=== PATIENT | male | born 1940 | race Two or more races ===

== ENCOUNTER 2016-08-08 18:32 | Emergency (ER) | payer MEDICARE, BC ==
--- NOTE | 2016-08-08 19:25 | RAD ---
HISTORY: Chest pain, pneumonia, CHF COMPARISONS: June 07, 2012 VIEWS:1: Single frontal portable view of the chest at 7:20 PM FINDINGS: LINES AND TUBES: None. CARDIOMEDIASTINAL SILHOUETTE: The aorta is tortuous. The cardiomediastinal silhouette is otherwise normal for portable technique. PLEURA: The costophrenic angles are sharp. No pleural abnormalities are noted. LUNG PARENCHYMA: The lungs are clear. ABDOMEN: The upper abdomen is clear. There is no subphrenic gas. BONES AND SOFT TISSUES: No bone or soft tissue abnormalities are noted. IMPRESSION: NO ACTIVE CARDIOPULMONARY DISEASE.
[2016-08-08] MEDS: Aspirin Low Dose CHEW TAB* 81 MG PO ONE ×2 (19:26→19:39)
[2016-08-08 19:50] LABS: Hematocrit 39 % (42-52); Hemoglobin 12.7 g/dl (14.0-18.0); Mean Corpuscular HGB Conc 33 g/dl (31-36); Mean Corpuscular Hemoglobin 28 pg (27-31); Mean Corpuscular Volume 86 fL (80-94); Mean Platelet Volume 10 um3 (7.4-10.4); Red Cell Distribution Width 15 % (10.5-15); White Blood Count 7.2 10^3/ul (3.5-10.8)
[2016-08-08 19:51] LABS: Comments Flag Yes
[2016-08-08 19:54] LABS: Add Diff/Slide Review? Slide Review Added
[2016-08-08 20:04] LABS: Albumin 4.5 g/dL (3.2-5.2); BUN/Creatinine Ratio 16.8 (8-20); Calcium 9.7 mg/dL (8.6-10.3); EGFR African American 80.9 (>60); EGFR Non-African American 62.9 (>60); Globulin 2.9 g/dL (2-4); Potassium 4.2 mmol/L (3.5-5.0); Total Bilirubin 0.4 mg/dL (0.2-1.0); Total Protein 7.4 g/dL (6.4-8.9); Troponin I 0.01 ng/mL (<0.04)
[2016-08-08 20:50] VITALS: BP 162/60
--- NOTE | 2016-08-08 21:53 | ED ---
Kiki Merlos Claudia, scribed for Little Irizarry MD on 08/08/16 at 2012 . Palpitations / Dysrhythmia - HPI Summary HPI Summary: 76 year old male presents to the ED with intermittent episode of chest pressure and palpitations. The pt notes that the episode have been occurring for the past few weeks and have been waking him up and night and lasting a few minutes. He notes that he had an episode at 400am today of chest pressure and palpitations that woke him up and lasted a few minutes he also noted mild skin diaphoresis. He then went to his PCP office today and they consulted with Dr. Leigh and decided that he should come to the ED for lab work. Pt does not have Dx AFIB but has had palpitations for a while. PMHx of Atrial Septal Defect is noted and pt takes xaerlto daily for it. Pt does note the chest pressure to be a 6.5/10 and denies any SOB during these episodes. - History of Current Complaint Chief Complaint: EDChestWallPain Hx Obtained From: Patient Onset/Duration: Sudden Onset Timing: Intermittent Episodes Lasting: - Allergy/Home Medications Allergies/Adverse Reactions: Allergies Allergy/AdvReac Type Severity Reaction Status Date / Time No Known Allergies Allergy Verified 08/08/16 19:34 PMH/Surg Hx/FS Hx/Imm Hx Previously Healthy: Yes Endocrine/Hematology History: Reports: Hx Anemia Denies: Hx Diabetes Cardiovascular History: Reports: Hx Angina - heaviness, Hx Hypercholesterolemia , Other Cardiovascular Problems/Disorders - Atrial septal defect Denies: Hx Congestive Heart Failure, Hx Hypertension, Hx Pacemaker/ICD Respiratory History: Reports: Hx Sleep Apnea GI History: Reports: Hx Gastroesophageal Reflux Disease, Hx Hiatal Hernia History: Reports: Hx Benign Prostatic Hyperplasia Denies: Hx Dialysis, Hx Renal Disease Musculoskeletal History: Reports: Hx Arthritis, Hx Bursitis, Hx Gout, Hx Orthopedic Injury - left elbow fracture as teen., Hx Tendonitis Sensory History: Reports: Hx Contacts or Glasses - reading, Hx Hearing Aid - x2 , Hx Hearing Problem Opthamlomology History: Reports: Hx Contacts or Glasses - reading Neurological History: Reports: Hx Migraine Psychiatric History: Denies: Hx Panic Disorder - Surgical History Surgery Procedure, Year, and Place: Tonsils, appy Hx Anesthesia Reactions: No Infectious Disease History: No Infectious Disease History: Denies: History Other Infectious Disease, Traveled Outside the [place] in Last 30 Days - Family History Known Family History: Positive: Cardiac Disease - Social History Occupation: Retired Lives: With Family Alcohol Use: Daily Alcohol Amount: 1 glass wine /day Substance Use Type: Reports: None Smoking Status (MU): Former Smoker Type: Cigarettes, Pipe Length of Time of Smoking/Using Tobacco: pipe for 25 years25 year cigarettes (10 -20) per day Have You Smoked in the Last Year: No Review of Systems Positive: Skin Diaphoresis. Negative: Fever, Chills Eyes: Negative ENT: Negative Positive: Palpitations, Chest Pain - chest pressure Respiratory: Negative Gastrointestinal: Negative Genitourinary: Negative Musculoskeletal: Negative Skin: Negative Neurological: Negative Psychological: Normal All Other Systems Reviewed And Are Negative: Yes Physical Exam Triage Information Reviewed: Yes Vital Signs On Initial Exam: Initial Vitals Temp Pulse Resp BP Pulse Ox 97.3 F 61 18 158/78 100 08/08/16 18:37 08/08/16 18:37 08/08/16 18:37 08/08/16 18:37 08/08/16 18:37 Vital Signs Reviewed: Yes Appearance: Positive: Well-Appearing, No Pain Distress Skin: Positive: Warm, Skin Color Reflects Adequate Perfusion, Dry Eyes: Positive: EOMI, LENA ENT: Positive: Pharynx normal, TMs normal Neck: Positive: Supple, Nontender Respiratory/Lung Sounds: Positive: Clear to Auscultation, Breath Sounds Present. Negative: Rales, Rhonchi, Wheezes Cardiovascular: Positive: RRR. Negative: Leg Edema Left, Leg Edema Right Abdomen Description: Positive: Nontender, Soft. Negative: Distended, Guarding Musculoskeletal: Positive: Strength/ROM Intact Neurological: Positive: Sensory/Motor Intact, Alert, Oriented to Person Place, Time, CN Intact II-III Psychiatric: Positive: Affect/Mood Appropriate - Yumiko Coma Scale Coma Scale Total: 15 Diagnostics - Vital Signs Vital Signs Temp Pulse Resp BP Pulse Ox 08/08/16 19:32 99.3 F 63 14 170/86 98 08/08/16 19:02 63 99 08/08/16 19:00 152/73 08/08/16 18:37 97.3 F 61 18 158/78 100 - Laboratory Lab Results: Lab Results 08/08/16 08/08/16 08/08/16 Range/Units 19:34 19:34 19:39 WBC 7.2 (3.5-10.8) 10^3/ul RBC 4.50 (4.0-5.4) 10^6/ul Hgb 12.7 L (14.0-18.0) g/dl Hct 39 L (42-52) % MCV 86 (80-94) fL MCH 28 (27-31) pg MCHC 33 (31-36) g/dl RDW 15 (10.5-15) % Plt Count 108 L (150-450) 10^3/ul MPV 10 (7.4-10.4) um3 Neut % (Auto) 57.2 (38-83) % Lymph % (Auto) 28.2 (25-47) % Cross % (Auto) 10.7 H (1-9) % Eos % (Auto) 3.6 (0-6) % Baso % (Auto) 0.3 (0-2) % Absolute Neuts (auto) 4.1 (1.5-7.7) 10^3/ul Absolute Lymphs (auto) 2.0 (1.0-4.8) 10^3/ul Absolute Monos (auto) 0.8 (0-0.8) 10^3/ul Absolute Eos (auto) 0.3 (0-0.6) 10^3/ul Absolute Basos (auto) 0 (0-0.2) 10^3/ul Absolute Nucleated RBC 0.01 10^3/ul Nucleated RBC % 0.1 INR (Anticoag Therapy) 1.04 (0.89-1.11) Sodium 138 (133-145) mmol/L Potassium 4.2 (3.5-5.0) mmol/L Chloride 104 (101-111) mmol/L Carbon Dioxide 30 (22-32) mmol/L Anion Gap 4 (2-11) mmol/L BUN 19 (6-24) mg/dL Creatinine 1.13 (0.67-1.17) mg/dL Est GFR ( Amer) 80.9 (>60) Est GFR (Non-Af Amer) 62.9 (>60) BUN/Creatinine Ratio 16.8 (8-20) Glucose 103 H (70-100) mg/dL Lactic Acid (0.5-2.0) mmol/L Calcium 9.7 (8.6-10.3) mg/dL Total Bilirubin 0.40 (0.2-1.0) mg/dL AST 21 (13-39) U/L ALT 26 (7-52) U/L Alkaline Phosphatase 50 (34-104) U/L Troponin I 0.01 (<0.04) ng/mL Total Protein 7.4 (6.4-8.9) g/dL Albumin 4.5 (3.2-5.2) g/dL Globulin 2.9 (2-4) g/dL Albumin/Globulin Ratio 1.6 (1-3) 08/08/16 Range/Units 19:39 WBC (3.5-10.8) 10^3/ul RBC (4.0-5.4) 10^6/ul Hgb (14.0-18.0) g/dl Hct (42-52) % MCV (80-94) fL MCH (27-31) pg MCHC (31-36) g/dl RDW (10.5-15) % Plt Count (150-450) 10^3/ul MPV (7.4-10.4) um3 Neut % (Auto) (38-83) % Lymph % (Auto) (25-47) % Cross % (Auto) (1-9) % Eos % (Auto) (0-6) % Baso % (Auto) (0-2) % Absolute Neuts (auto) (1.5-7.7) 10^3/ul Absolute Lymphs (auto) (1.0-4.8) 10^3/ul Absolute Monos (auto) (0-0.8) 10^3/ul Absolute Eos (auto) (0-0.6) 10^3/ul Absolute Basos (auto) (0-0.2) 10^3/ul Absolute Nucleated RBC 10^3/ul Nucleated RBC % INR (Anticoag Therapy) (0.89-1.11) Sodium (133-145) mmol/L Potassium (3.5-5.0) mmol/L Chloride (101-111) mmol/L Carbon Dioxide (22-32) mmol/L Anion Gap (2-11) mmol/L BUN (6-24) mg/dL Creatinine (0.67-1.17) mg/dL Est GFR ( Amer) (>60) Est GFR (Non-Af Amer) (>60) BUN/Creatinine Ratio (8-20) Glucose (70-100) mg/dL Lactic Acid 0.7 (0.5-2.0) mmol/L Calcium (8.6-10.3) mg/dL Total Bilirubin (0.2-1.0) mg/dL AST (13-39) U/L ALT (7-52) U/L Alkaline Phosphatase (34-104) U/L Troponin I (<0.04) ng/mL Total Protein (6.4-8.9) g/dL Albumin (3.2-5.2) g/dL Globulin (2-4) g/dL Albumin/Globulin Ratio (1-3) Result Diagrams: 08/08/16 19:34 08/08/16 19:39 Lab Statement: Any lab studies that have been ordered have been reviewed, and results considered in the medical decision making process. - Radiology CXR Xray Interpretation: No Acute Changes - NO ACUTE CARDIOPULMONARY DISEASE Radiology Interpretation Completed By: Radiologist - EKG 1920 Cardiac Rate: NL EKG Rhythm: Sinus Bradycardia - 59 BEATS/MIN EKG Interpretation: RARE PAC Course/Dx - Course Course Of Treatment: pt with pac's labs o/w normal - Diagnoses Provider Diagnoses: Palpitations Discharge - Discharge Plan Condition: Stable Disposition: HOME Patient Education Materials: Palpitations (ED), Premature Atrial Contractions ( ED) Referrals: Cinda Leigh MD [Medical Doctor] - 3 Days Ye Uribe MD [Primary Care Provider] - 3 Days The documentation as recorded by the Kiki bo Claudia accurately reflects the service I personally performed and the decisions made by Edie bustos Justine, MD.
== END 2016-08-08 20:58 | disposition home or self-care (01) ==
LOC: ED 18:32
DX: R00.2 Palpitations (principal); R07.9 Chest pain, unspecified; Z87.891 Personal history of nicotine dependence
CPT/HCPCS: 36415; 71010; 80053; 83605; 83880; 84484; 85025; 85610; 93005; 99282; A9270-GY

== ENCOUNTER 2016-11-17 17:06 | Emergency (ER) | payer MEDICARE, BC ==
[2016-11-17 17:23] VITALS: BP 138/75
[2016-11-17] MEDS ORDERED: Azithromycin TAB* 250 MG PO ONE (17:48)
--- NOTE | 2016-11-17 17:55 | UC ---
Respiratory Complaint HPI - HPI Summary HPI Summary: Patient was treated for pnuemonia and dispensed medication at a ER in [place], but he was only given a loading dose and 3 days of medication. would like to get the rest of the medication. he reports improvement of symtpoms. - History of Current Complaint Chief Complaint: UCRespiratory Stated Complaint: COUGH,ONGOING PNEUMONIA Time Seen by Provider: 11/17/16 17:18 Hx Obtained From: Patient Onset/Duration: Sudden Onset, Lasting Days Timing: Constant Severity Initially: Moderate Severity Currently: Mild Aggravating Factors: Deep Breaths - Allergies/Home Medications Allergies/Adverse Reactions: Allergies Allergy/AdvReac Type Severity Reaction Status Date / Time No Known Allergies Allergy Verified 11/17/16 17:23 Home Medications: Home Medications Albuterol HFA INHALER* [Ventolin HFA Inhaler*] 1 - 2 puff INH Q6H PRN 11/17/16 [ History Confirmed 11/17/16] Benzonatate CAP* [Tessalon 100 MG CAP*] 100 mg PO TID PRN 11/17/16 [History Confirmed 11/17/16] Finasteride TAB* [Proscar TAB*] 5 mg PO DAILY 11/17/16 [History Confirmed ] Hydrocodone-Homatropine 5-1.5mg/5ml* 2.5 ml PO Q4H PRN 11/17/16 [History Confirmed 11/17/16] PMH/Surg Hx/FS Hx/Imm Hx Previously Healthy: Yes - Surgical History Surgical History: Yes Surgery Procedure, Year, and Place: Tonsils, appendectomy - Family History Known Family History: Positive: None, Cardiac Disease - Social History Alcohol Use: None Alcohol Amount: 1 glass wine /day Substance Use Type: None Smoking Status (MU): Former Smoker Type: Cigarettes, Pipe Length of Time of Smoking/Using Tobacco: pipe for 25 years25 year cigarettes (10 -20) per day Have You Smoked in the Last Year: No - Immunization History Most Recent Influenza Vaccination: 2014 Most Recent Tetanus Shot: 2009 Most Recent Pneumonia Vaccination: never Review of Systems Constitutional: Negative Skin: Negative Eyes: Negative ENT: Negative Respiratory: Cough Cardiovascular: Negative Gastrointestinal: Negative Genitourinary: Negative Motor: Negative Neurovascular: Negative Musculoskeletal: Negative Neurological: Negative Psychological: Negative All Other Systems Reviewed And Are Negative: Yes Physical Exam Triage Information Reviewed: Yes Appearance: No Pain Distress, Well-Nourished, Ill-Appearing Vital Signs: Initial Vital Signs Temp 98.1 F 11/17/16 17:11 Pulse 64 11/17/16 17:11 Resp 18 11/17/16 17:11 BP 138/75 11/17/16 17:11 Pulse Ox 98 11/17/16 17:11 Vital Signs Reviewed: Yes Eye Exam: Normal ENT Exam: Normal Dental Exam: Normal Neck exam: Normal Neck: Positive: Supple, Nontender, No Lymphadenopathy Respiratory: Positive: Chest non-tender, Lungs clear, Normal breath sounds Cardiovascular Exam: Normal Cardiovascular: Positive: RRR, No Murmur, Pulses Normal Abdominal Exam: Normal Abdomen Description: Positive: Nontender, No Organomegaly, Soft Bowel Sounds: Positive: Present Musculoskeletal Exam: Normal Musculoskeletal: Positive: Strength Intact, ROM Intact, No Edema Neurological Exam: Normal Neurological: Positive: Alert, Muscle Tone Normal Psychological Exam: Normal Skin Exam: Normal UC Diagnostic Evaluation - Laboratory O2 Sat by Pulse Oximetry: 98 Respiratory Course/Dx - Course Course Of Treatment: hx obtained, exam performed ,meds reviewed, given the extra tab of medication and educated on use of inhalers - Differential Dx/Diagnosis Differential Diagnosis/HQI/PQRI: Asthma, Bronchitis, Influenza, Laryngitis, Sinusitis Provider Diagnoses: pneumonia Discharge - Discharge Plan Condition: Stable Disposition: HOME Patient Education Materials: Azithromycin (By mouth) Additional Instructions: 1. continue with the medication as prescribed. 2. Use the inhaler with the spacer 3. Follow up with Dr Uribe in the next few weeks unless your symptoms return, follow up sooner.
== END 2016-11-17 18:07 | disposition home or self-care (01) ==
LOC: UCEAST 17:06
DX: J18.9 Pneumonia, unspecified organism (principal); Z87.891 Personal history of nicotine dependence
CPT/HCPCS: 99211; A9270-GY; G0463

== ENCOUNTER 2016-12-18 06:20 | Day surgery (SDC) | payer MEDICARE, BC ==
--- NOTE | 2016-12-13 17:15 | HP ---
CC: Dr. Uribe * HISTORY AND PHYSICAL: DATE OF PLANNED ADMISSION AND SURGERY: 12/18/16 HISTORY OF PRESENT ILLNESS: Mr. Rogers is a 76-year-old white male, who is admitted with microscopic hematuria and suspicious bladder lesions for cystoscopy and bladder biopsies. I have been following Mr. Rogers for several years because of bladder outlet obstruction and prostate enlargement. He was doing fine and has been on finasteride as treatment for his prostate enlargement. About 1 year ago, he was noted to have a new onset of microscopic hematuria. This coincided with starting anticoagulation because of an episode of TIA. His TIA was worked up and he was found to have a patent foramen ovale and has been followed by Dr. Leigh for the condition. He has been maintained on metoprolol and amlodipine and on Xarelto. He had a few episodes of initial gross hematuria, which seemed to be prostatic in nature. He had workup of the hematuria 3 months ago and cystoscopy showed a hyperemic prostatic urethra that bled easily to instrumentation. There were 2 hyperemic flat lesions each measuring about 1 cm in size, located in the mid anterior bladder wall. The lesions did not look suspicious at that time and they were possibly inflammatory. He was given a course of antibiotic and had a repeat cystoscopy 2 months later. The follow-up cystoscopy continued to show the same lesions in the anterior bladder wall. Because of that finding, the patient is admitted for cystoscopy and excisional biopsies of the above lesions. PAST MEDICAL HISTORY AND SYSTEM REVIEW: Detailed in the preoperative history and physical done by Dr. Uribe and dated 12/05/16. The patient has history of carotid artery disease, hypertension, hyperlipidemia, TIA, COPD, and GERD. ALLERGIES: He denies any allergies to medications. SOCIAL HISTORY: He gives distant history of smoking. PHYSICAL EXAMINATION GENERAL: Moderately overweight, otherwise healthy looking male. VITAL SIGNS: Blood pressure 110/70, pulse of 56. LUNGS: Clear. HEART: Regular and rhythmic. No murmurs. ABDOMEN: Soft. No masses, no tenderness, and no CVA tenderness. GENITOURINARY: External genitalia are normal. RECTAL: Showed an enlarged but non-suspicious prostate. IMPRESSION: 1. Benign prostatic hyperplasia. 2. Recurrent episodes of hematuria that seem to be prostatic in origin. 3. Persistent microscopic hematuria with suspicious bladder lesions. 4. Past history of smoking. PLAN: 1. Continue on finasteride for the prostate enlargement and the prostatic hematuria. 2. Cystoscopy and excisional biopsies of the above lesions. The procedure will be done without stopping his Xarelto. I discussed the procedure in detail including the risks of infection and hematuria. All his questions were answered. [id number]/[facility] #: [id number] [facility] HOSPITALRene
[~2016-12-18 06:20] MED LIST: Buffered Lidocaine 0.9% SYRIN* 5 ML/SYR SYRINGE INTRADERM ONE; Famotidine IV* 10 MG/ML 2 ML (20 mg) IV ONE
[2016-12-18] MEDS ORDERED: Famotidine IV* 10 MG/ML 2 ML (20 mg) ONE (06:41)
[2016-12-18] MEDS ORDERED: cefTRIAXone(*) 2 GM ADDV.VIAL IVPB ONE ×2 (06:41→06:42)
[2016-12-18] MEDS ORDERED: Levalbuterol 1.25MG/0.5ML NEB ONE (06:41)
[2016-12-18] MEDS ORDERED: Buffered Lidocaine 0.9% SYRIN* 5 ML/SYR SYRINGE ONE (06:42)
[2016-12-18] MEDS ORDERED: Levalbuterol 0.63MG/3ML NEB INH ONE (07:00)
[2016-12-18] MEDS ORDERED: fentaNYL* 50 MCG/ML 2 ML VIAL (100 MCG VIAL) ONE (07:44)
[2016-12-18] MEDS ORDERED: Midazolam* 1 MG/ML 5 ML VIAL (5 MG) ONE (07:44)
[2016-12-18] MEDS ORDERED: Propofol* 10 MG/ML 20 ML BTL IV PUSH ONE (07:50)
[2016-12-18] MEDS ORDERED: Dexamethasone IV* 4 MG/ML 1 ML (4 MG) ONE (07:50)
[2016-12-18] MEDS ORDERED: Ondansetron INJ* 2 MG/ML VIAL ONE (07:50)
[2016-12-18] MEDS ORDERED: Lidocaine 2% PF * 5 ML VIAL ONE (07:50)
[2016-12-18] MEDS ORDERED: fentaNYL* 50 MCG/ML 2 ML VIAL (100 MCG VIAL) IV PRN (09:44)
[2016-12-18] MEDS ORDERED: Acetaminophen TAB* 325 MG PO PRN (09:44)
[2016-12-18] MEDS ORDERED: oxyCODONE TAB* 5 MG TAB PO PRN (09:44)
[2016-12-18] MEDS ORDERED: DiMENhydriNATE IV* 50 MG/ML VIAL IV PUSH PRN (09:44)
[2016-12-18 10:28] VITALS: BP 180/53
--- NOTE | 2016-12-18 14:58 | OP ---
CC: Dr. Uribe * DATE OF OPERATION: 12/18/16 - [facility] DATE OF : 38 SURGEON: Deondre Ospina MD. ANESTHESIOLOGIST: Dr. Trujillo. ANESTHESIA: General. PRE-OP DIAGNOSES: 1. Benign prostatic hyperplasia. 2. Recurrent episodes of hematuria. 3. Two bladder lesions. POST-OP DIAGNOSES: 1. Benign prostatic hyperplasia. 2. Recurrent episodes of hematuria. 3. Two bladder lesions. 4. Pending pathology. OPERATIVE PROCEDURES: 1. Cystoscopy. 2. Excisional biopsies and fulguration of two bladder lesions (anterior wall, base of bladder, 1 cm each). INDICATION FOR THE PROCEDURE: Mr. Rogers is a 76-year-old white male who has a large obstructing prostate and has had recurrent episodes of hematuria since he was started on anticoagulation. Workup showed normal upper tracts, a large vascular prostate, and there were two lesions each measuring about 1 cm in the anterior bladder wall. The lesions were flat and looked inflammatory, possibly representing bladder tumor. Because of the above findings and the persistent microhematuria, the above procedure was advised and accepted. PATHOLOGY AT CYSTOSCOPY: The penile and bulbar urethra look normal. The prostatic urethra measured about 3 cm in length and there was significant degree of obstruction by enlargement of the lateral lobes of the prostate and an elevation of the bladder neck. The prostatic urethra was vascular. There were some inflammatory polyps noted in the prostatic urethra. Examination of the bladder showed moderate and diffuse bladder trabeculations. The ureteral orifices looked normal. Clear efflux was seen coming from both of them. No calculi or diverticula were noted. There were two lesions measuring 1 cm each. One lesion was located in the right anterior bladder wall just to the right of the air bubble. It was flat and there was some oozing of blood noted from it. It was not papillary. There was a flat lesion that was likely hyperemic noted in the mid base of the bladder. No other suspicious bladder lesions were seen. DESCRIPTION OF PROCEDURE: After successful general anesthesia, the patient was placed in the lithotomy position and was prepped and draped for a cystoscopy. Cystoscopy was performed. The bladder was entered and the above findings were noted. Using the rigid biopsy forceps, the two above lesions were excised and sent separately. The sites of the biopsies and the surrounding tissue was thoroughly fulgurated with the Bugbee electrode achieving good hemostasis. No residual lesions were seen. The scope was removed and a size 16-Ch[place] Pollard catheter was passed inside the bladder and the balloon inflated with 10 cc of water. The patient tolerated the procedure well and left the operating room in good condition. The patient will be seen in the office to discuss the results of the pathology. Additional treatment will depend upon the pathology report. [id number]/[facility] #: [id number] MTDD
== END 2016-12-18 10:54 | disposition home or self-care (01) ==
LOC: OR 06:20
PROVIDERS: ATTEND Urology
DX: N32.89 Other specified disorders of bladder (principal); R31.29 Other microscopic hematuria; N40.0 Benign prostatic hyperplasia without lower urinary tract symptoms; I10 Essential (primary) hypertension; Q21.1 Atrial septal defect; G47.33 Obstructive sleep apnea (adult) (pediatric); J44.9 Chronic obstructive pulmonary disease, unspecified; Z79.01 Long term (current) use of anticoagulants
CPT/HCPCS: 88305; A9270-GY; J0696; J1100; J2250; J2405; J2704; J3010

== ENCOUNTER 2017-07-24 18:21 | Emergency (ER) | payer MEDICARE, BC ==
--- OUTSIDE RECORDS SUMMARY | 2017-07-24 19:08 | XMS REPORT ---
:1940 External Reference #:[id number] Author Organization [employer] Address [address] [address] Phone [phone] Care Team Providers Name Role Phone Ye Uribe III, MD Primary Care Physician Unavailable Payers Type Date Identification Numbers Payment Provider Subscriber Medicare Primary Effective: Policy Number: Medicare Corbin Millan 2009 [id number] PayID: [id number] [address] [place] [address] Medigap Part B Policy Number: [id number] [facility] Corbin Millan PayID: [id number] [address] [place] [address] Advance Directives Type Date Description Status Comment Other Directive 12/13/2014 Health Care Proxy Current and Verified Problems Date Description Provider Status Onset: 11/23/2009 Shoulder joint pain Ye Uribe M.D. Active Onset: 11/23/2009 Mixed hyperlipidemia Ye Uribe M.D. Active Onset: 11/23/2009 Peptic reflux disease Mathieu Barnett M.D. Active Onset: 01/02/2011 Pure hypercholesterolemia Ye Uribe M.D. Active Onset: 01/02/2011 Impaired fasting glycaemia Ye Uribe M.D. Active Onset: 06/05/2011 Benign essential hypertension Ye Uribe M.D. Active Onset: 06/05/2011 Flatulence, eructation and gas pain Ye Uribe M.D. Active Onset: 06/05/2011 Palpitations Ye Uribe M.D. Active Onset: 06/08/2012 Obstructive sleep apnea syndrome Ye Uribe M.D. Active Onset: 06/08/2012 Benign localized hyperplasia of Ye Uribe M.D. Active prostate Onset: 06/02/2014 Dyssomnia Jenise Yañez MD Active Onset: 06/02/2014 Gastroesophageal reflux disease Jenise Yañez MD Active Onset: 12/19/2014 Transient cerebral ischemia Cinda Leigh M.D. 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 Active Onset: 06/13/2015 Benign prostatic hypertrophy without Ye Uribe M.D. Active outflow obstruction Onset: 08/15/2016 Carotid artery occlusion Cinda Leigh M.D. Active Onset: 10/01/2016 Amaurosis fugax Cinda Leigh M.D. Active Family History Date Family Member(s) Problem(s) Comments Father Lung Cancer Father due to Cancer () - former smoker, at age 85 Mother at age 87 of a heart attack First Sister Sleep Apnea Social History Type Date Description Comments Marital Status Lives With Occupation Retired [employer] Cigarette Use Former Cigarette Smoker Quit 2009; pipe usually, cigarettes max 1ppd. Began age 20 ETOH Use Denies alcohol use Smoking Patient is a former smoker quit 05/13 ppd Recreational Drug Use Denies Drug Use Daily Caffeine Does Not Consume Caffeine Exercise Type/Frequency Exercises regularly walks daily, practicing tennis Allergies, Adverse Reactions, Alerts Date Description Reaction Status Severity Comments 06/08/2007 NKDA active Medications Medication Date Status Form Strength Qnty SIG Indications Ordering Provider Metoprolol 03/08/ Active Tablets ER 25mg 30tabs 1 by mouth Cinda Succinate ER 2014 24HR every day Jin Leigh Xarelto 01/03/ Active Tablets 20mg 90tabs 1 by mouth Cinda 2014 every day carri Leigh M.D. Amlodipine / Active Tablets 5mg 30tabs take one Cinda Besylate 0000 tablet by Reese, mouth every M.D. day Ranitidine HCL / Active Tablets 300mg 1 by mouth Unknown 0000 every day Gas-X Extra / Active Chewtabs 125mg 1 after Unknown Strength 0000 dinner prn Finasteride / Active Tablets 5mg 1 by mouth Unknown 0000 every day Atorvastatin / Active Tablets 10mg 90tabs Take One Ye Soto Calcium 0000 Tablet By Jojo, Mouth Every M.D. Day Bactrim 12/05/ Hx Tablets 10tabs 1 tab by Ye Soto 2016 - mouth twice Jojo, 01/05/ a day x 5 M.D. 2016 days Klonopin 06/15/ Hx Tablets 1mg 30tabs Not Taking R00.2 Viv Mancera 2015 - Stackdhara, M.D. 2016 Gas-X Extra 05/22/ Hx Capsules 125mg 1 tab po Ye Soto Strength 2011 - prn Jojo, M.D. 2014 Nicorelief 05/22/ Hx Gum 2mg 120uni qid pradelso Soto 2011 - ts Jojo, M.D. 2012 Malarone 05/29/ Hx Tablets 300mg 12tabs i po q1w, Ye Soto 2009 - 1-2 weeks Jojo, 11/23/ M.DMaddison 2009 travel, once a week while there, /q1w for 4 weeks after returning Protonix 05/17/ Hx Solution 40mg 90unit 1 po qd 530.81 Ye Soto 2009 - Rec s Jojo, M.D. 2009 Protonix 05/17/ Hx Tablets DR 40mg 90tabs 1 po qd 530.81 Ye Soto 2009 - Jojo, M.D. 2009 Tums / Hx Chewtabs 500mg 1 savana Lynne 0000 - MD Satya 2007 Glucosamine / Hx Tablets 500mg. 1 PO every Other Sulfate 0000 - third day Physician 2014 Aspirin / Hx Tablets DR 81mg 1 tab po qd Unknown 0000 - 2014 Lipitor / Hx Tablets 20mg 90tabs Stopped 2-3 Ye Soto 0000 - weeks ago. Jojo, 08/12/ Joey Abdi 2013 1/2 Tablet By Mouth At Bedtime Ibuprofen 00// Hx Tablets 200mg 100tab 1 tab po Unknown 0000 - s prn 2014 Econazole / Hx Cream 1% 30g topical bid Unknown Nitrate 0000 - max 4 weeks 2013 Prilosec /00/ Hx 1 tab po Unknown 0000 - daily prn 2014 Nicorette / Hx Gum 2mg 1 gum 3-4 Unknown 0000 - times daily 11/28/ as needed. 2014 Aspirin / Hx Tablets DR 81mg 1 by mouth Unknown 0000 - every day 2014 Medications Administered in Office Medication Date Status Form Strength Qnty SIG Indications Ordering Provider Influenza Administered Injection Unknown Virus Vaccine 015 Influenza Administered Injection Unknown Virus Vaccine 014 Influenza Administered Injection Unknown Virus Vaccine 013 Immunizations CPT Code Status Date Vaccine Lot # [id number] Given 02/13/2017 Influenza Virus Vaccine, Quadrivalent, Split, Preservative Free [id number] Given 02/22/2016 Influenza Virus Vaccine, Quadrivalent, Split Virus, Im Use 69642 Given 06/13/2015 Tdap - Tetanus/Diptheria/Acellular Pertussis [id number] Given 06/10/2014 Pneumococcal Conjugate Vaccine 13 Valent For [id number] Intramuscular Use 11788 Given 07/06/2012 Zoster (Zostavax) 34963 Given 07/06/2012 Zoster (Zostavax) [id number] 45185 Given 02/10/2008 Influenza Virus 3Yrs & Over [id number] 73981 Given 05/16/2005 Td (History By Patient) 71041 Given 04/09/2004 Pneumovax (History By Patient) [id number] Vital Signs Date Vital Result Comment 07/14/2017 Height 67 inches 5'7" Weight 200.00 lb Heart Rate 68 /min BP Systolic Sitting 122 mmHg BP Diastolic Sitting 72 mmHg Respiratory Rate 14 /min O2 % BldC Oximetry 96 % BMI (Body Mass Index) 31.3 kg/m2 06/17/2017 Height 67 inches 5'7" Weight 203.00 lb Heart Rate 71 /min BP Systolic Sitting 138 mmHg BP Diastolic Sitting 72 mmHg Body Temperature 97.2 F O2 % BldC Oximetry 98 % BMI (Body Mass Index) 31.8 kg/m2 04/16/2017 Height 67 inches 5'7" Weight 202.00 lb Heart Rate 60 /min BP Systolic Sitting 125 mmHg BP Diastolic Sitting 80 mmHg Body Temperature 97.4 F BMI (Body Mass Index) 31.6 kg/m2 01/06/2017 Height 67 inches 5'7" Weight 197.00 lb with shoes Heart Rate 72 /min BP Systolic Sitting 134 mmHg BP Diastolic Sitting 76 mmHg Respiratory Rate 18 /min O2 % BldC Oximetry 95 % BMI (Body Mass Index) 30.9 kg/m2 12/05/2016 Weight 194.00 lb Heart Rate 67 /min BP Systolic Sitting 128 mmHg BP Diastolic Sitting 68 mmHg Body Temperature 97.4 F O2 % BldC Oximetry 96 % 11/25/2016 Weight 198.00 lb Heart Rate 68 /min BP Systolic 118 mmHg BP Diastolic 62 mmHg Body Temperature 97.8 F O2 % BldC Oximetry 99 % 10/24/2016 Weight 200.50 lb Heart Rate 66 /min BP Systolic 136 mmHg BP Diastolic 68 mmHg Body Temperature 97.9 F O2 % BldC Oximetry 98 % 10/14/2016 Height 67 inches 5'7" Weight 203.12 lb Heart Rate 62 /min BP Systolic 120 mmHg BP Diastolic 80 mmHg Body Temperature 97.8 F O2 % BldC Oximetry 98 % BMI (Body Mass Index) 31.8 kg/m2 10/01/2016 Height 67 inches 5'7" Weight 201.31 lb without shoes Heart Rate 64 /min BP Systolic Sitting 114 mmHg Lue reg cuff BP Diastolic Sitting 70 mmHg Lue reg cuff BP Systolic Standing 110 mmHg Lue reg cuff BP Diastolic Standing 70 mmHg Lue reg cuff Respiratory Rate 16 /min BMI (Body Mass Index) 31.5 kg/m2 Ejection Fraction 55-60% date 11/24/2014 ECHO 08/15/2016 Height 69 inches 5'9" Weight 202.00 lb Heart Rate 62 /min BP Systolic Sitting 136 mmHg right arm, reg cuff BP Diastolic Sitting 80 mmHg right arm, reg cuff BP Systolic Standing 124 mmHg right arm, reg cuff BP Diastolic Standing 78 mmHg right arm, reg cuff BMI (Body Mass Index) 29.8 kg/m2 Ejection Fraction 55-60% 11/24/14 08/12/2016 Weight 205.00 lb Heart Rate 54 /min BP Systolic Sitting 124 mmHg BP Diastolic Sitting 70 mmHg Respiratory Rate 15 /min Body Temperature 98.0 F O2 % BldC Oximetry 98 % 08/08/2016 Weight 207.00 lb with shoes Heart Rate 69 /min BP Systolic 130 mmHg BP Diastolic 80 mmHg O2 % BldC Oximetry 99 % 07/09/2016 Height 69 inches 5'9" Weight 204.00 lb Heart Rate 67 /min BP Systolic 130 mmHg BP Diastolic 82 mmHg Respiratory Rate 14 /min O2 % BldC Oximetry 94 % BMI (Body Mass Index) 30.1 kg/m2 06/20/2016 Height 69 inches 5'9" Weight 204.00 lb Heart Rate 68 /min BP Systolic 130 mmHg BP Diastolic 80 mmHg Body Temperature 98.0 F O2 % BldC Oximetry 97 % BMI (Body Mass Index) 30.1 kg/m2 06/06/2016 Weight 205.00 lb Heart Rate 60 /min BP Systolic 120 mmHg BP Diastolic 78 mmHg Respiratory Rate 14 /min O2 % BldC Oximetry 95 % 05/22/2016 Weight 205.00 lb Heart Rate 64 /min BP Systolic Sitting 124 mmHg BP Diastolic Sitting 80 mmHg Body Temperature 97.7 F O2 % BldC Oximetry 98 % 03/21/2016 Height 68.5 inches 5'8.50" Weight 199.00 lb no shoes Heart Rate 72 /min BP Systolic Sitting 130 mmHg Lue reg cuff BP Diastolic Sitting 76 mmHg Lue reg cuff BP Systolic Standing 126 mmHg Lue reg cuff BP Diastolic Standing 74 mmHg Lue reg cuff Respiratory Rate 15 /min BMI (Body Mass Index) 29.8 kg/m2 Ejection Fraction 55-60% 11/24/2014 01/08/2016 Height 68.5 inches 5'8.50" Weight 195.00 lb Heart Rate 60 /min BP Systolic 126 mmHg BP Diastolic 76 mmHg Respiratory Rate 12 /min O2 % BldC Oximetry 97 % BMI (Body Mass Index) 29.2 kg/m2 12/20/2015 Weight 198.00 lb Heart Rate 57 /min BP Systolic Sitting 124 mmHg BP Diastolic Sitting 74 mmHg O2 % BldC Oximetry 98 % 11/09/2015 Weight 200.00 lb Heart Rate 59 /min BP Systolic Sitting 139 mmHg BP Diastolic Sitting 81 mmHg Body Temperature 97.4 F 09/18/2015 Height 67.5 inches 5'7.50" Weight 201.00 lb with shoes Heart Rate 62 /min BP Systolic Sitting 156 mmHg Ra reg cuff BP Diastolic Sitting 94 mmHg Ra reg cuff BP Systolic Standing 154 mmHg Ra reg cuff BP Diastolic Standing 92 mmHg Ra reg cuff Respiratory Rate 16 /min BMI (Body Mass Index) 31.0 kg/m2 Ejection Fraction 55-60% date 11/24/14 ECHO 08/31/2015 Height 67.5 inches 5'7.50" Heart Rate 64 /min BP Systolic Sitting 136 mmHg BP Diastolic Sitting 80 mmHg Respiratory Rate 16 /min 08/08/2015 Height 67.5 inches 5'7.50" Weight 204.00 lb Heart Rate 63 /min BP Systolic 127 mmHg BP Diastolic 80 mmHg Body Temperature 96.7 F O2 % BldC Oximetry 97 % BMI (Body Mass Index) 31.5 kg/m2 06/15/2015 Height 67.5 inches 5'7.50" Weight 203.00 lb Heart Rate 60 /min BP Systolic Sitting 124 mmHg BP Diastolic Sitting 86 mmHg Respiratory Rate 14 /min BMI (Body Mass Index) 31.3 kg/m2 06/13/2015 Height 67.5 inches 5'7.50" Weight 205.00 lb Heart Rate 62 /min BP Systolic Sitting 126 mmHg BP Diastolic Sitting 84 mmHg Body Temperature 97.0 F O2 % BldC Oximetry 98 % BMI (Body Mass Index) 31.6 kg/m2 04/24/2015 Height 68 inches 5'8" Weight 201.00 lb Heart Rate 60 /min BP Systolic 110 mmHg BP Diastolic 64 mmHg O2 % BldC Oximetry 98 % BMI (Body Mass Index) 30.6 kg/m2 03/27/2015 Height 68 inches 5'8" Weight 198.50 lb w/o shoes Heart Rate 62 /min reg BP Systolic Sitting 120 mmHg Rue, reg cuff BP Diastolic Sitting 76 mmHg Rue, reg cuff BP Systolic Standing 122 mmHg Rue BP Diastolic Standing 70 mmHg Rue Respiratory Rate 18 /min BMI (Body Mass Index) 30.2 kg/m2 Ejection Fraction 55-60% As of 11/24/14 echo 02/24/2015 Height 68 inches 5'8" Weight 196.00 lb no shoes BP Systolic Sitting 148 mmHg LA, reg cuff BP Diastolic Sitting 88 mmHg LA, reg cuff BP Systolic Standing 142 mmHg LA BP Diastolic Standing 90 mmHg LA Respiratory Rate 16 /min BMI (Body Mass Index) 29.8 kg/m2 Ejection Fraction 55-60% 11/24/2014 02/09/2015 Height 68 inches 5'8" Weight 200.00 lb Heart Rate 70 /min BP Systolic Sitting 126 mmHg BP Diastolic Sitting 82 mmHg Body Temperature 98.0 F O2 % BldC Oximetry 98 % BMI (Body Mass Index) 30.4 kg/m2 12/27/2014 Height 68 inches 5'8" Weight 197.00 lb Heart Rate 58 /min BP Systolic Sitting 118 mmHg BP Diastolic Sitting 62 mmHg Body Temperature 98.0 F O2 % BldC Oximetry 98 % BMI (Body Mass Index) 30.0 kg/m2 12/19/2014 Height 68 inches 5'8" Weight 198.00 lb w/o shoes Heart Rate 68 /min reg BP Systolic 128 mmHg Lue, reg cuff BP Diastolic 76 mmHg Lue, reg cuff BP Systolic Sitting 138 mmHg Rue, reg cuff BP Diastolic Sitting 74 mmHg Rue, reg cuff BP Systolic Standing 144 mmHg Rue BP Diastolic Standing 80 mmHg Rue Respiratory Rate 18 /min BMI (Body Mass Index) 30.1 kg/m2 12/14/2014 Height 68 inches 5'8" Weight 196.00 lb Heart Rate 58 /min BP Systolic Sitting 132 mmHg BP Diastolic Sitting 80 mmHg BMI (Body Mass Index) 29.8 kg/m2 11/28/2014 Weight 196.50 lb Heart Rate 60 /min BP Systolic Sitting 162 mmHg BP Diastolic Sitting 80 mmHg O2 % BldC Oximetry 98 % 09/22/2014 Weight 199.00 lb Heart Rate 59 /min BP Systolic 156 mmHg BP Diastolic 88 mmHg Body Temperature 97.9 F O2 % BldC Oximetry 98 % 09/15/2014 Height 69 inches 5'9" Weight 197.00 lb Heart Rate 61 /min BP Systolic Sitting 130 mmHg BP Diastolic Sitting 72 mmHg Respiratory Rate 20 /min O2 % BldC Oximetry 98 % BMI (Body Mass Index) 29.1 kg/m2 06/23/2014 Height 68 inches 5'8" Weight 201.00 lb Heart Rate 68 /min BP Systolic Sitting 132 mmHg BP Diastolic Sitting 86 mmHg Pain Level 12 BMI (Body Mass Index) 30.6 kg/m2 06/10/2014 Height 68 inches 5'8" Weight 202.00 lb Heart Rate 85 /min BP Systolic Sitting 139 mmHg BP Diastolic Sitting 78 mmHg BMI (Body Mass Index) 30.7 kg/m2 06/02/2014 Height 68 inches 5'8" Weight 204.12 lb with shoes on Heart Rate 73 /min BP Systolic Sitting 136 mmHg BP Diastolic Sitting 74 mmHg Respiratory Rate 20 /min Body Temperature 97.8 F O2 % BldC Oximetry 96 % BMI (Body Mass Index) 31.0 kg/m2 Neck Circumference in inches 17 05/31/2014 Weight 201.25 lb Heart Rate 66 /min BP Systolic Sitting 148 mmHg BP Diastolic Sitting 83 mmHg O2 % BldC Oximetry 99 % 05/03/2014 Weight 201.75 lb Heart Rate 74 /min BP Systolic Sitting 132 mmHg BP Diastolic Sitting 76 mmHg Body Temperature 97.5 F 03/15/2014 Height 68 inches 5'8" Weight 201.00 lb Heart Rate 64 /min BP Systolic Sitting 136 mmHg BP Diastolic Sitting 80 mmHg Body Temperature 97.7 F BMI (Body Mass Index) 30.6 kg/m2 01/03/2014 Height 68 inches 5'8" Weight 200.50 lb Heart Rate 64 /min BP Systolic Sitting 138 mmHg BP Diastolic Sitting 86 mmHg Body Temperature 97.2 F BMI (Body Mass Index) 30.5 kg/m2 12/02/2013 Weight 201.50 lb Heart Rate 74 /min BP Systolic Sitting 146 mmHg BP Diastolic Sitting 82 mmHg Body Temperature 97.4 F 08/12/2013 Height 68.25 inches 5'8.25" Weight 205.75 lb Heart Rate 72 /min BP Systolic Sitting 144 mmHg BP Diastolic Sitting 86 mmHg Body Temperature 97.2 F BMI (Body Mass Index) 31.1 kg/m2 06/09/2013 Height 68.5 inches 5'8.50" Weight 207.50 lb Heart Rate 68 /min BP Systolic Sitting 140 mmHg BP Diastolic Sitting 84 mmHg BMI (Body Mass Index) 31.1 kg/m2 03/11/2013 Weight 205.25 lb Heart Rate 62 /min BP Systolic Sitting 142 mmHg BP Diastolic Sitting 84 mmHg 07/07/2012 Height 68.25 inches 5'8.25" Weight 205.50 lb Heart Rate 80 /min BP Systolic Sitting 142 mmHg BP Diastolic Sitting 82 mmHg BMI (Body Mass Index) 31.0 kg/m2 06/08/2012 Height 68.25 inches 5'8.25" Weight 207.00 lb Heart Rate 78 /min BP Systolic Sitting 138 mmHg BP Diastolic Sitting 80 mmHg BMI (Body Mass Index) 31.2 kg/m2 12/04/2011 Height 68.25 inches 5'8.25" Weight 202.50 lb Heart Rate 80 /min BP Systolic Sitting 136 mmHg BP Diastolic Sitting 80 mmHg BMI (Body Mass Index) 30.6 kg/m2 06/05/2011 Height 68.25 inches 5'8.25" Weight 205.25 lb Heart Rate 72 /min 67 W/Home Monitor BP Systolic Sitting 166 mmHg 169/85 W/Home Monitor BP Diastolic Sitting 88 mmHg 169/85 W/Home Monitor BMI (Body Mass Index) 31.0 kg/m2 05/22/2011 Height 68.5 inches 5'8.50" Weight 206.00 lb Heart Rate 78 /min BP Systolic Sitting 150 mmHg BP Diastolic Sitting 88 mmHg O2 % BldC Oximetry 98 % BMI (Body Mass Index) 30.9 kg/m2 01/02/2011 Weight 205.00 lb Heart Rate 80 /min BP Systolic Sitting 142 mmHg BP Diastolic Sitting 80 mmHg 09/25/2010 Weight 202.00 lb Heart Rate 70 /min BP Systolic Sitting 150 mmHg BP Diastolic Sitting 90 mmHg 07/05/2010 Weight 205.00 lb Heart Rate 61 /min BP Systolic 146 mmHg pts home b/p machine- 175/87 BP Diastolic 82 mmHg pts home b/p machine- 175/87 06/06/2010 Weight 207.00 lb Heart Rate 74 /min BP Systolic Sitting 154 mmHg BP Diastolic Sitting 84 mmHg 04/25/2010 Weight 202.00 lb Heart Rate 74 /min BP Systolic Sitting 150 mmHg BP Diastolic Sitting 80 mmHg O2 % BldC Oximetry 95 % 01/26/2010 Weight 202.00 lb Heart Rate 68 /min BP Systolic Sitting 138 mmHg BP Diastolic Sitting 84 mmHg 11/23/2009 Weight 203.00 lb Heart Rate 84 /min BP Systolic Sitting 136 mmHg BP Diastolic Sitting 84 mmHg 05/17/2009 Height 68.5 inches 5'8.50" Weight 205.00 lb Heart Rate 68 /min BP Systolic Sitting 146 mmHg BP Diastolic Sitting 80 mmHg BMI (Body Mass Index) 30.7 kg/m2 06/07/2008 Height 68.5 inches 5'8.50" Weight 206.00 lb Heart Rate 60 /min BP Systolic Sitting 146 mmHg BP Diastolic Sitting 86 mmHg BMI (Body Mass Index) 30.9 kg/m2 02/10/2008 Height 68.5 inches 5'8.50" Weight 200.00 lb Heart Rate 64 /min BP Systolic Sitting 134 mmHg BP Diastolic Sitting 84 mmHg BMI (Body Mass Index) 30.0 kg/m2 06/08/2007 Height 68.5 inches 5'8.50" Weight 203.00 lb Heart Rate 68 /min BP Systolic Sitting 138 mmHg BP Diastolic Sitting 80 mmHg BMI (Body Mass Index) 30.4 kg/m2 Results Test Date Test Result H/L Range Note Order 12/05/2016 EKG given to Creatinine 10/01/2016 Creatinine 1.14 mg/dL 0.67-1.17 Egfr Non- 62.3 >60 Egfr 80.1 >60 1 Laboratory test finding 10/01/2016 Blood Urea Nitrogen BUN 19 mg/dL 6-24 Laboratory test finding 08/08/2016 Troponin-I (TnI) 0.01 ng/mL <0.04 2 Comp Metabolic Panel 08/08/2016 Sodium 138 mmol/L 133-145 Potassium 4.2 mmol/L 3.5-5.0 Chloride 104 mmol/L 101-111 Co2 Carbon Dioxide 30 mmol/L 22-32 Anion Gap 4 mmol/L 2-11 Glucose 103 mg/dL High 70-100 Blood Urea Nitrogen 19 mg/dL -24 Creatinine 1.13 mg/dL 0.67-1.17 BUN/Creatinine Ratio 16.8 8-20 Calcium 9.7 mg/dL 8.6-10.3 Total Protein 7.4 g/dL 6.4-8.9 Albumin 4.5 g/dL 3.2-5.2 Globulin 2.9 g/dL 2-4 Albumin/Globulin Ratio 1.6 1-3 Total Bilirubin 0.40 mg/dL 0.2-1.0 Alkaline Phosphatase 50 U/L 34-104 Alt 26 U/L 7-52 Ast 21 U/L 13-39 Egfr Non- 62.9 >60 Egfr 80.9 >60 3 Inr/Protime 08/08/2016 Inr 1.04 0.89-1.11 CBC Auto Diff 08/08/2016 White Blood Count 7.2 10^3/uL 3.5-10.8 Red Blood Count 4.50 10^6/uL 4.0-5.4 Hemoglobin 12.7 g/dL Low 14.0-18.0 Hematocrit 39 % Low 42-52 Mean Corpuscular Volume 86 fL 80-94 Mean Corpuscular Hemoglobin 28 pg 27-31 Mean Corpuscular HGB Conc 33 g/dL 31-36 Red Cell Distribution Width 15 % 10.5-15 Platelet Count 108 10^3/uL Low 150-450 Mean Platelet Volume 10 um3 7.4-10.4 Abs Neutrophils 4.1 10^3/uL 1.5-7.7 Abs Lymphocytes 2.0 10^3/uL 1.0-4.8 Abs Monocytes 0.8 10^3/uL 0-0.8 Abs Eosinophils 0.3 10^3/uL 0-0.6 Abs Basophils 0 10^3/uL 0-0.2 Abs Nucleated RBC 0.01 10^3/uL Granulocyte % 57.2 % 38-83 Lymphocyte % 28.2 % 25-47 Monocyte % 10.7 % High 1-9 Eosinophil % 3.6 % 0-6 Basophil % 0.3 % 0-2 Nucleated Red Blood Cells % 0.1 Laboratory test finding 08/08/2016 B-Type Natriuretic Peptide BNP 49 pg/mL 4 Lactic Acid 0.7 mmol/L 0.5-2.0 5 Lipid Profile (Trig/Chol/HDL) 06/11/2016 Triglycerides 132 mg/dL 6 Cholesterol 156 mg/dL 7 HDL Cholesterol 50.6 mg/dL 8 LDL Cholesterol 79 mg/dL 9 Comp Metabolic Panel 06/11/2016 Blood Urea Nitrogen 16 mg/dL 6-24 Albumin 4.2 g/dL 3.2-5.2 Total Bilirubin 0.50 mg/dL 0.2-1.0 Sodium 138 mmol/L 133-145 Potassium 3.9 mmol/L 3.5-5.0 Chloride 106 mmol/L 101-111 Co2 Carbon Dioxide 27 mmol/L 22-32 Anion Gap 5 mmol/L 2-11 Glucose 93 mg/dL 70-100 Creatinine 1.15 mg/dL 0.67-1.17 BUN/Creatinine Ratio 13.9 8-20 Calcium 9.4 mg/dL 8.6-10.3 Total Protein 6.8 g/dL 6.4-8.9 Globulin 2.6 g/dL 2-4 Albumin/Globulin Ratio 1.6 1-3 Alkaline Phosphatase 46 U/L 34-104 Alt 20 U/L 7-52 Ast 19 U/L 13-39 Egfr Non- 61.8 >60 Egfr 79.5 >60 10 CBC Auto Diff 06/11/2016 White Blood Count 6.9 10^3/uL 3.5-10.8 Red Blood Count 4.45 10^6/uL 4.0-5.4 Hemoglobin 12.7 g/dL Low 14.0-18.0 Hematocrit 38 % Low 42-52 Mean Corpuscular Volume 87 fL 80-94 Mean Corpuscular Hemoglobin 29 pg 27-31 Mean Corpuscular HGB Conc 33 g/dL 31-36 Red Cell Distribution Width 15 % 10.5-15 Abs Neutrophils 4.4 10^3/uL 1.5-7.7 Abs Lymphocytes 1.6 10^3/uL 1.0-4.8 Abs Monocytes 0.7 10^3/uL 0-0.8 Abs Eosinophils 0.2 10^3/uL 0-0.6 Abs Basophils 0 10^3/uL 0-0.2 Abs Nucleated RBC 0 10^3/uL Granulocyte % 63.1 % 38-83 Lymphocyte % 22.7 % Low 25-47 Monocyte % 10.2 % High 1-9 Eosinophil % 3.5 % 0-6 Basophil % 0.5 % 0-2 Nucleated Red Blood Cells % 0 Platelet Count 119 10^3/uL Low 150-450 Mean Platelet Volume 12 um3 High 7.4-10.4 Laboratory test finding 11/16/2015 PSA Diagnostic 3.966 ng/mL 0-4.0 11 Lipid Profile (Trig/Chol/HDL) 06/07/2015 Triglycerides 125 mg/dL 12 Cholesterol 157 mg/dL 13 HDL Cholesterol 50.1 mg/dL 14 LDL Cholesterol 82 mg/dL 15 Creatinine Clearance 04/17/2015 Creatinine 1.07 mg/dL High 0.51-0.95 Urine Collection Time 24 Urine Total Volume 2550 mL Urine Random Creatinine 60.07 mg/dL Creatinine Clearance 99 mL/min 97-137 Total Protein 24HR Urine 04/17/2015 Urine Collection Time 24 Urine Total Volume 2550 mL Urine Random Total Protein 7 mg/dL Urine Total Protein/24HR 178 mg/24Hr High 0-165 Basic Metabolic Panel 04/17/2015 Sodium 139 mmol/L 133-145 Potassium 4.6 mmol/L 3.5-5.0 Chloride 105 mmol/L 101-111 Co2 Carbon Dioxide 29 mmol/L 22-32 Anion Gap 5 mmol/L 2-11 Glucose 80 mg/dL 70-100 Blood Urea Nitrogen 19 mg/dL 6-24 Creatinine 1.06 mg/dL 0.67-1.17 BUN/Creatinine Ratio 17.9 8-20 Calcium 9.5 mg/dL 8.6-10.3 Egfr Non- 68.1 >60 Egfr 87.6 >60 16 Laboratory test 03/01/2015 Stool For Blood SEE RESULT BELOW 17, 18 finding CBC Auto Diff 11/23/2014 White Blood Count 7.2 10^3/uL 4.8-10.8 Red Blood Count 4.45 10^6/uL 4.0-5.4 Hemoglobin 12.8 g/dL Low 14.0-18.0 Hematocrit 39 % Low 42-52 Mean Corpuscular Volume 87 fL 80-94 Mean Corpuscular Hemoglobin 29 pg 27-31 Mean Corpuscular HGB Conc 33 g/dL 31-36 Red Cell Distribution Width 15 % 10.5-15 Platelet Count 123 10^3/uL Low 150-450 Mean Platelet Volume 11 um3 High 7.4-10.4 Abs Neutrophils 4.4 10^3/uL 1.5-7.7 Abs Lymphocytes 1.9 10^3/uL 1.0-4.8 Abs Monocytes 0.7 10^3/uL 0-0.8 Abs Eosinophils 0.3 10^3/uL 0-0.6 Abs Basophils 0 10^3/uL 0-0.2 Abs Nucleated RBC 0 10^3/uL Granulocyte % 60.8 % 38-83 Lymphocyte % 26.0 % 25-47 Monocyte % 9.2 % High 1-9 Eosinophil % 3.5 % 0-6 Basophil % 0.5 % 0-2 Nucleated Red Blood Cells % 0 Comp Metabolic Panel 11/23/2014 Sodium 137 mmol/L 133-145 Potassium 4.3 mmol/L 3.5-5.0 Chloride 105 mmol/L 101-111 Co2 Carbon Dioxide 27 mmol/L 22-32 Anion Gap 5 mmol/L 2-11 Glucose 86 mg/dL 70-100 Blood Urea Nitrogen 19 mg/dL 6-24 Creatinine 1.07 mg/dL 0.67-1.17 BUN/Creatinine Ratio 17.8 8-20 Calcium 9.0 mg/dL 8.6-10.3 Total Protein 6.8 g/dL 6.4-8.9 Albumin 4.3 g/dL 3.2-5.2 Globulin 2.5 g/dL 2-4 Albumin/Globulin Ratio 1.7 1-3 Total Bilirubin 0.40 mg/dL 0.2-1.0 Alkaline Phosphatase 44 U/L 34-104 Alt 16 U/L 7-52 Ast 19 U/L 13-39 Egfr Non- 67.4 >60 Egfr 86.6 >60 19 Laboratory test finding 11/23/2014 Magnesium 2.0 mg/dL 1.9-2.7 C Reactive Protein 2.95 mg/L < 5.00 20 TSH (Thyroid Stim Horm) 2.19 ?IU/mL 0.34-5.60 Inr/Protime 11/23/2014 Inr 0.93 0.78-1.07 Laboratory test finding 11/23/2014 Partial Thrombo Time 51.2 seconds High 26.0-36.3 PTT Urinalysis Profile 11/23/2014 Urine Color Straw Urine Appearance Clear Urine Specific [place] 1.005 Low 1.010-1.030 Urine pH 7.0 5-9 Urine Urobilinogen Negative Negative Urine Ketones Negative Negative Urine Protein Negative Negative Urine Leukocytes Negative Negative Urine Blood Negative Negative Urine Nitrite Negative Negative Urine Bilirubin Negative Negative Urine Glucose Negative Negative Basic Metabolic Panel 06/08/2014 Sodium 138 mmol/L 133-145 21 Potassium 4.5 mmol/L 3.5-5.0 21 Chloride 104 mmol/L 101-111 21 Co2 Carbon Dioxide 30 mmol/L 22-32 21 Anion Gap 4 mmol/L 2-11 21 Glucose 89 mg/dL 70-100 21 Blood Urea Nitrogen 16 mg/dL 6-24 21 Creatinine 1.13 mg/dL 0.67-1.17 21 BUN/Creatinine Ratio 14.2 8-20 21 Calcium 9.5 mg/dL 8.6-10.3 21 Egfr Non- 63.4 >60 21 Egfr 81.6 >60 21, 22 Lipid Profile (Trig/Chol/HDL) 06/08/2014 Triglycerides 230 mg/dL 21, 23 Cholesterol 231 mg/dL 21, 24 HDL Cholesterol 43.4 mg/dL 21, 25 LDL Cholesterol 142 mg/dL 21, 26 CBC Auto Diff 06/08/2014 White Blood Count 6.6 10^3/uL 4.8-10.8 21 Red Blood Count 4.68 10^6/uL 4.0-5.4 21 Hemoglobin 13.4 g/dL Low 14.0-18.0 21 Hematocrit 41 % Low 42-52 21 Mean Corpuscular Volume 88 fL 80-94 21 Mean Corpuscular Hemoglobin 29 pg 27-31 21 Mean Corpuscular HGB Conc 33 g/dL 31-36 21 Red Cell Distribution Width 15 % 10.5-15 21 Platelet Count 142 10^3/uL Low 150-450 21 Mean Platelet Volume 11 um3 High 7.4-10.4 21 Abs Neutrophils 3.9 10^3/uL 1.5-7.7 21 Abs Lymphocytes 1.8 10^3/uL 1.0-4.8 21 Abs Monocytes 0.6 10^3/uL 0-0.8 21 Abs Eosinophils 0.2 10^3/uL 0-0.6 21 Abs Basophils 0 10^3/uL 0-0.2 21 Abs Nucleated RBC 0 10^3/uL 21 Granulocyte % 59.5 % 38-83 21 Lymphocyte % 26.9 % 25-47 21 Monocyte % 9.4 % High 1-9 21 Eosinophil % 3.6 % 0-6 21 Basophil % 0.6 % 0-2 21 Nucleated Red Blood Cells % 0 21 Laboratory test finding 07/29/2013 PSA Diagnostic 5.379 ng/mL High 0-4.0 27 Comp Metabolic Panel 06/03/2013 Sodium 138 mmol/L 133-145 Potassium 4.4 mmol/L 3.5-5.0 Chloride 102 mmol/L 101-111 Co2 Carbon Dioxide 30.0 mmol/L 22-32 Anion Gap 6.0 mmol/L 2-11 Glucose 90 mg/dL 70-100 Blood Urea Nitrogen 17 mg/dL 6-24 Creatinine 1.10 mg/dL 0.50-1.40 BUN/Creatinine Ratio 15.5 8-20 Calcium 9.6 mg/dL 8.1-9.9 Total Protein 6.6 g/dL 6.2-8.1 Albumin 4.2 g/dL 3.2-5.2 Globulin 2.4 g/dL 2-4 Albumin/Globulin Ratio 1.8 1-3 Total Bilirubin 0.6 mg/dL 0.4-1.5 Alkaline Phosphatase 48 U/L 30-110 Alt 30 U/L 14-54 Ast 25 U/L 12-42 Egfr Non- 65.6 >60 Egfr 84.4 >60 28 Lipid Profile (Trig/Chol/HDL) 06/03/2013 Triglycerides 148 mg/dL 40-200 Cholesterol 173 mg/dL Less than 200 HDL Cholesterol 48 mg/dL 40-60 29 Cholesterol/HDL Ratio 3.6 Average 1-4.44 LDL Cholesterol 95.4 Less Than 100 30 Laboratory test finding 04/13/2013 PSA Diagnostic 5.891 ng/mL High 0- 4.000 31 Surgical Pathology 06/17/2012 S RUN DATE: <SEE NOTE> Lipid Profile 06/02/2012 Triglycerides 151 mg/dL 40-200 (Trig/Chol/HDL) Cholesterol 166 mg/dL Less than 200 HDL Cholesterol 50 mg/dL 40-60 33 Cholesterol/HDL Ratio 3.3 Average 1-4.44 LDL Cholesterol 85.8 mg/dL Less Than 100 34 Comp Metabolic Panel 06/02/2012 Sodium 138 mmol/L 133-145 Potassium 4.0 mmol/L 3.5-5.0 Chloride 106 mmol/L 101-111 Co2 Carbon Dioxide 27.0 mmol/L 22-32 Anion Gap 5.0 mmol/L 2-11 Glucose 89 mg/dL 70-100 Blood Urea Nitrogen 16 mg/dL 6-24 Creatinine 1.10 mg/dL 0.50-1.40 BUN/Creatinine Ratio 14.5 8-20 Calcium 9.3 mg/dL 8.1-9.9 Total Protein 6.0 g/dL Low 6.2-8.1 Albumin 4.1 g/dL 3.2-5.2 Globulin 1.9 g/dL Low 2-4 Albumin/Globulin Ratio 2.2 1-3 Total Bilirubin 0.5 mg/dL 0.4-1.5 Alkaline Phosphatase 54 U/L 30-110 Alt 26 U/L 14-54 Ast 22 U/L 12-42 Egfr Non- 65.8 >60 Egfr 84.6 >60 35 Laboratory test 06/02/2012 Hemoglobin A1c 5.9 % Less than 6.0 36 finding Laboratory test 04/17/2012 Uric Acid 5.3 mg/dL 2.6-7.2 finding Laboratory test 04/17/2012 Erythrocyte Sed Rate 28 mm/Hr 0-40 finding Laboratory test 04/07/2012 PSA Diagnostic 4.10 NG/ML High 0-4.0 37 finding Laboratory test 09/05/2011 PSA,Diagnostic 3.07 NG/ML 0-4 38 finding Lipid Profile 05/30/2011 Triglyceride 138 mg/dL 40-200 (Trig/Chol/HDL) Cholesterol 171 mg/dL Less Than 200 39 High Density Lipoprotein 47 mg/dL 40-60 40 Cholesterol/HDL Ratio 3.64 AVERAGE 1-4.97 Low Density Lipoprotein 96 mg/dL Less Than 100 41 Comp Metabolic Panel 05/30/2011 Sodium 140 mmol/L 135-145 Potassium 4.2 mmol/L 3.5-5.0 Chloride 106 mmol/L 101-111 Co2 (Carbon Dioxide) 28.0 mmol/L 22-32 Anion Gap 6.0 mmol/L 2-11 42 Glucose 98 mg/dL 70-100 BUN 14 mg/dL 6-24 Creatinine 1.0 mg/dL 0.50-1.40 One Over Creatinine 1.00 BUN/Creatinine Ratio 14.0 8-20 Calcium 9.5 mg/dL 8.1-9.9 Total Protein 6.8 GM/DL 6.2-8.1 Albumin 4.2 GM/DL 3.2-5.2 Globulin 2.6 GM/DL 2-4 Albumin/Globulin Ratio 1.6 1-3 Bilirubin Total 0.9 mg/dL 0.4-1.5 43 Alkaline Phosphatase 55 U/L 39-117 Alt (SGPT) 25 U/L 17-63 Ast (Sgot) 23 U/L 12-42 eGFR Non- 73.7 > 60 eGFR 94.7 > 60 44 Laboratory test finding 05/30/2011 CPK (Creatine Kinase) 129 U/L 0-200 Hemoglobin A1c 5.7 % Less Than 6.0 45 Surgical Pathology 03/12/2011 Surgical Pathology <SEE 46 NOTE> Laboratory test 02/13/2011 PSA,Diagnostic 3.89 NG/ML 0-4 47 finding Laboratory test 01/02/2011 Iron Total 121 g/dL 45-182 finding Vitamin B12 And 01/02/2011 Vitamin B12 448 pg/mL 180-914 Folate Serum Folic Acid 16.6 NG/ML High 2-16 Laboratory test finding 01/02/2011 Ferritin 81 NG/ML 24-336 Laboratory test finding 08/14/2010 PSA,Diagnostic 3.48 NG/ML 0-[address] Uribe's Lab Panel 05/01/2010 TSH 2.01 MIU/ML 0.34-5.60 Comp Metabolic Panel 05/01/2010 Sodium 140 mmol/L 135-145 Potassium 4.3 mmol/L 3.5-5.0 Chloride 107 mmol/L 101-111 Co2 (Carbon Dioxide) 27.0 mmol/L 22-32 Anion Gap 6.0 mmol/L 2-11 49 Glucose 104 mg/dL High 70-100 BUN 15 mg/dL 6-24 Creatinine 1.10 mg/dL 0.50-1.40 One Over Creatinine 0.90 BUN/Creatinine Ratio 13.6 8-20 Calcium 9.4 mg/dL 8.1-9.9 Total Protein 6.5 GM/DL 6.2-8.1 Albumin 4.2 GM/DL 3.2-5.2 Globulin 2.3 GM/DL 2-4 Albumin/Globulin Ratio 1.8 1-3 Bilirubin Total 0.9 mg/dL 0.4-1.5 50 Alkaline Phosphatase 62 U/L 39-117 eGFR Non- 70.3 > 60 eGFR 85.1 > 60 51 Lipid Profile (Trig/Chol/HDL) 05/01/2010 Triglyceride 130 mg/dL 40-200 Cholesterol 155 mg/dL Less Than 200 52 High Density Lipoprotein 45 mg/dL 40-60 53 Cholesterol/HDL Ratio 3.44 AVERAGE 1-4.97 Low Density Lipoprotein 84 mg/dL Less Than 100 54 Laboratory test finding 05/01/2010 Ast (Sgot) 26 U/L 12-42 Alt (SGPT) 29 U/L 17-63 CBC With Electronic Diff 05/01/2010 White Blood Count 5.4 CUMM 4.8-10.8 Red Cell Count 4.42 CUMM Low 4.6-6.2 Hemoglobin 13.5 g/dL Low 14.0-18.0 Hematocrit 38 % Low 42-52 Mean Corpuscular Volume 87 um3 80-94 Mean Corpuscular Hemoglob 31 pg 27-31 Mean Corpuscular HGB Cone 35 g/dL 32-36 Redcell Distribution WDTH 14 % 10.5-15 Platelet Count 120 CUMM Low 150-450 Mean Platelet Volume 9.9 um3 7.4-10.4 Gran % 53.7 % 38-83 Lymph % 33.1 % 25-47 Mononuclear % 10.0 % High 1-9 Eosinophil % 3.0 % 0-6 Basophil % 0.2 % 0-2 Abs Lymphs 1.8 1.0-4.8 Abs Mononuclear 0.5 0-0.8 Absolute Neutrophil Count 2.9 1.5-7.7 Abs Eosinophils 0.2 0-0.6 Abs Basophils 0 0-0.2 Laboratory test finding 08/24/2009 PSA,Diagnostic 2.79 NG/ML 0-4 55 Laboratory test finding 06/05/2009 Clotest N^NEGATIVE^TOÑO DR Uirbe's Lab Panel 05/10/2009 TSH 2.51 MIU/ML 0.34-5.60 56 Comp Metabolic Panel 05/10/2009 Sodium 140 mmol/L 135-145 56 Potassium 4.6 mmol/L 3.5-5.0 56 Chloride 106 mmol/L 101-111 56 Co2 (Carbon Dioxide) 29.0 mmol/L 22-32 56 Anion Gap 5.0 mmol/L 2-11 56, 57 Glucose 106 mg/dL High 70-100 56, 58 BUN 12 mg/dL 6-24 56 Creatinine 1.00 mg/dL 0.50-1.40 56 One Over Creatinine 1.00 56 BUN/Creatinine Ratio 12.0 8-20 56 Calcium 9.7 mg/dL 8.1-9.9 56, 59 Total Protein 6.3 GM/DL 6.2-8.1 56 Albumin 4.0 GM/DL 3.2-5.2 56 Globulin 2.3 GM/DL 2-4 56 Albumin/Globulin Ratio 1.7 1-3 56 Bilirubin Total 0.6 mg/dL 0.4-1.5 56, 60 Alkaline Phosphatase 45 U/L 39-117 56 Alt (SGPT) 36 U/L 17-63 56 Ast (Sgot) 27 U/L 12-42 56 eGFR Non- 78.7 > 60 56 eGFR 95.3 > 60 56, 61 Lipid Profile (Trig/Chol/HDL) 05/10/2009 Triglyceride 128 mg/dL 40-200 56 Cholesterol 184 mg/dL Less Than 200 56, 62 High Density Lipoprotein 50 mg/dL 40-60 56, 63 Cholesterol/HDL Ratio 3.68 AVERAGE 1-4.97 56 Low Density Lipoprotein 108 mg/dL High Less Than 100 56, 64 CBC With Electronic Diff 05/10/2009 White Blood Count 7.4 CUMM 4.8-10.8 56 Red Cell Count 4.59 CUMM Low 4.6-6.2 56 Hemoglobin 13.3 g/dL Low 14.0-18.0 56 Hematocrit 40 % Low 42-52 56 Mean Corpuscular Volume 88 um3 80-94 56 Mean Corpuscular Hemoglob 29 pg 27-31 56 Mean Corpuscular HGB Cone 33 g/dL 32-36 56 Redcell Distribution WDTH 15 % 10.5-15 56 Platelet Count 136 CUMM Low 150-450 56 Mean Platelet Volume 11.4 um3 High 7.4-10.4 56 Gran % 62.9 % 38-83 56 Lymph % 25.5 % 25-47 56 Mononuclear % 7.0 % 1-9 56 Eosinophil % 4.3 % 0-6 56 Basophil % 0.3 % 0-2 56 Abs Lymphs 1.9 1.0-4.8 56 Abs Mononuclear 0.5 0-0.8 56 Absolute Neutrophil Count 4.7 1.5-7.7 56 Abs Eosinophils 0.3 0-0.6 56 Abs Basophils 0 0-0.2 56 Laboratory test finding 02/23/2009 PSA,Diagnostic 3.35 NG/ML 0-4 65 Laboratory test finding 06/02/2008 TSH 1.94 MIU/ML 0.34-5.60 66 Lipid Profile (Trig/Chol/HDL) 06/02/2008 Triglyceride 121 mg/dL 40-200 66 Cholesterol 160 mg/dL Less Than 200 66, 67 High Density Lipoprotein 43 mg/dL 40-60 66, 68 Cholesterol/HDL Ratio 3.72 AVERAGE 1-4.97 66 Low Density Lipoprotein 93 mg/dL Less Than 100 66, 69 Comp Metabolic Panel 06/02/2008 Sodium 139 mmol/L 135-145 66 Potassium 5.2 mmol/L High 3.5-5.0 66 Chloride 107 mmol/L 101-111 66 Co2 (Carbon Dioxide) 28.0 mmol/L 22-32 66 Anion Gap 4.0 mmol/L 2-11 66, 70 Glucose 96 mg/dL 70-100 66, 71 BUN 14 mg/dL 6-24 66 Creatinine 1.10 mg/dL 0.50-1.40 66 One Over Creatinine 0.90 66 BUN/Creatinine Ratio 12.7 8-20 66 Calcium 9.3 mg/dL 8.1-9.9 66, 72 Total Protein 6.2 GM/DL 6.2-8.1 66 Albumin 3.8 GM/DL 3.2-5.2 66 Globulin 2.4 GM/DL 2-4 66 Albumin/Globulin Ratio 1.6 1-3 66 Bilirubin Total 0.7 mg/dL 0.4-1.5 66 Alkaline Phosphatase 59 U/L 39-117 66 Alt (SGPT) 25 U/L 17-63 66 Ast (Sgot) 24 U/L 12-42 66 CBC With Electronic Diff 06/02/2008 White Blood Count 6.1 CUMM 4.8-10.8 66 Red Cell Count 4.38 CUMM Low 4.6-6.2 66 Hemoglobin 12.8 g/dL Low 14.0-18.0 66 Hematocrit 38 % Low 42-52 66 Mean Corpuscular Volume 86 um3 80-94 66 Mean Corpuscular Hemoglob 29 pg 27-31 66 Mean Corpuscular HGB Cone 34 g/dL 32-36 66 Redcell Distribution WDTH 14 % 10.5-15 66 Platelet Count 128 CUMM Low 150-450 66 Mean Platelet Volume 11.4 um3 High 7.4-10.4 66 Gran % 60.9 % 38-83 66 Lymph % 21.1 % Low 25-47 66 Mononuclear % 14.2 % High 1-9 66 Eosinophil % 3.5 % 0-6 66 Basophil % 0.3 % 0-2 66 Abs Lymphs 1.3 1.0-4.8 66 Abs Mononuclear 0.9 High 0-0.8 66 Absolute Neutrophil Count 3.7 1.5-7.7 66 Abs Eosinophils 0.2 0-0.6 66 Abs Basophils 0 0-0.2 66 Laboratory test 02/10/2008 PSA,Diagnostic 2.56 NG/ML 0-4 73 finding Laboratory test 08/10/2007 PSA Screening 2.34 NG/ML 0-4 74 finding Surgical Pathology 06/17/2007 Surgical Pathology 75 <SEE NOTE> Laboratory test 06/03/2007 TSH 1.15 MIU/ML 0.34-5.60 76 finding Lipid Profile 06/03/2007 Cholesterol/HDL Ratio 3.69 AVERAGE 1-4.97 76 (Trig/Chol/HDL) Cholesterol 166 mg/dL Less Than 200 76, 77 Triglyceride 135 mg/dL 40-200 76 High Density Lipoprotein 45 mg/dL 40-60 76 Low Density Lipoprotein 94 mg/dL Less Than 100 76, 78 Comp Metabolic Panel 06/03/2007 One Over Creatinine 0.83 76 Anion Gap 7.0 mmol/L 2-11 76, 79 Albumin/Globulin Ratio 1.7 1-3 76 Albumin 4.0 GM/DL 3.2-5.2 76 Alkaline Phosphatase 54 U/L 39-117 76 Alt (SGPT) 27 U/L 17-63 76 Ast (Sgot) 25 U/L 12-42 76 BUN 14 mg/dL 6-24 76 Calcium 9.2 mg/dL 8.7-10.2 76 Chloride 102 mmol/L 101-111 76 Co2 (Carbon Dioxide) 26.0 mmol/L 22-32 76 Globulin 2.4 GM/DL 2-4 76 Glucose 95 mg/dL 70-105 76 Potassium 4.5 mmol/L 3.5-5.0 76 Sodium 135 mmol/L 135-145 76 Bilirubin Total 0.6 mg/dL 0.4-1.5 76 Total Protein 6.4 GM/DL 6.2-8.1 76 BUN/Creatinine Ratio 11.7 8-20 76 Creatinine 1.2 mg/dL 0.5-1.4 76 CBC W/ Electronic Diff 06/03/2007 White Blood Count 7.1 CUMM 4.8-10.8 76 Abs Basophils 0 0-0.2 76 Abs Eosinophils 0.3 0-0.6 76 Absolute Neutrophil Count 4.1 1.5-7.7 76 Abs Lymphs 2.0 1.0-4.8 76 Abs Mononuclear 0.7 0-0.8 76 Basophil % 0.5 % 0-2 76 Hematocrit 40 % Low 42-52 76 Hemoglobin 13.5 g/dL Low 14.0-18.0 76 Eosinophil % 3.9 % 0-6 76 Gran % 57.5 % 38-83 76 Lymph % 28.6 % 20-45 76 Mean Corpuscular HGB Cone 34 g/dL 32-36 76 Mean Corpuscular Hemoglob 29 pg 27-31 76 Mean Corpuscular Volume 87 um3 80-94 76 Mean Platelet Volume 11.8 um3 High 7.4-10.4 76 Mononuclear % 9.5 % High 1-9 76 Platelet Count 163 CUMM 150-450 76 Red Cell Count 4.58 CUMM Low 4.6-6.2 76 Redcell Distribution WDTH 14 % 10.5-15 76 1 Because ethnic data is not always readily available, this report includes an eGFR for both -Americans and non- Americans. The National Kidney Disease Education Program (NKDEP) does not endorse the use of the MDRD equation for patients that are not between the ages of 18 and 70, are , have extremes of body size, muscle mass, or nutritional status, or are non- or non-. According to the National Kidney Foundation, irrespective of diagnosis, the stage of the disease is based on the level of kidney function: Stage Description GFR(mL/min/1.73 m(2)) 1 Kidney damage with normal or decreased GFR 90 2 Kidney damage with mild decrease in GFR 60-89 3 Moderate decrease in GFR 30-59 4 Severe decrease in GFR 15-29 5 Kidney failure <15 (or dialysis) 2 99th percentile=0.04 ng/mL Troponin results at [facility] and [facility] are not interchangeable. 3 Because ethnic data is not always readily available, this report includes an eGFR for both -Americans and non- Americans. The National Kidney Disease Education Program (NKDEP) does not endorse the use of the MDRD equation for patients that are not between the ages of 18 and 70, are , have extremes of body size, muscle mass, or nutritional status, or are non- or non-. According to the National Kidney Foundation, irrespective of diagnosis, the stage of the disease is based on the level of kidney function: Stage Description GFR(mL/min/1.73 m(2)) 1 Kidney damage with normal or decreased GFR 90 2 Kidney damage with mild decrease in GFR 60-89 3 Moderate decrease in GFR 30-59 4 Severe decrease in GFR 15-29 5 Kidney failure <15 (or dialysis) 4 >100 to <200 pg/mL: likely compensated congestive heart failure (CHF) 200 to 400 pg/mL: likely moderate CHF >400 pg/mL: likely moderate to severe CHF 5 [place] Severe Sepsis and Septic Shock Management Bundle Measure requires all lactic acids initially measuring >2.0 mmol/L be repeated. 6 Desirable <150 Borderline high 150-199 High 200-499 Very High >500 7 Desirable <200 Borderline high 200-239 High >239 8 Low <40 Desirable: 40-60 High: >60 9 Desirable: <100 mg/dL Near Optimal: 100-129 mg/dL Borderline High: 130-159 mg/dL High: 160-189 mg/dL Very High: >189 mg/dL 10 Because ethnic data is not always readily available, this report includes an eGFR for both -Americans and non- Americans. The National Kidney Disease Education Program (NKDEP) does not endorse the use of the MDRD equation for patients that are not between the ages of 18 and 70, are , have extremes of body size, muscle mass, or nutritional status, or are non- or non-. According to the National Kidney Foundation, irrespective of diagnosis, the stage of the disease is based on the level of kidney function: Stage Description GFR(mL/min/1.73 m(2)) 1 Kidney damage with normal or decreased GFR 90 2 Kidney damage with mild decrease in GFR 60-89 3 Moderate decrease in GFR 30-59 4 Severe decrease in GFR 15-29 5 Kidney failure <15 (or dialysis) 11 Serum levels of PSA measured using the [email or web address] DXI Hybritech immunoassay should not be interpreted as absolute evidence of the presence or absence of disease. The PSA value should be used in conjunction with other pertinent clinical diagnostic procedures. The values obtained with different assay methods or kits cannot be used interchangeably. 12 Desirable <150 Borderline high 150-199 High 200-499 Very High >500 13 Desirable <200 Borderline high 200-239 High >239 14 Low <40 Desirable: 40-60 High: >60 15 Desirable: <100 mg/dL Near Optimal: 100-129 mg/dL Borderline High: 130-159 mg/dL High: 160-189 mg/dL Very High: >189 mg/dL 16 Because ethnic data is not always readily available, this report includes an eGFR for both -Americans and non- Americans. The National Kidney Disease Education Program (NKDEP) does not endorse the use of the MDRD equation for patients that are not between the ages of 18 and 70, are , have extremes of body size, muscle mass, or nutritional status, or are non- or non-. According to the National Kidney Foundation, irrespective of diagnosis, the stage of the disease is based on the level of kidney function: Stage Description GFR(mL/min/1.73 m(2)) 1 Kidney damage with normal or decreased GFR 90 2 Kidney damage with mild decrease in GFR 60-89 3 Moderate decrease in GFR 30-59 4 Severe decrease in GFR 15-29 5 Kidney failure <15 (or dialysis) 17 Copy Result to: KEM HSU ([id number]) 18 SEE RESULT BELOW Name: CORBIN MILLAN : [address]: Cinda Leigh MD Acct: [id number] Unit: [id number] AGE: 74 Location: [facility] Re03/01/15 SEX: M Status: REG REF SPEC: [id number] JANET: 03/01/[address]: Cinda Leigh MD REQ: [id number] RECD: 03/01/15 STATUS: [facility] DR: Kem Uribe III, MD _ SOURCE: STOOL SPDESC: ORDERED: Hemoccult COMMENTS: Copy Result to: KEM HSU ([id number]) Procedure Result Verified Site Stool Occult Blood Final 03/01/15- 2124 ML Stool Occult Blood Negative * ML - [facility] . END OF REPORT * ML=Testing performed at Main Lab DEPARTMENT OF PATHOLOGY, [address] [place] [address] Justice Dunlap M.D. Director [facility] # [id number] 19 Because ethnic data is not always readily available, this report includes an eGFR for both -Americans and non- Americans. The National Kidney Disease Education Program (NKDEP) does not endorse the use of the MDRD equation for patients that are not between the ages of 18 and 70, are , have extremes of body size, muscle mass, or nutritional status, or are non- or non-. According to the National Kidney Foundation, irrespective of diagnosis, the stage of the disease is based on the level of kidney function: Stage Description GFR(mL/min/1.73 m(2)) 1 Kidney damage with normal or decreased GFR 90 2 Kidney damage with mild decrease in GFR 60-89 3 Moderate decrease in GFR 30-59 4 Severe decrease in GFR 15-29 5 Kidney failure <15 (or dialysis) 20 Acute inflammation: >10.00 21 PATIENT IS FASTING 22 Because ethnic data is not always readily available, this report includes an eGFR for both -Americans and non- Americans. The National Kidney Disease Education Program (NKDEP) does not endorse the use of the MDRD equation for patients that are not between the ages of 18 and 70, are , have extremes of body size, muscle mass, or nutritional status, or are non- or non-. According to the National Kidney Foundation, irrespective of diagnosis, the stage of the disease is based on the level of kidney function: Stage Description GFR(mL/min/1.73 m(2)) 1 Kidney damage with normal or decreased GFR 90 2 Kidney damage with mild decrease in GFR 60-89 3 Moderate decrease in GFR 30-59 4 Severe decrease in GFR 15-29 5 Kidney failure <15 (or dialysis) 23 Desirable <150 Borderline high 150-199 High 200-499 Very High >500 24 Desirable <200 Borderline high 200-239 High >239 25 Low <40 Desirable: 40-60 High: >60 26 Desirable <100 Near Optimal 100-129 Borderline high 130-159 High 160-189 Very High >189 27 Serum levels of PSA measured using the [email or web address] DXI Hybritech immunoassay should not be interpreted as absolute evidence of the presence or absence of disease. The PSA value should be used in conjunction with other pertinent clinical diagnostic procedures. The values obtained with different assay methods or kits cannot be used interchangeably. 28 Because ethnic data is not always readily available, this report includes an eGFR for both -Americans and non- Americans. The National Kidney Disease Education Program (NKDEP) does not endorse the use of the MDRD equation for patients that are not between the ages of 18 and 70, are , have extremes of body size, muscle mass, or nutritional status, or are non- or non-. According to the National Kidney Foundation, irrespective of diagnosis, the stage of the disease is based on the level of kidney function: Stage Description GFR(mL/min/1.73 m(2)) 1 Kidney damage with normal or decreased GFR 90 2 Kidney damage with mild decrease in GFR 60-89 3 Moderate decrease in GFR 30-59 4 Severe decrease in GFR 15-29 5 Kidney failure <15 (or dialysis) 29 HDL Interpretation: Undesirable: High Risk: Less than 40 mg/dL Desirable: Low Risk: Greater than 60 mg/dL 30 LDL Interpretation: Low Risk Optimal Level: LDL Less than 100 mg/dL Near or Above Optimal: LDL 100-129 mg/dL Borderline High Risk: LDL 130-159 mg/dL High Risk: LDL 160-189 mg/dL Very High Risk: LDL Greater than 189 mg/dL 31 Serum levels of PSA measured using the [email or web address] DXI Hybritech immunoassay should not be interpreted as absolute evidence of the presence or absence of disease. The PSA value should be used in conjunction with other pertinent clinical diagnostic procedures. The values obtained with different assay methods or kits cannot be used interchangeably. 32 RUN DATE: 06/18/12 [facility] LAB LIVE PAGE 1 RUN TIME: [address] [place] [id number] Specimen Inquiry Name: CORBIN MILLAN : [address]: Kem Hsu MD Acct: [id number] Unit: [id number] AGE: 71 Location: ENDO Re06/17/12 SEX: M Status: REG REF SPEC: [id number] JANET: 06/17/12- SUBM DR: Kem Hsu MD REQ: [id number] RECD: 06/17/12 STATUS: ROXY CASTELLANOS DR: Ye Uribe III, MD _ ORDERED: LEVEL IV FINAL DIAGNOSIS Colon, 40.0 cm., biopsy: A. Tubular adenoma. B. No high grade dysplasia or malignancy. CLINICAL HISTORY History of colon polyps in 2007. Colonoscopy into cecum, prep fair. Two small polyps removed with jumbo biopsy forceps. Diffuse diverticulosis. GROSS DESCRIPTION The specimen is received in formalin labeled Corbin Barber Ken, Colon Polyp at 40.0 cm. and consists of multiple, gonzalez, soft tissue fragments measuring 0.7 x 0.4 x 0.2 cm. in aggregate. Submitted entirely, one cassette. Signed (signature on file) Justice Dunlap MD 1522 END OF REPORT * ML=Testing performed at Main Lab DEPARTMENT OF PATHOLOGY, [address] [place] [address] Justice Dunlap M.D. Director [facility] Permit #[id number] HDL Interpretation: Undesirable: High Risk: Less than 40 MG/DL Desirable: Low Risk: Greater than 60 MG/DL 34 LDL Interpretation: Low Risk Optimal Level: LDL Less than 100 MG/DL Near or Above Optimal: LDL 100-129 MG/DL Borderline High Risk: LDL 130-159 MG/DL High Risk: LDL 160-189 MG/DL Very High Risk: LDL Greater than 189 MG/DL 35 Because ethnic data is not always readily available, this report includes an eGFR for both -Americans and non- Americans. The National Kidney Disease Education Program (NKDEP) does not endorse the use of the MDRD equation for patients that are not between the ages of 18 and 70, are , have extremes of body size, muscle mass, or nutritional status, or are non- or non-. According to the National Kidney Foundation, irrespective of diagnosis, the stage of the disease is based on the level of kidney function: Stage Description GFR(mL/min/1.73 m(2)) 1 Kidney damage with normal or decreased GFR 90 2 Kidney damage with mild decrease in GFR 60-89 3 Moderate decrease in GFR 30-59 4 Severe decrease in GFR 15-29 5 Kidney failure <15 (or dialysis) 36 Therapeutic target for the treatment of diabetes Mellitus patients is <7% HBA1C, and in selective patients <6.0%.Please refer to [place] [employer] Diabetic care guidelines for further information. 37 Serum levels of PSA measured using the [employer] D[employer] Hybritech immunoassay should not be interpreted as absolute evidence of the presence or absence of disease. The PSA value should be used in conjunction with other pertinent clinical diagnostic procedures. The values obtained with different assay methods or kits cannot be used interchangeably. 38 * SERUM LEVELS OF PSA MEASURED USING THE [employer] ACCESS HYBRITECH IMMUNOASSAY SHOULD NOT BE INTERPRETED ABSOLUTE EVIDENCE OF THE PRESENCE OR ABSENCE OF DISEASE. THE PSA VALUE SHOULD BE USED IN CONJUNCTION WITH OTHER PERTINENT CLINICAL DIAGNOSTIC PROCEDURES. The values obtained with different assay methods or kits cannot be used interchangeably. 39 CHOLESTEROL INTERPRETATION: Desirable: Less than 200 MG/DL Borderline-High Risk: 200-239 MG/DL High-Risk: 240 MG/DL and over 40 HDL INTERPRETATION: Undesirable: High Risk: Less than 40 MG/DL Desirable: Low Risk: Greater than 60 MG/DL 41 LDL INTERPRETATION: Low Risk Optimal Level: LDL Less than 100 MG/DL Near or Above Optimal: LDL 100-129 MG/DL Borderline High Risk: LDL 130-159 MG/DL High Risk: LDL 160-189 MG/DL Very High Risk: LDL Greater than 189 MG/DL 42 Anion gap measurement may be of limited value in the presence of any alkalosis, especially in a combined acid base disorder. . 43 A metabolite of Naproxen, O-desmethylnaproxen, has been shown to interfere with the Jendrluciaik-Jeff method for measuring total bilirubin. Samples from patients who have taken Naproxen have shown spurious elevation in total bilirubin levels. 44 Because ethnic data is not always readily available, this report includes an eGFR for both -Americans and non- Americans. The National Kidney Disease Education Program (NKDEP) does not endorse the use of the MDRD equation for patients that are not between the ages of 18 and 70, are , have extremes of body size, muscle mass, or nutritional status, or are non- or non-. According to the National Kidney Foundation, irrespective of diagnosis, the stage of the disease is based on the level of kidney function: Stage Description GFR(mL/min/1.73 m(2)) 1 Kidney damage with normal or decreased GFR 90 2 Kidney damage with mild decrease in GFR 60-89 3 Moderate decrease in GFR 30-59 4 Severe decrease in GFR 15-29 5 Kidney failure <15 (or dialysis) 45 THERAPEUTIC TARGET FOR THE TREATMENT OF DIABETES MELLITUS PATIENTS IS <7% HBA1C, AND IN SELECTIVE PATIENTS <6.0%. PLEASE REFER TO [place] [employer] DIABETIC CARE GUIDELINES FOR FURTHER INFORMATION. 46 ---- RUN DATE: 03/14/11 [facility] NMI LIVE PAGE 1 RUN TIME: 1250 Specimen Inquiry RUN USER: INTERFACE -- Name: CORBIN MILLAN Status: REG REF Re03/12/11 Age/Sex: 70/M Unit#: [id number] Location: [facility] : 39 -- Specimen: [id number] [facility] Spec Date: 03/12/[address]: Deondre Martínez i, MD Spec Type: SURGICAL P Received: 03/13/11 Copies to: Ye Uribe III, MD SPECIMEN 1) LEFT LOBE PROSTATE BIOPSY APEX (APEX 3) 2) LEFT LOBE PROSTATE BIOPSY BASE (BASE 3) 3) RIGHT LOBE PROSTATE BIOPSY APEX (APEX 3) 4) RIGHT LOBE PROSTATE BIOPSY BASE (BASE 3) HISTORY PRE-OP DIAGNOSIS: Prostate nodule right lobe, PSA 3.89 CLINICAL INFORMATION: Biopsy 07/15 - benign prostatic hypertrophy, prostat itis GROSS DESCRIPTION 1) The specimen is received in formalin labelled Corbin Millan, Left Prostate Lobe [place] and consists of three, gonzalez, soft tissue cores measuring 1.7 cm., 1.5 cm., and 1.2 x 0.1 cm. Submitted entirely, one cassette. 2) The specimen is received in formalin labelled Corbin Millan, Left Prostate Lobe [place] and consists of three, gonzalez, soft tissue cores measuring 1.6 cm., 1.2 cm., and 1.4 x 0.1 cm. Submitted entirely, one cassette. 3) The specimen is received in formalin labelled Corbin Millan, Right Prostate Lobe [place] and consists of three, gonzalez, soft tissue cores measuring 1.7 cm., 1.5 cm., and 1.4 x 0.1 cm. Submitted entirely, one cassette. 4) The specimen is received in formalin labelled Corbin Millan, Right Prostate Lobe Base and consists of three, gonzalez, soft tissue cores measuring 1.5 cm., 1.5 cm., and 1.5 x 0.1 cm. Submitted entirely, one cassette. DIAGNOSIS 1) Prostate, left apex, core biopsies: A. Benign prostate tissue. B. No evidence of neoplasia identified. 2) Prostate, left base, core biopsies: A. Benign prostate tissue with partial atrophy and chronic inflammation. B. No evidence of neoplasia identified. -- DEPARTMENT OF PATHOLOGY, [address] [place] [address] [facility] Permit #[id number] Jin Britton M.D. Hydrator Operator Dir ambar -- -- RUN DATE: 03/14/11 [facility] NMI LIVE PAGE 2 RUN TIME: 1250 Specimen Inquiry RUN USER: INTERFACE -- Name: CORBIN MILLAN Status: REG REF Re03/12/11 Age/Sex: 70/M Unit#: [id number] Location: [facility] : 39 -- -- CONTINUED -- DIAGNOSIS (Continued) 3) Prostate, right apex, core biopsies: A. Benign prostate tissue with partial atrophy and chronic inflammation. B. No evidence of neoplasia identified. 4) Prostate, right base, core biopsies: A. Benign prostate tissue with partial atrophy and chronic inflammation. B. No evidence of neoplasia identified. Signed Electronically by: JUSTICE DUNLAP MD 03/14/11 1247 -- -- DEPARTMENT OF PATHOLOGY, [address] [place] [id number] [facility] Permit #[id number] Justice Dunlap M.D. Director Brayden Moore M.D. Hydrator Operator ambar -- 47 * SERUM LEVELS OF PSA MEASURED USING THE HENRY Herrenschmiede ACCESS HYBRITECH IMMUNOASSAY SHOULD NOT BE INTERPRETED ABSOLUTE EVIDENCE OF THE PRESENCE OR ABSENCE OF DISEASE. THE PSA VALUE SHOULD BE USED IN CONJUNCTION WITH OTHER PERTINENT CLINICAL DIAGNOSTIC PROCEDURES. 48 * SERUM LEVELS OF PSA MEASURED USING THE HENRY [place]UTH ACCESS HYBRITECH IMMUNOASSAY SHOULD NOT BE INTERPRETED ABSOLUTE EVIDENCE OF THE PRESENCE OR ABSENCE OF DISEASE. THE PSA VALUE SHOULD BE USED IN CONJUNCTION WITH OTHER PERTINENT CLINICAL DIAGNOSTIC PROCEDURES. 49 Anion gap measurement may be of limited value in the presence of any alkalosis, especially in a combined acid base disorder. . 50 A metabolite of Naproxen, O-desmethylnaproxen, has been shown to interfere with the Jendrassik-Hassell method for measuring total bilirubin. Samples from patients who have taken Naproxen have shown spurious elevation in total bilirubin levels. 51 Because ethnic data is not always readily available, this report includes an eGFR for both -Americans and non- Americans. The National Kidney Disease Education Program (NKDEP) does not endorse the use of the MDRD equation for patients that are not between the ages of 18 and 70, are , have extremes of body size, muscle mass, or nutritional status, or are non- or non-. According to the National Kidney Foundation, irrespective of diagnosis, the stage of the disease is based on the level of kidney function: Stage Description GFR(mL/min/1.73 m(2)) 1 Kidney damage with normal or decreased GFR 90 2 Kidney damage with mild decrease in GFR 60-89 3 Moderate decrease in GFR 30-59 4 Severe decrease in GFR 15-29 5 Kidney failure <15 (or dialysis) 52 CHOLESTEROL INTERPRETATION: Desirable: Less than 200 MG/DL Borderline-High Risk: 200-239 MG/DL High-Risk: 240 MG/DL and over 53 HDL INTERPRETATION: Undesirable: High Risk: Less than 40 MG/DL Desirable: Low Risk: Greater than 60 MG/DL 54 LDL INTERPRETATION: Low Risk Optimal Level: LDL Less than 100 MG/DL Near or Above Optimal: LDL 100-129 MG/DL Borderline High Risk: LDL 130-159 MG/DL High Risk: LDL 160-189 MG/DL Very High Risk: LDL Greater than 189 MG/DL 55 * SERUM LEVELS OF PSA MEASURED USING THE [employer] [place] ACCESS HYBRITECH IMMUNOASSAY SHOULD NOT BE INTERPRETED ABSOLUTE EVIDENCE OF THE PRESENCE OR ABSENCE OF DISEASE. THE PSA VALUE SHOULD BE USED IN CONJUNCTION WITH OTHER PERTINENT CLINICAL DIAGNOSTIC PROCEDURES. 56 PATIENT MAY HAVE RESULTS PER DOCTOR'S AUTHORIZATION. Questions regarding this report should be directed to your doctor. FASTING 57 Anion gap measurement may be of limited value in the presence of any alkalosis, especially in a combined acid base disorder. . 58 Note change in reference range as of 12/31/07. The change was based on recommendations from the [place] [employer]. 59 Please note change in reference range effective 07 . 60 A metabolite of Naproxen, O-desmethylnaproxen, has been shown to interfere with the Jendrassik-Hassell method for measuring total bilirubin. Samples from patients who have taken Naproxen have shown spurious elevation in total bilirubin levels. 61 Because ethnic data is not always readily available, this report includes an eGFR for both -Americans and non- Americans. The National Kidney Disease Education Program (NKDEP) does not endorse the use of the MDRD equation for patients that are not between the ages of 18 and 70, are , have extremes of body size, muscle mass, or nutritional status, or are non- or non-. According to the National Kidney Foundation, irrespective of diagnosis, the stage of the disease is based on the level of kidney function: Stage Description GFR(mL/min/1.73 m(2)) 1 Kidney damage with normal or decreased GFR 90 2 Kidney damage with mild decrease in GFR 60-89 3 Moderate decrease in GFR 30-59 4 Severe decrease in GFR 15-29 5 Kidney failure <15 (or dialysis) 62 CHOLESTEROL INTERPRETATION: Desirable: Less than 200 MG/DL Borderline-High Risk: 200-239 MG/DL High-Risk: 240 MG/DL and over 63 HDL INTERPRETATION: Undesirable: High Risk: Less than 40 MG/DL Desirable: Low Risk: Greater than 60 MG/DL 64 LDL INTERPRETATION: Low Risk Optimal Level: LDL Less than 100 MG/DL Near or Above Optimal: LDL 100-129 MG/DL Borderline High Risk: LDL 130-159 MG/DL High Risk: LDL 160-189 MG/DL Very High Risk: LDL Greater than 189 MG/DL 65 * SERUM LEVELS OF PSA MEASURED USING THE [employer] [place] ACCESS HYBRITECH IMMUNOASSAY SHOULD NOT BE INTERPRETED ABSOLUTE EVIDENCE OF THE PRESENCE OR ABSENCE OF DISEASE. THE PSA VALUE SHOULD BE USED IN CONJUNCTION WITH OTHER PERTINENT CLINICAL DIAGNOSTIC PROCEDURES. 66 PATIENT MAY HAVE RESULTS PER DOCTOR'S AUTHORIZATION. Questions regarding this report should be directed to your doctor. FASTING 67 CHOLESTEROL INTERPRETATION: Desirable: Less than 200 MG/DL Borderline-High Risk: 200-239 MG/DL High-Risk: 240 MG/DL and over 68 HDL INTERPRETATION: Undesirable: High Risk: Less than 40 MG/DL Desirable: Low Risk: Greater than 60 MG/DL 69 LDL INTERPRETATION: Low Risk Optimal Level: LDL Less than 100 MG/DL Near or Above Optimal: LDL 100-129 MG/DL Borderline High Risk: LDL 130-159 MG/DL High Risk: LDL 160-189 MG/DL Very High Risk: LDL Greater than 189 MG/DL 70 Anion gap measurement may be of limited value in the presence of any alkalosis, especially in a combined acid base disorder. . 71 Note change in reference range as of 12/31/07. The change was based on recommendations from the [place] [employer]. 72 Please note change in reference range effective 07 . 73 * SERUM LEVELS OF PSA MEASURED USING THE [employer] [place] ACCESS HYBRITECH IMMUNOASSAY SHOULD NOT BE INTERPRETED ABSOLUTE EVIDENCE OF THE PRESENCE OR ABSENCE OF DISEASE. THE PSA VALUE SHOULD BE USED IN CONJUNCTION WITH OTHER PERTINENT CLINICAL DIAGNOSTIC PROCEDURES. 74 * SERUM LEVELS OF PSA MEASURED USING THE H[employer]RY [employer]ren[employer]ied[employer] ACCESS HYBRITECH IMMUNOASSAY SHOULD NOT BE INTERPRETED ABSOLUTE EVIDENCE OF THE PRESENCE OR ABSENCE OF DISEASE. THE PSA VALUE SHOULD BE USED IN CONJUNCTION WITH OTHER PERTINENT CLINICAL DIAGNOSTIC PROCEDURES. 75 ---- RUN DATE: 06/18/07 [facility] NMI LIVE PAGE 1 RUN TIME: 1628 Specimen Inquiry RUN USER: INTERFACE [id number] CORBIN MILLAN 66/M <REG REF 06/17> ([id number]) KENYA Hsu MD, Kem Balderrama -- Specimen: [id number] SOUT Spec Date: 06/17/[address] [facility] [address]: Kem burch MD Spec Type: SURGICAL P Received: 06/17/07-0301 Copies to: Ye Uribe III, MD SPECIMEN 1) RIGHT COLON BIOPSY 2) TRANSVERSE COLON BIOPSY 3) COLON BIOPSY AT 20 CM. 4) COLON BIOPSY AT 35 CM. HISTORY POST-OP DIAGNOSIS: Scattered small polyps CLINICAL INFORMATION: Patient with history of tubular adenoma (2001) GROSS DESCRIPTION 1) The specimen is received in formalin labelled Corbin Millan, Right Colon, and consists of multiple, gonzalez, soft tissue fragments measuring 0.6 x 0.3 x 0.2 cm. Submitted entirely, one cassette. 2) The specimen is received in formalin labelled Corbin Millan, Transverse Colon, and consists of two, gonzalez, soft tissue fragments measuring 0.6 x 0.3 x 0.2 cm. Submitted entirely, one cassette. 3) The specimen is received in formalin labelled Corbin Millan, 20 cm. Colon Biopsy, and consists of multiple, gonzalez, soft tissue fragments measuring 0.9 x 0.7 x 0.2 cm. in aggregate. Submitted entirely, one cassette. 4) The specimen is received in formalin labelled Corbin P. Feeny, 35 cm. Colon Biopsy, and consists of two, gonzalez, soft tissue fragments measuring 1.0 x 0.3 x 0.2 cm. Submitted entirely, one cassette. DIAGNOSIS 1) Colon, right, biopsy - Large intestinal mucosa with increased lamina propria lymphoplasmacytic infiltrate with eosinophils and focal acute cryptitis (see comment). 2) Colon, transverse, biopsy - Hyperplastic polyp. 3) Colon, 20 cm., biopsy - A) Tubular adenoma. B) No high grade dysplasia or malignancy. C) Hyperplastic polyps. 4) Colon, 35 cm., biopsy - -- DEPARTMENT OF PATHOLOGY, [address] [place] [address] [facility] Permit #[id number] Justice Dunlap M.D. Director of Laboratories -- -- RUN DATE: 06/18/07 [facility] NMI LIVE PAGE 2 RUN TIME: 1628 Specimen Inquiry RUN USER: INTERFACE -- SPEC #: [id number] PATIENT: CORBIN MILLAN P #[id number] (Continued) -- DIAGNOSIS (Continued) Hyperplastic polyp. COMMENT The findings in Part 1 are nonspecific and may represent an inflammatory hypertension polyp or a focal acute insult. Signed Electronically by: JUSTICE DUNLAP MD 06/18/07 1628 -- -- DEPARTMENT OF PATHOLOGY, [address] [place] [address] [facility] Permit #[id number] Justice Dunlap M.D. Director of [employer] -- 76 PATIENT MAY HAVE RESULTS PER DOCTOR'S AUTHORIZATION. Questions regarding this report should be directed to your doctor. 77 Classification: Desirable . 78 CALCULATED LDL APPROXIMATES THE VALUE OF A DIRECT LDL MEASUREMENT. Classification: Optimal Level . 79 Anion gap measurement may be of limited value in the presence of any alkalosis, especially in a combined acid base disorder. . Procedures Date CPT Code Description Status 12/05/2016 37230 EKG Tracing & Interpretation Completed 10/01/2016 35653 EKG Tracing & Interpretation Completed 08/15/2016 76378 Carotid Doppler,Bilateral Completed 08/15/2016 44772 EKG Tracing & Interpretation Completed 06/12/2016 65110 Polysomnography Sleep Staging 4+ Parameters Completed 09/18/2015 06931 EKG Tracing & Interpretation Completed 03/09/2015 78950 Treadmill Interp/Report Only Completed 03/09/2015 25879 Stress Test Supervsn W/Out I/R Completed 03/08/2015 96587 Event Monitor/Phys Review/Interp. Completed 03/08/2015 14348 Cardiac Event Monitor/Recording Completed 03/03/2015 32537 Holter Monitoring 24 HR New Completed 12/19/2014 85534 EKG Tracing & Interpretation Completed 11/24/2014 00663 ECHO Transthorasic Realtime 2D W Doppler & Color Completed [facility] 08/16/2014 28278 Polysomnography Sleep Staging 4+ Parameters Completed 12/13/2013 18382 Holter Monitoring 24 HR New Completed 06/17/2012 Colonoscopy Completed 06/07/2012 68545 Treadmill Interp/Report Only Completed 06/07/2012 14554 Stress Test Supervsn W/Out I/R Completed 06/07/2012 26571 EKG, Interpretation Only Completed 06/07/2012 12746 EKG, Interpretation Only Completed 04/17/2012 Diabetic Foot Exam Completed 12/25/2011 32115 Polysomnography Sleep Staging 4+ Parameters Completed 07/08/2011 27127 Holter Monitor Review (24 hr)dr mich murray Completed only 05/29/2011 46740 Holter Monitor Review (24 hr)dr mich murray Completed only 05/22/2011 44072 Noninvasive Ear Or Pulse Oximetry For Oxygen Saturation Completed 04/25/2010 90165 EKG Tracing & Interpretation Completed 06/05/2009 Colonoscopy Completed 06/07/2008 92335 EKG Tracing & Interpretation Completed 06/17/2007 Colonoscopy Completed Encounters Type Date Location Provider CPT E/M Dx Office Visit 04/16/2017 [facility] Internal Medicine Ye Uribe, 46270 J06.9 1:00p - Jean Abdi Office Visit 01/06/2017 [facility] [place] Jenise Yañ[place] [address] G47.33 2:30p Services Of [facility] Office Visit 12/05/2016 [facility] Internal Medicine Ye Uribe, 73194 Z01.818 11:20a - Jean Abdi N32.9 I10 E78.00 R00.2 G47.33 J18.9 Office Visit 11/25/2016 2:20p [facility] Internal Ana Uribe 50123 J18.9 - Jean Abdi Office Visit 10/24/2016 2:20p [facility] Internal Medicine Ye Uribe, 70778 L98.9 - Jean Abdi Office Visit 10/14/2016 11:40a [facility] Internal Medicine Ye Uribe, 27799 I10 - Jean Abdi G47.33 E78.00 R00.2 G45.3 F17.201 Office Visit 10/01/2016 9:45a [facility] Hesham Leigh M.D. 09204 G45.3 [facility] G45.9 R00.2 I65.23 I10 G47.33 R91.8 Q21.1 Office Visit 08/15/2016 1:45p [facility] Hesham Leigh M.D. 78053 G45.9 [facility] G45.3 R00.2 I65.23 I10 E78.00 Q21.1 Office Visit 08/12/2016 11:40a [facility] Internal Medicine - Ye Uribe, 92749 R00.2 Jean Abdi Office Visit 08/08/2016 4:40p [facility] Internal Medicine - Mathieu Barnett, 41734 R07.9 Tburg Morales Abdi Office Visit 07/09/2016 11:45a [facility] [place] Jenise Yañ[place] [address] G47.33 Services Of [facility] Office Visit 06/06/2016 2:30p Pulmonology [place] Jenise Yañ[place] [address] G47.9 Services Of [facility] Office Visit 05/22/2016 1:00p [facility] Internal Medicine - Ye Uribe, 29184 G47.9 Jean bAdi Office Visit 03/21/2016 2:15p [facility] Of Cinda Leigh M.D. 72069 R00.2 [facility] G45.9 Q21.1 G47.33 E78.00 Office Visit 01/08/2016 2:45p [facility] [place] Jenise Yañ[place] [address] G47.9 Services [facility] Office Visit 12/20/2015 10:00a [facility] Internal Medicine - Ye Uribe, 75456 I10 Lázaro Abdi F17.201 Office Visit 11/09/2015 4:00p [facility] Internal Medicine - Ye Uribe, 85410 R07.0 Lázaro Abdi Office Visit 09/18/2015 3:00p [facility] Of Cinda Leigh M.D. 68160 R00.2 [facility] G45.9 Q21.1 G47.33 Office Visit 08/31/2015 2:30p [facility] Viv Moerl, 54431 R00.2 Services Of [facility] Amarilys.DMaddison I67.9 G47.61 Office Visit 08/08/2015 10:00a [facility] Internal Medicine - Ye Uribe, 07827 R00.2 Lázaro Abdi Office Visit 06/15/2015 2:45p [facility] Viv Morel, 12484 R00.2 Services Of [facility] M.D. G47.61 I67.9 Office Visit 04/24/2015 3:40p [facility] Internal Medicine Ye Uribe, 44170 R09.82 - Lázaro Abdi Office Visit 03/27/2015 2:00p [facility] Of Cinda Leigh M.D. 70085 R00.2 [facility] Q21.8 G45.9 R07.89 I10 E78.5 Office Visit 02/24/2015 1:45p [facility] Of Cinda Leigh M.D. 46442 Q21.8 [facility] G45.9 R07.89 R61 G47.33 K92.1 R00.2 Q21.1 Office Visit 02/09/2015 2:00p [facility] Internal Medicine Ye Uribe, 32349 Q21.1 Lázaro Abdi Office Visit 12/27/2014 9:40a [facility] Internal Medicine Ye Uribe, 07379 745.5 Lázaro Abdi Office Visit 12/19/2014 2:00p [facility] Of Cinda Leigh M.D. 22626 435.9 [facility] 745.5 401.1 272.4 785.1 Office Visit 12/14/2014 9:40a [facility] Internal Medicine Ye Uribe, 69264 796.2 - Lázaro Abdi Office Visit 11/28/2014 11:00a [facility] Internal Medicine Ye Uribe, 60242 435.9 - Lázaro Abdi 796.2 Office Visit 11/24/2014 3:40p [facility] Kallie [place], 15030 362.34 MMaddisonDMaddison 401.9 272.4 Office Visit 11/24/2014 10:38a [facility], Lilibeth Puckett, N.P. 54072 796.2 Hospitalists 530.81 272.4 362.34 Office Visit 11/23/2014 10:37a [facility] [place], [address] 530.81 Assoc, Hospitalists M.DMaddison 362.34 796.2 272.4 Office Visit 09/22/2014 11:20a [facility] Internal Medicine Ye Soto 44635 780.57 Lázaro Uribe M.D. Office Visit 09/15/2014 9:30a [facility] Jenise Pari, 46578 780.54 Services Of [facility] Office Visit 06/23/2014 9:45a [facility] Viv Mancera 39269 780.59 Jin Morel 781.0 Office Visit 06/02/2014 1:30p [facility] [place] Jenise Yañ[place] [address] 780.59 Services Of [facility] 530.81 Office Visit 05/31/2014 10:00a [facility] Internal Medicine Ye Uribe, 14484 785.1 - [place] Jin 272.0 790.21 285.9 Office Visit 05/03/2014 10:00a [facility] Internal Medicine Ye Uribe, 64994 465.9 - [place] Jin 785.1 Office Visit 03/15/2014 9:40a [facility] Internal Medicine Kaleigh Uribe, 59931 780.57 [place] M.D. Office Visit 01/03/2014 10:20a [facility] Internal Medicine Ye Uribe, 97900 785.1 [place] M.D. Office Visit 12/02/2013 9:00a [facility] Internal Medicine Kaleigh Uribe, 75569 780.57 [place] M.DMaddison Office Visit 08/12/2013 11:20a [facility] Internal Medicine Kaleigh Uribe, 68439 272.0 [place] M.D. Office Visit 03/11/2013 10:40a [facility] Internal Medicine Kaleigh Uribe, 35010 719.46 [place] M.D. Office Visit 07/07/2012 11:00a [facility] Internal Medicine Kaleigh Uribe, 67334 785.1 [place] M.D. Office Visit 06/07/2012 11:16a [facility], Lilibeth Puckett, N.P. 42467 786.51 Hospitalists 401.9 272.2 Office Visit 01/01/2012 11:28a Jazlyn Hobson, 71586 327.23 [facility] M.DMaddison Office Visit 12/04/2011 1:20p [facility] Internal Medicine Ye Uribe, 60470 401.1 - [place] Jin 272.0 780.57 Office Visit 06/05/2011 1:20p [facility], 25524 V70.0 - [place] Amarilys.Rosy 401.1 272.0 790.21 787.3 785.1 Office Visit 05/22/2011 10:40a [facility], 25190 785.1 - [place] Jin 787.3 796.2 Office Visit 01/02/2011 2:00p DO Not Use [facility] At [facility], 03913 796.2 [facility].DMaddison 272.0 790.21 Office Visit 09/25/2010 10:30a DO Not Use [facility] At [facility], N.P. 69415 719.47 [facility] Office Visit 07/05/2010 10:40a DO Not Use [facility] At [facility], 40734 796.2 [facility].Rosy Office Visit 06/06/2010 11:00a DO Not Use [facility] At [facility], 49373 V70.0 [facility].Rosy 530.11 272.0 790.21 796.2 Office Visit 04/25/2010 1:00p DO Not Use [facility] At [facility], 84040 785.1 [facility].DMaddison 272.0 796.2 Office Visit 01/26/2010 11:00a DO Not Use [facility] At [facility], 86905 709.9 [facility].Rosy Office Visit 11/23/2009 2:40p DO Not Use [facility] At [facility], 84537 845.19 [facility] M.DMaddison 844.9 Office Visit 05/17/2009 9:00a DO Not Use [facility] At [facility], 67564 V70.0 [facility].DMaddison v70.3 Office Visit 06/07/2008 9:30a [facility] At [facility], 05013 272.0 [facility] M.DMaddison V70.0 Office Visit 02/10/2008 11:15a [facility], 38076 719.41 [facility] M.Rosy V04.81 Office Visit 06/08/2007 9:30a [facility] At Ye Uribe, 62648 V70.0 [facility] Jin Plan of Care Future Appointment(s):12/15/2017 2:20 pm - Ye Uribe M.D. at [facility] Internal Medicine - Yqdsberib32/05/2018 - Jenise Yañez MDG47.33 Obstructive sleep apnea (adult) (pediatric)Follow up:PRNE66.09 Other obesity due to excess calories
[2017-07-24 20:55] LABS: Hematocrit 37 % (42-52); Hemoglobin 12.6 g/dl (14.0-18.0); Mean Corpuscular HGB Conc 34 g/dl (31-36); Mean Corpuscular Hemoglobin 29 pg (27-31); Mean Corpuscular Volume 85 fL (80-94); Mean Platelet Volume 11 um3 (7.4-10.4); Platelet Count 120 10^3/ul (150-450); Red Blood Count 4.37 10^6/ul (4.0-5.4); Red Cell Distribution Width 15 % (10.5-15); White Blood Count 7.1 10^3/ul (3.5-10.8)
[2017-07-24 21:06] LABS: INR 0.98 (0.77-1.02)
[2017-07-24 21:07] LABS: ABS Basophils 0 10^3/ul (0-0.2); ABS Eosinophils 0.3 10^3/ul (0-0.6); ABS Monocytes 0.7 10^3/ul (0-0.8); ABS Nucleated RBC 0 10^3/ul; Eosinophil % 4.3 % (0-6); Lymphocyte % 28.8 % (25-47); Nucleated Red Blood Cells % 0
[2017-07-24 21:15] LABS: EGFR Non-African American 65.4 (>60)
[2017-07-24 22:56] LABS: Urine Appearance Cloudy; Urine Blood 3+ (Negative); Urine Color Yellow; Urine Ketones Negative (Negative); Urine Protein Negative (Negative); Urine Specific Gravity 1.009 (1.010-1.030); Urine Urobilinogen Negative (Negative)
--- NOTE | 2017-07-24 23:25 | RAD ---
INDICATION: Hematuria. COMPARISON: Comparison is made with a prior CT of the chest from June 07, 2012. TECHNIQUE: A CT scan of the abdomen and pelvis was performed without intravenous or oral contrast. Contiguous axial sections were obtained from the lung bases through the symphysis pubis. Images were reconstructed in the coronal and sagittal planes. FINDINGS: The lung bases are clear. No pleural effusion is present. The liver and spleen are normal in size without significant focal abnormality on this noncontrast study. There appears to be calcification within the wall of the neck of the gallbladder which is unchanged from the prior CT study. The adrenal glands and kidneys are normal in size. No renal calculi are seen. There is a fluid density area in the midportion of the right kidney measuring 1.6 cm in size likely representing a cyst on this noncontrast study. No hydronephrosis is seen. No ureteral or bladder calculi are noted. The prostate gland is enlarged measuring 5.2 cm in diameter. The urinary bladder is nondistended and there appears be diffuse bladder wall thickening. The aorta is normal in caliber with moderate calcific plaque present. No significant enlarged retroperitoneal lymph nodes are seen. The stomach, small and large bowel appear nondistended. There are diverticuli scattered throughout the colon. There is no evidence for diverticulitis or colitis. No free intraperitoneal air or fluid is seen. No significant focal osseous abnormality is seen. IMPRESSION: 1. NO EVIDENCE FOR ACUTE FINDING. 2. ENLARGED PROSTATE GLAND AND USE DIFFUSE BLADDER WALL THICKENING LIKELY SECONDARY TO INCOMPLETE DISTENTION AND OUTLET OBSTRUCTION. IF THE PATIENT'S SYMPTOMS PERSIST RECOMMEND AN OUTPATIENT CT UROGRAM. 3. THERE IS CALCIFICATION WHICH APPEARS TO BE IN THE WALL OF THE GALLBLADDER SUGGESTIVE OF A PORCELAIN GALLBLADDER WHICH IS UNCHANGED FROM THE PRIOR STUDY FROM 2012.
[2017-07-25 01:21] VITALS: BP 130/83
--- NOTE | 2017-07-25 15:12 | ED ---
Sonya Merlos Gabriel, scribed for Adrian Sneed MD on 07/24/17 at 2252 . GI/ HPI - HPI Summary HPI Summary: This patient is a 77 year old M presenting to [facility] accompanied by his with a chief complaint of intermittent hematuria since this morning. Pt has had three episodes ranging from flank blood to blood tinged urine. Pt denies ABD pain, urinary frequency or urgency. pt states similar episode in the past secondary to anticoagulant use. - History of Current Complaint Chief Complaint: EDUrogenitalProblems Time Seen by Provider: 07/24/17 22:27 Stated Complaint: BLOOD IN URINE Hx Obtained From: Patient Onset/Duration: Still Present Timing: Constant Severity: Moderate Current Severity: Moderate Pain Intensity: 0 Associated Signs and Symptoms: Positive: Negative - pain - Allergy/Home Medications Allergies/Adverse Reactions: Allergies Allergy/AdvReac Type Severity Reaction Status Date / Time No Known Allergies Allergy Verified 12/18/16 06:45 PMH/Surg Hx/FS Hx/Imm Hx Endocrine/Hematology History: Reports: Hx Anemia Denies: Hx Diabetes Cardiovascular History: Reports: Hx Angina - heaviness, Hx Hypercholesterolemia , Hx Hypertension, Other Cardiovascular Problems/Disorders - Atrial septal defect Denies: Hx Congestive Heart Failure, Hx Pacemaker/ICD Respiratory History: Reports: Hx Sleep Apnea, Other Respiratory Problems/ Disorders - recent pneumonia diagnosis november 2016, finished all tx Denies: Hx Asthma GI History: Reports: Hx Gastroesophageal Reflux Disease, Hx Hiatal Hernia History: Reports: Hx Benign Prostatic Hyperplasia, Other Problems/ Disorders - BPH, bladder lesions Denies: Hx Dialysis, Hx Renal Disease Musculoskeletal History: Reports: Hx Arthritis, Hx Bursitis, Hx Gout, Hx Orthopedic Injury - left elbow fracture as teen., Hx Tendonitis, Other Musculoskeletal History - reports occas gout, no med Sensory History: Reports: Hx Contacts or Glasses - reading, Hx Hearing Aid - x2 , Hx Hearing Problem Opthamlomology History: Reports: Hx Contacts or Glasses - reading Neurological History: Reports: Hx Migraine, Other Neuro Impairments/Disorders - 2014 - reports TIA, many tests, found atrial septal defect at this time Psychiatric History: Reports: Hx Anxiety - hx of, no meds, Hx Depression - hx of , no meds Denies: Hx Panic Disorder - Surgical History Surgery Procedure, Year, and Place: Tonsils, appendectomy Hx Anesthesia Reactions: No Infectious Disease History: No Infectious Disease History: Denies: History Other Infectious Disease, Traveled Outside the [place] in Last 30 Days - Family History Known Family History: Positive: None, Cardiac Disease - Social History Alcohol Use: None Alcohol Amount: 1 glass wine /day Substance Use Type: Reports: None Smoking Status (MU): Former Smoker Type: Cigarettes, Pipe Amount Used/How Often: 2/3 ppd - for 25 yrs, also used a pipe Length of Time of Smoking/Using Tobacco: pipe for 25 years25 year cigarettes (10 -20) per day Have You Smoked in the Last Year: No Review of Systems Negative: Abdominal Pain Positive: hematuria Neurological: Negative - pain All Other Systems Reviewed And Are Negative: Yes Physical Exam - Summary Physical Exam Summary: Appearance: Well-appearing, no distress, Well-nourished Skin: Warm, color reflects adequate perfusion Head: Normal Head/Face inspection Eyes: Conjunctiva clear ENT: Normal inspection Neck: Supple, no nodes, no JVD. Respiratory: Lungs clear, Normal breath sounds, no respiratory distress Cardio: RRR, No murmur, pulses normal, brisk capillary refill Abdomen: soft, nontender, no guarding, no rebound; no flank pain Bowel sounds: present Musculoskeletal: motor grossly intact. Neuro: Alert,speech normal, sensory/motor intact Psychological: Normal, cooperative Triage Information Reviewed: Yes Vital Signs On Initial Exam: Initial Vitals Temp Pulse Resp BP Pulse Ox 97.8 F 65 16 148/73 97 07/24/17 18:37 07/24/17 18:37 07/24/17 18:37 07/24/17 18:37 07/24/17 18:37 Vital Signs Reviewed: Yes Diagnostics - Vital Signs Vital Signs Temp Pulse Resp BP Pulse Ox 07/24/17 20:45 97.6 F 54 16 159/77 99 07/24/17 18:37 97.8 F 65 16 148/73 97 - Laboratory Lab Results: Lab Results 07/24/17 07/24/17 07/24/17 Range/Units 20:42 20:42 20:42 WBC 7.1 (3.5-10.8) 10^3/ul RBC 4.37 (4.0-5.4) 10^6/ul Hgb 12.6 L (14.0-18.0) g/dl Hct 37 L (42-52) % MCV 85 (80-94) fL MCH 29 (27-31) pg MCHC 34 (31-36) g/dl RDW 15 (10.5-15) % Plt Count 120 L (150-450) 10^3/ul MPV 11 H (7.4-10.4) um3 Neut % (Auto) 56.6 (38-83) % Lymph % (Auto) 28.8 (25-47) % [place] % (Auto) 9.9 H (0-7) % Eos % (Auto) 4.3 (0-6) % Baso % (Auto) 0.4 (0-2) % Absolute Neuts (auto) 4.0 (1.5-7.7) 10^3/ul Absolute Lymphs (auto) 2.0 (1.0-4.8) 10^3/ul Absolute Monos (auto) 0.7 (0-0.8) 10^3/ul Absolute Eos (auto) 0.3 (0-0.6) 10^3/ul Absolute Basos (auto) 0 (0-0.2) 10^3/ul Absolute Nucleated RBC 0 10^3/ul Nucleated RBC % 0 INR (Anticoag Therapy) 0.98 (0.77-1.02) APTT 52.9 H (26.0-36.3) seconds Sodium 139 (133-145) mmol/L Potassium 4.3 (3.5-5.0) mmol/L Chloride 104 (101-111) mmol/L Carbon Dioxide 30 (22-32) mmol/L Anion Gap 5 (2-11) mmol/L BUN 20 (6-24) mg/dL Creatinine 1.09 (0.67-1.17) mg/dL Est GFR ( Amer) 84.1 (>60) Est GFR (Non-Af Amer) 65.4 (>60) BUN/Creatinine Ratio 18.3 (8-20) Glucose 99 (70-100) mg/dL Calcium 9.8 (8.6-10.3) mg/dL Total Bilirubin 0.30 (0.2-1.0) mg/dL AST 19 (13-39) U/L ALT 21 (7-52) U/L Alkaline Phosphatase 41 (34-104) U/L Total Protein 7.3 (6.4-8.9) g/dL Albumin 4.5 (3.2-5.2) g/dL Globulin 2.8 (2-4) g/dL Albumin/Globulin Ratio 1.6 (1-3) Result Diagrams: 07/24/17 20:42 07/24/17 20:42 Lab Statement: Any lab studies that have been ordered have been reviewed, and results considered in the medical decision making process. - CT CT ABD/Pelvis CT Interpretation Completed By: Radiologist - 1. NO EVIDENCE FOR ACUTE FINDING. 2. ENLARGED PROSTATE GLAND AND USE DIFFUSE BLADDER WALL THICKENING LIKELY SECONDARY TO INCOMPLETE DISTENTION AND OUTLET OBSTRUCTION. IF THE PATIENT'S SYMPTOMS PERSIST RECOMMEND AN OUTPATIENT CT UROGRAM. 3. THERE IS CALCIFICATION WHICH APPEARS TO BE IN THE WALL OF THE GALLBLADDER SUGGESTIVE OF A [place] GALLBLADDER WHICH IS UNCHANGED FROM THE PRIOR STUDY FROM 2013. ED physician has reviewed this radiology report. Re-Evaluation - Re-Evaluation First Eval Re-Evaluation Time: 01:01 Change: Improved - Pt resting comfortably in bed. pt with mild blood tinged urine. Pt with negative CT abd/pel. Spoke with Urology, with plan for f/u in clinic in 1-2 days for repeat evaluation. GIGU Course/Dx - Course Assessment/Plan: Pt with hematuria likely secondary to Xarelto use. Plan to hold Xarelto x 2 days with f/u in the Urology clinic for further evaluation. - Diagnoses Differential Diagnoses - Male: Abdominal Trauma, Bladder Dysfunction, Blood Dyscrasia, Prostatitis, Urinary Tract Infection Provider Diagnoses: Hematuria - Physician Notifications Discussed Care Of Patient With: Caleb Rodriguez Time Discussed With Above Provider: 00:52 Instructed by Provider To: Other - Dr. Rodriguez states there is nothing that can be done for him in the ED but he will follow up with the patient. Additionally he suggested that he should stop taking the xarelto for 2 days. Discharge - Discharge Plan Condition: Improved Disposition: HOME Patient Education Materials: Hematuria (ED) Referrals: Ye Uribe MD [Primary Care Provider] - Deondre Ospina MD [Medical Doctor] - 2 Days The documentation as recorded by the Sonya bo Gabriel accurately reflects the service I personally performed and the decisions made by , Adrian Sneed MD.
== END 2017-07-25 01:21 | disposition home or self-care (01) ==
LOC: ED 18:21
DX: R31.9 Hematuria, unspecified (principal); Z87.891 Personal history of nicotine dependence
CPT/HCPCS: 36415; 74176; 80053; 81003; 81015; 85025; 85610; 85730; 87086; 99282

== ENCOUNTER 2018-01-14 17:46 | Emergency (ER) | payer MEDICARE, BC, OTHER ==
--- OUTSIDE RECORDS SUMMARY | 2018-01-14 18:04 | XMS REPORT ---
:1940 External Reference #:[id number] Author Organization [facility] Address [address] [place] [address] [place] [address] Phone [phone] Care Team Providers Name Role Phone Pamela Uribe III, MD Primary Care Physician Unavailable Payers Type Date Identification Numbers Payment Provider Subscriber Medicare Primary Effective: Policy Number: Medicare Corbin Millan 2009 [id number] PayID: [id number] [address] [place] [address] Medigap Part B Policy Number: [id number] [facility] Corbin Millan PayID: [id number] [address] [place] [address] Advance Directives Type Date Description Status Comment Other Directive 12/13/2014 Health Care Proxy Current and Verified Problems Date Description Provider Status Onset: 11/23/2009 Shoulder joint pain Pamela Uribe M.D. Active Onset: 11/23/2009 Peptic reflux disease Mathieu Barnett M.D. Active Onset: 01/02/2011 Pure hypercholesterolemia Pamela Uribe M.D. Active Onset: 01/02/2011 Impaired fasting glycaemia Pamela Uribe M.D. Active Onset: 06/05/2011 Benign essential hypertension Pamela Uribe M.D. Active Onset: 06/05/2011 Flatulence, eructation and gas pain Pamela Uribe M.D. Active Onset: 06/05/2011 Palpitations Pamela Uribe M.D. Active Onset: 06/08/2012 Obstructive sleep apnea syndrome Pamela Uribe M.D. Active Onset: 06/08/2012 Benign localized hyperplasia of Pamela Uribe M.D. Active prostate Onset: 06/02/2014 Dyssomnia Jenise Yañez MD Active Onset: 06/02/2014 Gastroesophageal reflux disease Jenise Yañez MD Active Onset: 12/19/2014 Transient cerebral ischemia Cnida Leigh M.D. 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 Active without outflow obstruction Onset: 08/15/2016 Carotid artery occlusion Cinda Leigh M.D. Active Onset: 10/01/2016 Amaurosis fugax Cinda Leigh M.D. Active Onset: 11/23/2009 Mixed hyperlipidemia Pamela Uribe M.D. Inactive Inactive: 08/11/2017 Family History Date Family Member(s) Problem(s) Comments Father Lung Cancer Father due to Cancer () - former smoker, at age 85 Mother at age 87 of a heart attack First Sister Sleep Apnea Social History Type Date Description Comments Marital Status Lives With Occupation Retired [employer] Cigarette Use Former Cigarette Smoker [...] Form Strength Qnty SIG Indications Ordering Provider Mucinex 08/11/ Active Tablets ER 600mg 20tabs twice a Davian 2017 12HR day as D. Justin, needed M.D.,FACP Ventolin HFA 08/11/ Active Aerosol 108(90Base 18unit 2 puffs by Elzbieta Alaniz 2017 ) mcg/Act s mouth four D. Turon, times a M.D.,FACP day as needed Metoprolol 10/28/ Active Tablets ER 25mg 30tabs 1 by mouth Cinda Succinate ER 2014 24HR every day Reese, MMaddisonD. Amlodipine / Active Tablets 5mg 30tabs take one Cinda Besylate 0000 tablet by Bergland, mouth M.D. every day Ranitidine HCL / Active Tablets 300mg 1 by mouth Unknown 0000 every day Gas-X Extra / Active Chewtabs 125mg 1 after Unknown Strength 0000 dinner prn Finasteride / Active Tablets 5mg 1 by mouth Unknown 0000 every day Atorvastatin / Active Tablets 10mg 90tabs Take One Pamela Soto Calcium 0000 Tablet By Jojo, Mouth M.D. Every Day Eliquis / Active Tablets 5mg 180tab 1 by mouth Cinda 0000 s twice a [place], M.D. Bactrim 12/05/ Hx Tablets 10tabs 1 tab by Pamela Soto 2017 - mouth Jojo, 01/05/ twice a M.D. 2017 day x 5 days Klonopin 06/15/ Hx Tablets 1mg 30tabs Not Taking R00.2 Viv Mancera 2016 - Stackman, 09/30/ M.D. 2017 Xarelto 01/03/ Hx Tablets 20mg 90tabs 1 by mouth Cinda 2014 - every day Reese, 07/28/ as M.D. 2018 directed Gas-X Extra 05/22/ Hx Capsules 125mg 1 tab po Pamela Soto Strength 2011 - pradelso Uribe, M.D. 2014 Nicorelief 05/22/ Hx Gum 2mg 120uni qid savana Soto 2011 - ts Jojo, M.D. 2013 Malarone 05/29/ Hx Tablets 300mg 12tabs i po q1w, Pamela Soto 2009 - 1-2 weeks Jojo, 11/23/ before M.DMaddison 2009 travel, once a week while there, /q1w for 4 weeks after returning Protonix 05/17/ Hx Solution 40mg 90unit 1 po qd 530.81 Pamela Soto 2009 - Rec s Jojo, M.D. 2009 Protonix 05/17/ Hx Tablets DR 40mg 90tabs 1 po qd 530.81 Pamela Soto 2009 - Jojo, 11/23/ Jin 2009 Tums /00/ Hx Chewtabs 500mg 1 prn Guera 0000 - MD Satya 2007 Glucosamine /00/ Hx Tablets 500mg. 1 PO every Other Sulfate 0000 - third day Physician 2014 Aspirin 00/00/ Hx Tablets DR 81mg 1 tab po Unknown 0000 - qd 2014 Lipitor /00/ Hx Tablets 20mg 90tabs Stopped Pamela Soto 0000 - 2-3 weeks Jojo, . Jin 2013 Take 1/2 Tablet By Mouth AT Bedtime Ibuprofen /00/ Hx Tablets 200mg 100tab 1 tab po Unknown 0000 - s prn 2014 Econazole 00/ Hx Cream 1% 30g topical Unknown Nitrate 0000 - bid max 4 2013 Prilosec 00/00/ Hx 1 tab po Unknown 0000 - daily prn 2014 Nicorette 00/ Hx Gum 2mg 1 gum 3-4 Unknown 0000 - times 11/28/ daily as 2015 needed. Aspirin 00/00/ Hx Tablets DR 81mg 1 by mouth Unknown 0000 - every day 2014 Medications Administered in Office Medication Date Status Form Strength Qnty SIG Indications Ordering Provider Influenza Administered Injection Unknown Virus Vaccine 015 Influenza Administered Injection Unknown Virus Vaccine 014 Influenza Administered Injection Unknown Virus Vaccine 013 Immunizations CPT Code Status Date Vaccine Lot # [id number] Given 02/13/2017 Influenza Virus Vaccine, Quadrivalent, Split, Preservative Free 54924 Given 02/22/2016 Influenza Virus Vaccine, Quadrivalent, Split Virus, [place] Use 24265 Given 06/13/2015 Tdap - Tetanus/Diptheria/Acellular Pertussis [id number] Given 06/10/2014 Pneumococcal Conjugate Vaccine 13 Valent For [id number] Intramuscular Use 38060 Given 07/06/2012 Zoster (Zostavax) 84430 Given 07/06/2012 Zoster (Zostavax) [id number] 56928 Given 02/10/2008 Influenza Virus 3Yrs & Over [id number] 42668 Given 05/16/2005 Td (History By Patient) 55866 Given 04/09/2004 Pneumovax (History By Patient) [id number] Vital Signs Date Vital Result Comment 12/17/2017 Height 68 inches 5'8" Weight 201.00 lb Heart Rate 64 /min BP Systolic 130 mmHg BP Diastolic 70 mmHg O2 % BldC Oximetry 96 % BMI (Body Mass Index) 30.6 kg/m2 08/11/2017 Weight 204.00 lb Heart Rate 76 /min BP Systolic Sitting 122 mmHg BP Diastolic Sitting 70 mmHg Body Temperature 97.9 F O2 % BldC Oximetry 97 % 08/07/2017 Height 67 inches 5'7" Weight 205.00 lb with shoes Heart Rate 76 /min BP Systolic Sitting 158 mmHg Lue reg cuff BP Diastolic Sitting 60 mmHg Lue reg cuff BP Systolic Standing 128 mmHg Lue LG Cuff BP Diastolic Standing 74 mmHg Lue LG Cuff BP Systolic Recheck 122 mmHg Lue lg cuff BP Diastolic Recheck 72 mmHg Lue lg cuff Respiratory Rate 16 /min BMI (Body Mass Index) 32.1 kg/m2 Ejection Fraction 55-60% date 11/24/14 ECHO 07/14/2017 Height 67 inches 5'7" Weight 200.00 [...] Test Date Test Result H/L Range Note Laboratory test finding 08/26/2017 Ast (Sgot) 18 U/L 13-39 1 Creatine Kinase(CK) 102 U/L 10-223 2 Lipid Profile (Trig/Chol/HDL) 08/26/2017 Triglycerides 138 mg/dL 3 Cholesterol 146 mg/dL 4 HDL Cholesterol 48.8 mg/dL 5 LDL Cholesterol 70 mg/dL 6 Basic Metabolic Panel 08/12/2017 Sodium 140 mmol/L 139-145 Potassium 4.8 mmol/L 3.5-5.0 Chloride 105 mmol/L 101-111 Co2 Carbon Dioxide 30 mmol/L 22-32 Anion Gap 5 mmol/L 2-11 Glucose 100 mg/dL 70-100 Blood Urea Nitrogen 23 mg/dL 6-24 Creatinine 1.33 mg/dL High 0.67-1.17 BUN/Creatinine Ratio 17.3 8-20 Calcium 9.3 mg/dL 8.6-10.3 Egfr Non- 52.0 >60 Egfr 66.9 >60 7 Laboratory test finding 08/12/2017 PSA Screening 2.439 ng/mL 0-4.0 8 Laboratory test finding 07/29/2017 Surgical Pathology SEE RESULT BELOW 9 CBC Auto Diff 07/24/2017 White Blood Count 7.1 10^3/uL 3.5-10.8 10 Red Blood Count 4.37 10^6/uL 4.0-5.4 10 Hemoglobin 12.6 g/dL Low 14.0-18.0 10 Hematocrit 37 % Low 42-52 10 Mean Corpuscular Volume 85 fL 80-94 10 Mean Corpuscular Hemoglobin 29 pg 27-31 10 Mean Corpuscular HGB Conc 34 g/dL 31-36 10 Red Cell Distribution Width 15 % 10.5-15 10 Platelet Count 120 10^3/uL Low 150-450 10 Mean Platelet Volume 11 um3 High 7.4-10.4 10 Abs Neutrophils 4.0 10^3/uL 1.5-7.7 10 Abs Lymphocytes 2.0 10^3/uL 1.0-4.8 10 Abs Monocytes 0.7 10^3/uL 0-0.8 10 Abs Eosinophils 0.3 10^3/uL 0-0.6 10 Abs Basophils 0 10^3/uL 0-0.2 10 Abs Nucleated RBC 0 10^3/uL 10 Granulocyte % 56.6 % 38-83 10 Lymphocyte % 28.8 % 25-47 10 Monocyte % 9.9 % High 0-7 10 Eosinophil % 4.3 % 0-6 10 Basophil % 0.4 % 0-2 10 Nucleated Red Blood Cells % 0 10 Laboratory test finding 07/24/2017 Partial Thrombo Time 52.9 seconds High 26.0-36.3 10 PTT Inr/Protime 07/24/2017 Inr 0.98 0.77-1.02 10 Comp Metabolic Panel 07/24/2017 Sodium 139 mmol/L 133-145 10 Potassium 4.3 mmol/L 3.5-5.0 10 Chloride 104 mmol/L 101-111 10 Co2 Carbon Dioxide 30 mmol/L 22-32 10 Anion Gap 5 mmol/L 2-11 10 Glucose 99 mg/dL 70-100 10 Blood Urea Nitrogen 20 mg/dL 6-24 10 Creatinine 1.09 mg/dL 0.67-1.17 10 BUN/Creatinine Ratio 18.3 8-20 10 Calcium 9.8 mg/dL 8.6-10.3 10 Total Protein 7.3 g/dL 6.4-8.9 10 Albumin 4.5 g/dL 3.2-5.2 10 Globulin 2.8 g/dL 2-4 10 Albumin/Globulin Ratio 1.6 1-3 10 Total Bilirubin 0.30 mg/dL 0.2-1.0 10 Alkaline Phosphatase 41 U/L 34-104 10 Alt 21 U/L 7-52 10 Ast 19 U/L 13-39 10 Egfr Non- 65.4 >60 10 Egfr 84.1 >60 10, 11 Urine Culture And Sensitivities 07/24/2017 Urine Culture SEE RESULT BELOW 12 Urinalysis Profile 07/24/2017 Urine Color Yellow Urine Appearance Cloudy Urine Specific [place] 1.009 Low 1.010-1.030 Urine pH 6.0 5-9 Urine Urobilinogen Negative Negative Urine Ketones Negative Negative Urine Protein Negative Negative Urine Leukocytes Negative Negative Urine Blood 3+ Negative Urine Nitrite Negative Negative Urine Bilirubin Negative Negative Urine Glucose Negative Negative Urine White Blood Cell 2+(11-20/hpf) Absent Urine Red Blood Cell 3+(>10/hpf) Absent Urine Bacteria Absent Absent Order 12/05/2016 EKG given to Creatinine 10/01/2016 Creatinine 1.14 mg/dL 0.67-1.17 Egfr Non- 62.3 >60 Egfr 80.1 >60 13 Laboratory test finding 10/01/2016 Blood Urea Nitrogen BUN 19 mg/dL 6-24 Laboratory test finding 08/08/2016 Troponin-I (TnI) 0.01 ng/mL <0.04 14 Comp Metabolic Panel 08/08/2016 Sodium 138 mmol/L 133-145 Potassium 4.2 mmol/L 3.5-5.0 Chloride 104 mmol/L 101-111 Co2 Carbon Dioxide 30 mmol/L 22-32 Anion Gap 4 mmol/L 2-11 Glucose 103 mg/dL High 70-100 Blood Urea Nitrogen 19 mg/dL 6-24 Creatinine 1.13 mg/dL 0.67-1.17 BUN/Creatinine Ratio 16.8 8-20 Calcium 9.7 mg/dL 8.6-10.3 Total Protein 7.4 g/dL 6.4-8.9 Albumin 4.5 g/dL 3.2-5.2 Globulin 2.9 g/dL 2-4 Albumin/Globulin Ratio 1.6 1-3 Total Bilirubin 0.40 mg/dL 0.2-1.0 Alkaline Phosphatase 50 U/L 34-104 Alt 26 U/L 7-52 Ast 21 U/L 13-39 Egfr Non- 62.9 >60 Egfr 80.9 >60 15 Inr/Protime 08/08/2016 Inr 1.04 0.89-1.11 CBC Auto [...] 08/08/2016 B-Type Natriuretic Peptide BNP 49 pg/mL 16 Lactic Acid 0.7 mmol/L 0.5-2.0 17 CBC Auto Diff 06/11/2016 White Blood Count [...] Mean Platelet Volume 12 um3 High 7.4-10.4 Comp Metabolic Panel 06/11/2016 Blood Urea Nitrogen [...] Egfr Non- 61.8 >60 Egfr 79.5 >60 18 Lipid Profile (Trig/Chol/HDL) 06/11/2016 Triglycerides 132 mg/dL 19 Cholesterol 156 mg/dL 20 HDL Cholesterol 50.6 mg/dL 21 LDL Cholesterol 79 mg/dL 22 Laboratory test finding 11/16/2015 PSA Diagnostic 3.966 ng/mL 0-4.0 23 Lipid Profile (Trig/Chol/HDL) 06/07/2015 Triglycerides 125 mg/dL 24 Cholesterol 157 mg/dL 25 HDL Cholesterol 50.1 mg/dL 26 LDL Cholesterol 82 mg/dL 27 Creatinine Clearance 04/17/2015 Creatinine 1.07 mg/dL High [...] Egfr Non- 68.1 >60 Egfr 87.6 >60 28 Laboratory test 03/01/2015 Stool For Blood SEE RESULT BELOW 29, 30 finding CBC Auto Diff 11/23/2014 White Blood [...] Egfr Non- 67.4 >60 Egfr 86.6 >60 31 Laboratory test finding 11/23/2014 Magnesium 2.0 mg/dL 1.9-2.7 C Reactive Protein 2.95 mg/L < 5.00 32 TSH (Thyroid Stim Horm) 2.19 ?IU/mL 0.34-5.60 Inr/Protime 11/23/2014 Inr 0.93 0.78-1.07 Laboratory test finding 11/23/2014 Partial Thrombo Time 51.2 seconds High 26.0-36.3 PTT Urinalysis Profile 11/23/2014 Urine Color Straw Urine Appearance Clear Urine Specific [place] 1.005 Low 1.010-1.030 Urine pH 7.0 5-9 Urine Urobilinogen Negative Negative Urine Ketones Negative Negative Urine Protein Negative Negative Urine Leukocytes Negative Negative Urine Blood Negative Negative Urine Nitrite Negative Negative Urine Bilirubin Negative Negative Urine Glucose Negative Negative Basic Metabolic Panel 06/08/2014 Sodium 138 mmol/L 133-145 33 Potassium 4.5 mmol/L 3.5-5.0 33 Chloride 104 mmol/L 101-111 33 Co2 Carbon Dioxide 30 mmol/L 22-32 33 Anion Gap 4 mmol/L 2-11 33 Glucose 89 mg/dL 70-100 33 Blood Urea Nitrogen 16 mg/dL 6-24 33 Creatinine 1.13 mg/dL 0.67-1.17 33 BUN/Creatinine Ratio 14.2 8-20 33 Calcium 9.5 mg/dL 8.6-10.3 33 Egfr Non- 63.4 >60 33 Egfr 81.6 >60 33, 34 Lipid Profile (Trig/Chol/HDL) 06/08/2014 Triglycerides 230 mg/dL 33, 35 Cholesterol 231 mg/dL 33, 36 HDL Cholesterol 43.4 mg/dL 33, 37 LDL Cholesterol 142 mg/dL 33, 38 CBC Auto Diff 06/08/2014 White Blood Count 6.6 10^3/uL 4.8-10.8 33 Red Blood Count 4.68 10^6/uL 4.0-5.4 33 Hemoglobin 13.4 g/dL Low 14.0-18.0 33 Hematocrit 41 % Low 42-52 33 Mean Corpuscular Volume 88 fL 80-94 33 Mean Corpuscular Hemoglobin 29 pg 27-31 33 Mean Corpuscular HGB Conc 33 g/dL 31-36 33 Red Cell Distribution Width 15 % 10.5-15 33 Platelet Count 142 10^3/uL Low 150-450 33 Mean Platelet Volume 11 um3 High 7.4-10.4 33 Abs Neutrophils 3.9 10^3/uL 1.5-7.7 33 Abs Lymphocytes 1.8 10^3/uL 1.0-4.8 33 Abs Monocytes 0.6 10^3/uL 0-0.8 33 Abs Eosinophils 0.2 10^3/uL 0-0.6 33 Abs Basophils 0 10^3/uL 0-0.2 33 Abs Nucleated RBC 0 10^3/uL 33 Granulocyte % 59.5 % 38-83 33 Lymphocyte % 26.9 % 25-47 33 Monocyte % 9.4 % High 1-9 33 Eosinophil % 3.6 % 0-6 33 Basophil % 0.6 % 0-2 33 Nucleated Red Blood Cells % 0 33 Laboratory test finding 07/29/2013 PSA Diagnostic 5.379 ng/mL High 0-4.0 39 Comp Metabolic Panel 06/03/2013 Sodium 138 mmol/L [...] Egfr Non- 65.6 >60 Egfr 84.4 >60 40 Lipid Profile (Trig/Chol/HDL) 06/03/2013 Triglycerides 148 mg/dL 40-200 Cholesterol 173 mg/dL Less than 200 HDL Cholesterol 48 mg/dL 40-60 41 Cholesterol/HDL Ratio 3.6 Average 1-4.44 LDL Cholesterol 95.4 Less Than 100 42 Laboratory test finding 04/13/2013 PSA Diagnostic 5.891 ng/mL High 0- 4.000 43 Surgical Pathology 06/17/2012 S RUN DATE: <SEE NOTE> Lipid Profile 06/02/2012 Triglycerides 151 mg/dL 40-200 (Trig/Chol/HDL) Cholesterol 166 mg/dL Less than 200 HDL Cholesterol 50 mg/dL 40-60 45 Cholesterol/HDL Ratio 3.3 Average 1-4.44 LDL Cholesterol 85.8 mg/dL Less Than 100 46 Comp Metabolic Panel 06/02/2012 Sodium 138 mmol/L [...] Egfr Non- 65.8 >60 Egfr 84.6 >60 47 Laboratory test 06/02/2012 Hemoglobin A1c 5.9 % Less than 6.0 48 finding Laboratory test 04/17/2012 Uric Acid 5.3 mg/dL 2.6-7.2 finding Laboratory test 04/17/2012 Erythrocyte Sed Rate 28 mm/Hr 0-40 finding Laboratory test 04/07/2012 PSA Diagnostic 4.10 NG/ML High 0-4.0 49 finding Laboratory test 09/05/2011 PSA,Diagnostic 3.07 NG/ML 0-4 50 finding Lipid Profile 05/30/2011 Triglyceride 138 mg/dL 40-200 (Trig/Chol/HDL) Cholesterol 171 mg/dL Less Than 200 51 High Density Lipoprotein 47 mg/dL 40-60 52 Cholesterol/HDL Ratio 3.64 AVERAGE 1-4.97 Low Density Lipoprotein 96 mg/dL Less Than 100 53 Comp Metabolic Panel 05/30/2011 Sodium 140 mmol/L 135-145 Potassium 4.2 mmol/L 3.5-5.0 Chloride 106 mmol/L 101-111 Co2 (Carbon Dioxide) 28.0 mmol/L 22-32 Anion Gap 6.0 mmol/L 2-11 54 Glucose 98 mg/dL 70-100 BUN 14 mg/dL 6-24 Creatinine 1.0 mg/dL 0.50-1.40 One Over Creatinine 1.00 BUN/Creatinine Ratio 14.0 8-20 Calcium 9.5 mg/dL 8.1-9.9 Total Protein 6.8 GM/DL 6.2-8.1 Albumin 4.2 GM/DL 3.2-5.2 Globulin 2.6 GM/DL 2-4 Albumin/Globulin Ratio 1.6 1-3 Bilirubin Total 0.9 mg/dL 0.4-1.5 55 Alkaline Phosphatase 55 U/L 39-117 Alt (SGPT) 25 U/L 17-63 Ast (Sgot) 23 U/L 12-42 eGFR Non- 73.7 > 60 eGFR 94.7 > 60 56 Laboratory test finding 05/30/2011 CPK (Creatine Kinase) 129 U/L 0-200 Hemoglobin A1c 5.7 % Less Than 6.0 57 Surgical Pathology 03/12/2011 Surgical Pathology <SEE 58 NOTE> Laboratory test 02/13/2011 PSA,Diagnostic 3.89 NG/ML 0-4 59 finding Laboratory test 01/02/2011 Ferritin 81 NG/ML 24-336 finding Vitamin B12 And 01/02/2011 Vitamin B12 448 pg/mL 180-914 Folate Serum Folic Acid 16.6 NG/ML High 2-16 Laboratory test finding 01/02/2011 Iron Total 121 g/dL 45-182 Laboratory test finding 08/14/2010 PSA,Diagnostic 3.48 NG/ML 0-4 60 Laboratory test finding 05/01/2010 Ast (Sgot) 26 [...] Eosinophils 0.2 0-0.6 Abs Basophils 0 0-0.2 DR Uribe's Lab Panel 05/01/2010 TSH 2.01 MIU/ML 0.34-5.60 Comp Metabolic Panel 05/01/2010 Sodium 140 mmol/L 135-145 Potassium 4.3 mmol/L 3.5-5.0 Chloride 107 mmol/L 101-111 Co2 (Carbon Dioxide) 27.0 mmol/L 22-32 Anion Gap 6.0 mmol/L 2-11 61 Glucose 104 mg/dL High 70-100 BUN 15 mg/dL 6-24 Creatinine 1.10 mg/dL 0.50-1.40 One Over Creatinine 0.90 BUN/Creatinine Ratio 13.6 8-20 Calcium 9.4 mg/dL 8.1-9.9 Total Protein 6.5 GM/DL 6.2-8.1 Albumin 4.2 GM/DL 3.2-5.2 Globulin 2.3 GM/DL 2-4 Albumin/Globulin Ratio 1.8 1-3 Bilirubin Total 0.9 mg/dL 0.4-1.5 62 Alkaline Phosphatase 62 U/L 39-117 eGFR Non- 70.3 > 60 eGFR 85.1 > 60 63 Lipid Profile (Trig/Chol/HDL) 05/01/2010 Triglyceride 130 mg/dL 40-200 Cholesterol 155 mg/dL Less Than 200 64 High Density Lipoprotein 45 mg/dL 40-60 65 Cholesterol/HDL Ratio 3.44 AVERAGE 1-4.97 Low Density Lipoprotein 84 mg/dL Less Than 100 66 Laboratory test finding 08/24/2009 PSA,Diagnostic 2.79 NG/ML 0-4 67 Laboratory test finding 06/05/2009 Clotest N^NEGATIVE^TOÑO DR Uribe's Lab Panel 05/10/2009 TSH 2.51 MIU/ML 0.34-5.60 68 Comp Metabolic Panel 05/10/2009 Sodium 140 mmol/L 135-145 68 Potassium 4.6 mmol/L 3.5-5.0 68 Chloride 106 mmol/L 101-111 68 Co2 (Carbon Dioxide) 29.0 mmol/L 22-32 68 Anion Gap 5.0 mmol/L 2-11 68, 69 Glucose 106 mg/dL High 70-100 68, 70 BUN 12 mg/dL 6-24 68 Creatinine 1.00 mg/dL 0.50-1.40 68 One Over Creatinine 1.00 68 BUN/Creatinine Ratio 12.0 8-20 68 Calcium 9.7 mg/dL 8.1-9.9 68, 71 Total Protein 6.3 GM/DL 6.2-8.1 68 Albumin 4.0 GM/DL 3.2-5.2 68 Globulin 2.3 GM/DL 2-4 68 Albumin/Globulin Ratio 1.7 1-3 68 Bilirubin Total 0.6 mg/dL 0.4-1.5 68, 72 Alkaline Phosphatase 45 U/L 39-117 68 Alt (SGPT) 36 U/L 17-63 68 Ast (Sgot) 27 U/L 12-42 68 eGFR Non- 78.7 > 60 68 eGFR 95.3 > 60 68, 73 Lipid Profile (Trig/Chol/HDL) 05/10/2009 Triglyceride 128 mg/dL 40-200 68 Cholesterol 184 mg/dL Less Than 200 68, 74 High Density Lipoprotein 50 mg/dL 40-60 68, 75 Cholesterol/HDL Ratio 3.68 AVERAGE 1-4.97 68 Low Density Lipoprotein 108 mg/dL High Less Than 100 68, 76 CBC With Electronic Diff 05/10/2009 White Blood Count 7.4 CUMM 4.8-10.8 68 Red Cell Count 4.59 CUMM Low 4.6-6.2 68 Hemoglobin 13.3 g/dL Low 14.0-18.0 68 Hematocrit 40 % Low 42-52 68 Mean Corpuscular Volume 88 um3 80-94 68 Mean Corpuscular Hemoglob 29 pg 27-31 68 Mean Corpuscular HGB Cone 33 g/dL 32-36 68 Redcell Distribution WDTH 15 % 10.5-15 68 Platelet Count 136 CUMM Low 150-450 68 Mean Platelet Volume 11.4 um3 High 7.4-10.4 68 Gran % 62.9 % 38-83 68 Lymph % 25.5 % 25-47 68 Mononuclear % 7.0 % 1-9 68 Eosinophil % 4.3 % 0-6 68 Basophil % 0.3 % 0-2 68 Abs Lymphs 1.9 1.0-4.8 68 Abs Mononuclear 0.5 0-0.8 68 Absolute Neutrophil Count 4.7 1.5-7.7 68 Abs Eosinophils 0.3 0-0.6 68 Abs Basophils 0 0-0.2 68 Laboratory test finding 02/23/2009 PSA,Diagnostic 3.35 NG/ML 0-4 77 CBC With Electronic Diff 06/02/2008 White Blood Count 6.1 CUMM 4.8-10.8 78 Red Cell Count 4.38 CUMM Low 4.6-6.2 78 Hemoglobin 12.8 g/dL Low 14.0-18.0 78 Hematocrit 38 % Low 42-52 78 Mean Corpuscular Volume 86 um3 80-94 78 Mean Corpuscular Hemoglob 29 pg 27-31 78 Mean Corpuscular HGB Cone 34 g/dL 32-36 78 Redcell Distribution WDTH 14 % 10.5-15 78 Platelet Count 128 CUMM Low 150-450 78 Mean Platelet Volume 11.4 um3 High 7.4-10.4 78 Gran % 60.9 % 38-83 78 Lymph % 21.1 % Low 25-47 78 Mononuclear % 14.2 % High 1-9 78 Eosinophil % 3.5 % 0-6 78 Basophil % 0.3 % 0-2 78 Abs Lymphs 1.3 1.0-4.8 78 Abs Mononuclear 0.9 High 0-0.8 78 Absolute Neutrophil Count 3.7 1.5-7.7 78 Abs Eosinophils 0.2 0-0.6 78 Abs Basophils 0 0-0.2 78 Comp Metabolic Panel 06/02/2008 Sodium 139 mmol/L 135-145 78 Potassium 5.2 mmol/L High 3.5-5.0 78 Chloride 107 mmol/L 101-111 78 Co2 (Carbon Dioxide) 28.0 mmol/L 22-32 78 Anion Gap 4.0 mmol/L 2-11 78, 79 Glucose 96 mg/dL 70-100 78, 80 BUN 14 mg/dL 6-24 78 Creatinine 1.10 mg/dL 0.50-1.40 78 One Over Creatinine 0.90 78 BUN/Creatinine Ratio 12.7 8-20 78 Calcium 9.3 mg/dL 8.1-9.9 78, 81 Total Protein 6.2 GM/DL 6.2-8.1 78 Albumin 3.8 GM/DL 3.2-5.2 78 Globulin 2.4 GM/DL 2-4 78 Albumin/Globulin Ratio 1.6 1-3 78 Bilirubin Total 0.7 mg/dL 0.4-1.5 78 Alkaline Phosphatase 59 U/L 39-117 78 Alt (SGPT) 25 U/L 17-63 78 Ast (Sgot) 24 U/L 12-42 78 Lipid Profile (Trig/Chol/HDL) 06/02/2008 Triglyceride 121 mg/dL 40-200 78 Cholesterol 160 mg/dL Less Than 200 78, 82 High Density Lipoprotein 43 mg/dL 40-60 78, 83 Cholesterol/HDL Ratio 3.72 AVERAGE 1-4.97 78 Low Density Lipoprotein 93 mg/dL Less Than 100 78, 84 Laboratory test 06/02/2008 TSH 1.94 MIU/ML 0.34-5.60 78 finding Laboratory test 02/10/2008 PSA,Diagnostic 2.56 NG/ML 0-4 85 finding Laboratory test 08/10/2007 PSA Screening 2.34 NG/ML 0-4 86 finding Surgical Pathology 06/17/2007 Surgical Pathology 87 <SEE NOTE> CBC W/ Electronic Diff 06/03/2007 White Blood Count 7.1 CUMM 4.8-10.8 88 Abs Basophils 0 0-0.2 88 Abs Eosinophils 0.3 0-0.6 88 Absolute Neutrophil Count 4.1 1.5-7.7 88 Abs Lymphs 2.0 1.0-4.8 88 Abs Mononuclear 0.7 0-0.8 88 Basophil % 0.5 % 0-2 88 Hematocrit 40 % Low 42-52 88 Hemoglobin 13.5 g/dL Low 14.0-18.0 88 Eosinophil % 3.9 % 0-6 88 Gran % 57.5 % 38-83 88 Lymph % 28.6 % 20-45 88 Mean Corpuscular HGB Cone 34 g/dL 32-36 88 Mean Corpuscular Hemoglob 29 pg 27-31 88 Mean Corpuscular Volume 87 um3 80-94 88 Mean Platelet Volume 11.8 um3 High 7.4-10.4 88 Mononuclear % 9.5 % High 1-9 88 Platelet Count 163 CUMM 150-450 88 Red Cell Count 4.58 CUMM Low 4.6-6.2 88 Redcell Distribution WDTH 14 % 10.5-15 88 Comp Metabolic Panel 06/03/2007 One Over Creatinine 0.83 88 Anion Gap 7.0 mmol/L 2-11 88, 89 Albumin/Globulin Ratio 1.7 1-3 88 Albumin 4.0 GM/DL 3.2-5.2 88 Alkaline Phosphatase 54 U/L 39-117 88 Alt (SGPT) 27 U/L 17-63 88 Ast (Sgot) 25 U/L 12-42 88 BUN 14 mg/dL 6-24 88 Calcium 9.2 mg/dL 8.7-10.2 88 Chloride 102 mmol/L 101-111 88 Co2 (Carbon Dioxide) 26.0 mmol/L 22-32 88 Globulin 2.4 GM/DL 2-4 88 Glucose 95 mg/dL 70-105 88 Potassium 4.5 mmol/L 3.5-5.0 88 Sodium 135 mmol/L 135-145 88 Bilirubin Total 0.6 mg/dL 0.4-1.5 88 Total Protein 6.4 GM/DL 6.2-8.1 88 BUN/Creatinine Ratio 11.7 8-20 88 Creatinine 1.2 mg/dL 0.5-1.4 88 Lipid Profile 06/03/2007 Cholesterol/HDL Ratio 3.69 AVERAGE 1-4.97 88 (Trig/Chol/HDL) Cholesterol 166 mg/dL Less Than 200 88, 90 Triglyceride 135 mg/dL 40-200 88 High Density Lipoprotein 45 mg/dL 40-60 88 Low Density Lipoprotein 94 mg/dL Less Than 100 88, 91 Laboratory test finding 06/03/2007 TSH 1.15 MIU/ML 0.34-5.60 88 1 FASTING Copy Result to: PAMELA URIBE ([id number]) 2 FASTING Copy Result to: PAMELA URIBE ([id number]) 3 Desirable: <150 Borderline High: 150-199 High: 200-499 Very High: >500 4 Desirable: <200 Borderline High: 200-239 High: >239 5 Low: <40 Desirable: 40-60 High: >60 6 Desirable: <100 Near Optimal: 100-129 Borderline High: 130-159 High: 160-189 Very High: >189 7 Because ethnic data is not always readily [...] 15-29 5 Kidney failure <15 (or dialysis) 8 Serum levels of PSA measured using the [employer] [place] DXI [employer]brite[employer] immunoassay should not be interpreted as absolute evidence of the presence or absence of disease. The PSA value should be used in conjunction with other pertinent clinical diagnostic procedures. The values obtained with different assay methods or kits cannot be used interchangeably. 9 SEE RESULT BELOW Name: CORBIN MILLAN : [address]: Madi Fischer MD Acct: [id number] Unit: [id number] AGE: 77 Location: ENDO Re07/29/17 SEX: M Status: DEP REF SPEC: [id number] JANET: 07/29/17- [facility] DR: Madi Fischer MD REQ: [id number] RECD: 07/30/17-8 STATUS: ROXY CASTELLANOS DR: Cinda Uribe III, MD _ ORDERED: LEVEL 4/3 FINAL DIAGNOSIS 1. Colon, sigmoid, biopsy: -- Tubular adenoma. -- No high grade dysplasia or malignancy. 2. Colon, rectosigmoid at 18 cm, biopsy: -- Hyperplastic polyp. 3. Colon, rectosigmoid at 15 cm, biopsy: -- Tubular adenoma. -- No high grade dysplasia or malignancy. CLINICAL HISTORY Screening/Surveillance for malignancy in asymptomatic patient. Follow-up polyps POST-OPERATIVE DIAGNOSIS Colonoscopy to cecum ? last quarter of right colon difficult. Conclusions/ Plan: Diverticulosis, left greater than right, extensive; small polyps GROSS DESCRIPTION 1. The specimen is received in formalin labeled, Biopsy Sigmoid Colon Polyp , and consists of two gonzalez-pink irregular to polypoid soft tissue fragments measuring 0.2 x 0.2 x 0.2 cm and 0.5 x 0.2 x 0.1 cm which are submitted entirely in one cassette. 2. The specimen is received in formalin labeled, Rectosigmoid Polyp at 18 cm, and consists of a 0.4 x 0.3 x 0.1 cm gonzalez-white irregular to polypoid soft tissue fragment which is submitted entirely in one cassette. CONTINUED ON NEXT PAGE DEPARTMENT OF PATHOLOGY, [address] [place] [address] Justice Dunlap M.D. Director [facility] # [id number] RUN DATE: 07/31/17 [facility] LAB LIVE PAGE 2 Patient: CORBIN MILLAN [id number] (Continued) GROSS DESCRIPTION (Continued) GROSS DESCRIPTION (Continued) 3. The specimen is received in formalin labeled, Rectosigmoid Polyp at 15 cm, and consists of a 0.4 x 0.2 x 0.2 cm gonzalez irregular to polypoid soft tissue fragment which is submitted entirely in one cassette. Signed (signature on file) Elsa Chaney MD 1115 END OF REPORT DEPARTMENT OF PATHOLOGY, [address] [place] [address] Justice Dunlap M.D. Director [facility] # [id number] 10 Giant Platelets 11 Because ethnic data is not always readily [...] 15-29 5 Kidney failure <15 (or dialysis) 12 SEE RESULT BELOW Name: CORBIN MILLAN DOB: [address]: Adrian Sneed MD Acct: [id number] Unit: [id number] AGE: 77 Location: ED Re07/24/17 SEX: M Status: DEP ER SPEC: [id number] JANET: 07/24/[address]: Adrian Sneed MD REQ: [id number] RECD: 07/24/17 STATUS: VARUN CASTELLANOS DR: Pamela Uribe III, MD _ SOURCE: URINE SPDESC: ORDERED: Urine Culture Procedure Result Reported Site Urine Culture Final 07/26/17- 09 ML No Growth (<1,000 CFU/mL) * ML - Main Lab . END OF REPORT DEPARTMENT OF PATHOLOGY, [address] [place] [address] Justice Dunlap M.D. Director [facility] # [id number] 13 Because ethnic data is not always readily [...] 15-29 5 Kidney failure <15 (or dialysis) 14 99th percentile=0.04 ng/mL Troponin results at [facility] and [facility] are not interchangeable. 15 Because ethnic data is not always readily [...] 15-29 5 Kidney failure <15 (or dialysis) 16 >100 to <200 pg/mL: likely compensated congestive heart failure (CHF) 200 to 400 pg/mL: likely moderate CHF >400 pg/mL: likely moderate to severe CHF [address] [facility] Severe Sepsis and Septic Shock Management Bundle Measure requires all lactic acids initially measuring >2.0 mmol/L be repeated. 18 Because ethnic data is not always readily [...] 15-29 5 Kidney failure <15 (or dialysis) 19 Desirable <150 Borderline high 150-199 High 200-499 Very High >500 20 Desirable <200 Borderline high 200-239 High >239 21 Low <40 Desirable: 40-60 High: >60 22 Desirable: <100 mg/dL Near Optimal: 100-129 mg/dL Borderline High: 130-159 mg/dL High: 160-189 mg/dL Very High: >189 mg/dL 23 Serum levels of PSA measured using the [employer] DXI Hybritech immunoassay should not be interpreted as absolute evidence of the presence or absence of disease. The PSA value should be used in conjunction with other pertinent clinical diagnostic procedures. The values obtained with different assay methods or kits cannot be used interchangeably. 24 Desirable <150 Borderline high 150-199 High 200-499 Very High >500 25 Desirable <200 Borderline high 200-239 High >239 26 Low <40 Desirable: 40-60 High: >60 27 Desirable: <100 mg/dL Near Optimal: 100-129 mg/dL Borderline High: 130-159 mg/dL High: 160-189 mg/dL Very High: >189 mg/dL 28 Because ethnic data is not always [...] 5 Kidney failure <15 (or dialysis) 29 Copy Result to: KEM HSU ([id number]) 30 SEE RESULT BELOW Name: CORBIN MILLAN : [address]: Cinda Leigh MD Acct: [id number] Unit: [id number] AGE: 74 Location: [facility] Re03/01/15 SEX: M Status: REG REF SPEC: [id number] JANET: 03/01/[address]: Cinda Leigh MD REQ: [id number] RECD: 03/01/15 STATUS: COMP [facility] DR: Kem Uribe III, MD _ SOURCE: STOOL SPDESC: ORDERED: Hemoccult COMMENTS: Copy Result to: KEM HSU ([id number]) Procedure Result Verified Site Stool Occult Blood Final 03/01/15- 2124 ML Stool Occult Blood Negative * ML - MAIN LAB ([facility]) . END OF REPORT * ML=Testing performed at Main Lab DEPARTMENT OF PATHOLOGY, [address] [place] [address] Justice Dunlap M.D. Director [facility] # [id number] 31 Because ethnic data is not always readily [...] 15-29 5 Kidney failure <15 (or dialysis) 32 Acute inflammation: >10.00 33 PATIENT IS FASTING 34 Because ethnic data is not always readily [...] 15-29 5 Kidney failure <15 (or dialysis) 35 Desirable <150 Borderline high 150-199 High 200-499 Very High >500 36 Desirable <200 Borderline high 200-239 High >239 37 Low <40 Desirable: 40-60 High: >60 38 Desirable <100 Near Optimal 100-129 Borderline high 130-159 High 160-189 Very High >189 39 Serum levels of PSA measured using the [employer] DXI Hybritech immunoassay should not be interpreted as absolute evidence of the presence or absence of disease. The PSA value should be used in conjunction with other pertinent clinical diagnostic procedures. The values obtained with different assay methods or kits cannot be used interchangeably. 40 Because ethnic data is not always readily [...] 15-29 5 Kidney failure <15 (or dialysis) 41 HDL Interpretation: Undesirable: High Risk: Less than 40 mg/dL Desirable: Low Risk: Greater than 60 mg/dL 42 LDL Interpretation: Low Risk Optimal Level: LDL Less than 100 mg/dL Near or Above Optimal: LDL 100-129 mg/dL Borderline High Risk: LDL 130-159 mg/dL High Risk: LDL 160-189 mg/dL Very High Risk: LDL Greater than 189 mg/dL 43 Serum levels of PSA measured using the [employer] DXI Hybritech immunoassay should not be interpreted as absolute evidence of the presence or absence of disease. The PSA value should be used in conjunction with other pertinent clinical diagnostic procedures. The values obtained with different assay methods or kits cannot be used interchangeably. 44 RUN DATE: 06/18/12 [facility] LAB LIVE PAGE 1 RUN TIME: [address] [place] [address] Specimen Inquiry Name: CORBIN MILLAN : [address]: Kem Hsu MD Acct: [id number] Unit: [id number] AGE: 71 Location: ENDO Re06/17/12 SEX: M Status: REG REF SPEC: [id number] JANET: 06/17/12- SUBM DR: Kem Hsu MD REQ: [id number] RECD: 06/17/122 STATUS: ROXY CASTELLANOS DR: Pamela Uribe III, MD _ ORDERED: LEVEL IV FINAL DIAGNOSIS Colon, 40.0 cm., biopsy: A. Tubular adenoma. B. No high grade dysplasia or malignancy. CLINICAL HISTORY History of colon polyps in 2007. Colonoscopy into cecum, prep fair. Two small polyps removed with jumbo biopsy forceps. Diffuse diverticulosis. GROSS DESCRIPTION The specimen is received in formalin labeled Corbin Millan, Colon Polyp at 40.0 cm. and consists of multiple, gonzalez, soft tissue fragments measuring 0.7 x 0.4 x 0.2 cm. in aggregate. Submitted entirely, one cassette. Signed (signature on file) Justice Dunlap MD 1522 END OF REPORT * ML=Testing performed at Main Lab DEPARTMENT OF PATHOLOGY, [address] [place] [address] Justice Dunlap M.D. Director [facility] Permit #[id number] 45 HDL Interpretation: Undesirable: High Risk: Less than 40 MG/DL Desirable: Low Risk: Greater than 60 MG/DL 46 LDL Interpretation: Low Risk Optimal Level: LDL Less than 100 MG/DL Near or Above Optimal: LDL 100-129 MG/DL Borderline High Risk: LDL 130-159 MG/DL High Risk: LDL 160-189 MG/DL Very High Risk: LDL Greater than 189 MG/DL 47 Because ethnic data is not always readily [...] 15-29 5 Kidney failure <15 (or dialysis) 48 Therapeutic target for the treatment of diabetes Mellitus patients is <7% HBA1C, and in selective patients <6.0%.Please refer to [place] [employer] Diabetic care guidelines for further information. 49 Serum levels of PSA measured using the [employer] DXI Hybritech immunoassay should not be interpreted as absolute evidence of the presence or absence of disease. The PSA value should be used in conjunction with other pertinent clinical diagnostic procedures. The values obtained with different assay methods or kits cannot be used interchangeably. 50 * SERUM LEVELS OF PSA MEASURED USING THE [employer] ACCESS HYBRITECH IMMUNOASSAY SHOULD NOT BE INTERPRETED ABSOLUTE EVIDENCE OF THE PRESENCE OR ABSENCE OF DISEASE. THE PSA VALUE SHOULD BE USED IN CONJUNCTION WITH OTHER PERTINENT CLINICAL DIAGNOSTIC PROCEDURES. The values obtained with different assay methods or kits cannot be used interchangeably. 51 CHOLESTEROL INTERPRETATION: Desirable: Less than 200 MG/DL Borderline-High Risk: 200-239 MG/DL High-Risk: 240 MG/DL and over 52 HDL INTERPRETATION: Undesirable: High Risk: Less than 40 MG/DL Desirable: Low Risk: Greater than 60 MG/DL 53 LDL INTERPRETATION: Low Risk Optimal Level: LDL Less than 100 MG/DL Near or Above Optimal: LDL 100-129 MG/DL Borderline High Risk: LDL 130-159 MG/DL High Risk: LDL 160-189 MG/DL Very High Risk: LDL Greater than 189 MG/DL 54 Anion gap measurement may be of limited value in the presence of any alkalosis, especially in a combined acid base disorder. . 55 A metabolite of Naproxen, O-desmethylnaproxen, has been shown to interfere with the Jendrassik-Jeff method for measuring total bilirubin. Samples from patients who have taken Naproxen have shown spurious elevation in total bilirubin levels. 56 Because ethnic data is not always readily [...] 15-29 5 Kidney failure <15 (or dialysis) 57 THERAPEUTIC TARGET FOR THE TREATMENT OF DIABETES MELLITUS PATIENTS IS <7% HBA1C, AND IN SELECTIVE PATIENTS <6.0%. PLEASE REFER TO [place] [employer] DIABETIC CARE GUIDELINES FOR FURTHER INFORMATION. 58 ---- RUN DATE: 03/14/11 [facility] NMI LIVE PAGE 1 RUN TIME: 1250 Specimen Inquiry RUN USER: INTERFACE -- Name: CORBIN MILLAN Status: REG REF Re03/12/11 Age/Sex: 70/M Unit#: [id number] Location: [facility] : 39 -- Specimen: [id number] Spec Date: 03/12/[address]: Deondre Martínez i, MD Spec Type: SURGICAL P Received: 03/13/11 Copies to: Pamela Uribe III, MD SPECIMEN 1) LEFT LOBE [...] formalin labelled Corbin Millan, Left Prostate Lobe [place] and consists of three, gonzalez, soft tissue [...] formalin labelled Corbin Millan, Right Prostate Lobe [place] and consists of three, gonzalez, soft tissue [...] of neoplasia identified. -- DEPARTMENT OF PATHOLOGY, [address] [place] [address] [facility] Permit #[id number] Jin Britton M.D. Service Center Supervisor Dir ambar -- -- RUN DATE: 03/14/11 [facility] NMI LIVE PAGE 2 RUN TIME: 1250 Specimen Inquiry RUN USER: INTERFACE -- Name: CORBIN MILLAN Status: REG REF Re03/12/11 Age/Sex: 70/M Unit#: [id number] Location: [facility] : 39 -- -- CONTINUED -- DIAGNOSIS [...] 03/14/11 1247 -- -- DEPARTMENT OF PATHOLOGY, [address] [place] [address] [facility] Permit #[id number] Justice Dunlap M.D. Director [employer] ch[employer] -- 59 * SERUM LEVELS OF PSA MEASURED USING THE [employer] ACCESS HYBRITECH IMMUNOASSAY SHOULD NOT BE INTERPRETED ABSOLUTE EVIDENCE OF THE PRESENCE OR ABSENCE OF DISEASE. THE PSA VALUE SHOULD BE USED IN CONJUNCTION WITH OTHER PERTINENT CLINICAL DIAGNOSTIC PROCEDURES. 60 * SERUM LEVELS OF PSA MEASURED USING THE [employer] ACCESS HYBRITECH IMMUNOASSAY SHOULD NOT BE INTERPRETED ABSOLUTE EVIDENCE OF THE PRESENCE OR ABSENCE OF DISEASE. THE PSA VALUE SHOULD BE USED IN CONJUNCTION WITH OTHER PERTINENT CLINICAL DIAGNOSTIC PROCEDURES. 61 Anion gap measurement may be of limited value in the presence of any alkalosis, especially in a combined acid base disorder. . 62 A metabolite of Naproxen, O-desmethylnaproxen, has been shown to interfere with the Jendrassik-Jeff method for measuring total bilirubin. Samples from patients who have taken Naproxen have shown spurious elevation in total bilirubin levels. 63 Because ethnic data is not always readily [...] 15-29 5 Kidney failure <15 (or dialysis) 64 CHOLESTEROL INTERPRETATION: Desirable: Less than 200 MG/DL Borderline-High Risk: 200-239 MG/DL High-Risk: 240 MG/DL and over 65 HDL INTERPRETATION: Undesirable: High Risk: Less than 40 MG/DL Desirable: Low Risk: Greater than 60 MG/DL 66 LDL INTERPRETATION: Low Risk Optimal Level: LDL Less than 100 MG/DL Near or Above Optimal: LDL 100-129 MG/DL Borderline High Risk: LDL 130-159 MG/DL High Risk: LDL 160-189 MG/DL Very High Risk: LDL Greater than 189 MG/DL 67 * SERUM LEVELS OF PSA MEASURED USING THE [employer] ACCESS HYBRITECH IMMUNOASSAY SHOULD NOT BE INTERPRETED ABSOLUTE EVIDENCE OF THE PRESENCE OR ABSENCE OF DISEASE. THE PSA VALUE SHOULD BE USED IN CONJUNCTION WITH OTHER PERTINENT CLINICAL DIAGNOSTIC PROCEDURES. 68 PATIENT MAY HAVE RESULTS PER DOCTOR'S AUTHORIZATION. Questions regarding this report should be directed to your doctor. FASTING 69 Anion gap measurement may be of limited value in the presence of any alkalosis, especially in a combined acid base disorder. . 70 Note change in reference range as of 12/31/07. The change was based on recommendations from the [place] Diabetes [employer]. 71 Please note change in reference range effective 07 . 72 A metabolite of Naproxen, O-desmethylnaproxen, has been shown to interfere with the Jendrassik-[place] method for measuring total bilirubin. Samples from patients who have taken Naproxen have shown spurious elevation in total bilirubin levels. 73 Because ethnic data is not always readily [...] 15-29 5 Kidney failure <15 (or dialysis) 74 CHOLESTEROL INTERPRETATION: Desirable: Less than 200 MG/DL Borderline-High Risk: 200-239 MG/DL High-Risk: 240 MG/DL and over 75 HDL INTERPRETATION: Undesirable: High Risk: Less than 40 MG/DL Desirable: Low Risk: Greater than 60 MG/DL 76 LDL INTERPRETATION: Low Risk Optimal Level: LDL Less than 100 MG/DL Near or Above Optimal: LDL 100-129 MG/DL Borderline High Risk: LDL 130-159 MG/DL High Risk: LDL 160-189 MG/DL Very High Risk: LDL Greater than 189 MG/DL 77 * SERUM LEVELS OF PSA MEASURED USING THE [employer] ACCESS HYBRITECH IMMUNOASSAY SHOULD NOT BE INTERPRETED ABSOLUTE EVIDENCE OF THE PRESENCE OR ABSENCE OF DISEASE. THE PSA VALUE SHOULD BE USED IN CONJUNCTION WITH OTHER PERTINENT CLINICAL DIAGNOSTIC PROCEDURES. 78 PATIENT MAY HAVE RESULTS PER DOCTOR'S AUTHORIZATION. Questions regarding this report should be directed to your doctor. FASTING 79 Anion gap measurement may be of limited value in the presence of any alkalosis, especially in a combined acid base disorder. . 80 Note change in reference range as of 12/31/07. The change was based on recommendations from the [place] [employer]. 81 Please note change in reference range effective 07 . 82 CHOLESTEROL INTERPRETATION: Desirable: Less than 200 MG/DL Borderline-High Risk: 200-239 MG/DL High-Risk: 240 MG/DL and over 83 HDL INTERPRETATION: Undesirable: High Risk: Less than 40 MG/DL Desirable: Low Risk: Greater than 60 MG/DL 84 LDL INTERPRETATION: Low Risk Optimal Level: LDL Less than 100 MG/DL Near or Above Optimal: LDL 100-129 MG/DL Borderline High Risk: LDL 130-159 MG/DL High Risk: LDL 160-189 MG/DL Very High Risk: LDL Greater than 189 MG/DL 85 * SERUM LEVELS OF PSA MEASURED USING THE [employer] ACCESS HYBRITECH IMMUNOASSAY SHOULD NOT BE INTERPRETED ABSOLUTE EVIDENCE OF THE PRESENCE OR ABSENCE OF DISEASE. THE PSA VALUE SHOULD BE USED IN CONJUNCTION WITH OTHER PERTINENT CLINICAL DIAGNOSTIC PROCEDURES. 86 * SERUM LEVELS OF PSA MEASURED USING THE [employer] ACCESS HYBRITECH IMMUNOASSAY SHOULD NOT BE INTERPRETED ABSOLUTE EVIDENCE OF THE PRESENCE OR ABSENCE OF DISEASE. THE PSA VALUE SHOULD BE USED IN CONJUNCTION WITH OTHER PERTINENT CLINICAL DIAGNOSTIC PROCEDURES. 87 ---- RUN DATE: 06/18/07 [facility] NMI LIVE PAGE 1 RUN TIME: 1628 Specimen Inquiry RUN USER: INTERFACE [id number] LORINCORBIN CHERRY Buzz 66/M <REG REF 06/17> ([id number]) KENYA Hsu MD,Kem Balderrama -- Specimen: [id number] SOUT Spec Date: 06/17/[address]: Kem burch MD Spec Type: SURGICAL P Received: 06/17/07-1401 Copies to: Pamela Uribe III, MD SPECIMEN 1) RIGHT COLON [...] is received in formalin labelled Corbin Millan, 35 cm. Colon Biopsy, and consists of [...] cm., biopsy - -- DEPARTMENT OF PATHOLOGY, [address] [place] [address] [facility] Permit #[id number] Justice Dunlap M.D. Director of Laboratories -- -- RUN DATE: 06/18/07 [facility] NMI LIVE PAGE 2 RUN TIME: 4876 Specimen Inquiry RUN USER: INTERFACE -- SPEC #: [id number] PATIENT: CORBIN MILLAN #[id number] (Continued) -- DIAGNOSIS (Continued) Hyperplastic polyp. COMMENT The findings in Part 1 are nonspecific and may represent an inflammatory hypertension polyp or a focal acute insult. Signed Electronically by: JUSTICE DUNLAP MD 06/18/07 1628 -- -- DEPARTMENT OF PATHOLOGY, [address] [place] [address] [facility] Permit #[id number] Justice Dunlap M.D. Director of [employer] -- 88 PATIENT MAY HAVE RESULTS PER DOCTOR'S AUTHORIZATION. Questions regarding this report should be directed to your doctor. 89 Anion gap measurement may be of limited value in the presence of any alkalosis, especially in a combined acid base disorder. . 90 Classification: Desirable . 91 CALCULATED LDL APPROXIMATES THE VALUE OF A DIRECT LDL MEASUREMENT. Classification: Optimal Level . Procedures Date CPT Code Description Status 08/25/2017 04710 Diffusing Capacity Completed 08/25/2017 49263 Plethysmography Determination Lung Volumes & Per Airway Completed Resist 08/25/2017 56403 Pulmonary Function><Bronchodil Completed 07/29/2017 Colonoscopy Completed 12/05/2016 26536 EKG Tracing & Interpretation Completed 10/01/2016 37860 EKG Tracing & Interpretation Completed 08/15/2016 93016 Carotid Doppler,Bilateral Completed 08/15/2016 35407 EKG Tracing & Interpretation Completed 06/12/2016 37089 Polysomnography Sleep Staging 4+ Parameters Completed 09/18/2015 99686 EKG Tracing & Interpretation Completed 03/09/2015 37023 Treadmill Interp/Report Only Completed 03/09/2015 34097 Stress Test Supervsn W/Out I/R Completed 03/08/2015 57969 Event Monitor/Phys Review/Interp. Completed 03/08/2015 56954 Cardiac Event Monitor/Recording Completed 03/03/2015 27666 Holter Monitoring 24 HR New Completed 12/19/2014 46775 EKG Tracing & Interpretation Completed 11/24/2014 30405 ECHO Transthorasic Realtime 2D W Doppler & Color Flow Completed Hosp 08/16/2014 24442 Polysomnography Sleep Staging 4+ Parameters Completed 12/13/2013 31825 Holter Monitoring 24 HR New Completed 06/17/2012 Colonoscopy Completed 06/07/2012 60981 Treadmill Interp/Report Only Completed 06/07/2012 34236 Stress Test Supervsn W/Out I/R Completed 06/07/2012 96377 EKG, Interpretation Only Completed 06/07/2012 99269 EKG, Interpretation Only Completed 04/17/2012 Diabetic Foot Exam Completed 12/25/2011 74547 Polysomnography Sleep Staging 4+ Parameters Completed 07/08/2011 51849 Holter Monitor Review (24 hr)dr review & interp only Completed 05/29/2011 79695 Holter Monitor Review (24 hr)dr review & interp only Completed 05/22/2011 30241 Noninvasive Ear Or Pulse Oximetry For Oxygen Saturation Completed 04/25/2010 78472 EKG Tracing & Interpretation Completed 06/05/2009 Colonoscopy Completed 06/07/2008 81278 EKG Tracing & Interpretation Completed 06/17/2007 Colonoscopy Completed Encounters Type Date Location Provider CPT E/M Dx Office Visit 08/11/2017 9:00a [facility] Internal Medicine Davian Anderson, 69553 R05 - Tburg Morales Abdi,FACP M25.561 Office Visit 08/07/2017 4:20p [facility] Hesham Leigh M.D. 47617 G45.9 [facility] Q21.1 E78.00 I10 Office Visit 07/14/2017 3:00p [facility] [place] Jenise Yañ[place] [address] G47.33 [facility] E66.09 Office Visit 04/16/2017 1:00p [facility] Internal Medicine Pamela Uribe, 85091 J06.9 - Jean Abdi Office Visit 01/06/2017 2:30p [facility]ology [place] Jenise Yañ[place] [address] G47.33 [facility] Office Visit 12/05/2016 11:20a [facility] Internal Medicine Pamela Uribe, 97156 Z01.818 - Jean Abdi N32.9 I10 E78.00 R00.2 G47.33 J18.9 Office Visit 11/25/2016 2:20p [facility] Internal Medicine Pamela Uribe, 99631 J18.9 - Jean Abdi Office Visit 10/24/2016 2:20p [facility] Internal Medicine Pamela Uribe, 12998 L98.9 - Jean Abdi Office Visit 10/14/2016 11:40a [facility] Internal Medicine Pamela Uribe, 61861 I10 - Jean Abdi G47.33 E78.00 R00.2 G45.3 F17.201 Office Visit 10/01/2016 9:45a [facility] Of Cinda Leigh M.D. 20217 G45.3 [facility] G45.9 R00.2 I65.23 I10 G47.33 R91.8 Q21.1 Office Visit 08/15/2016 1:45p [facility] Of Cinda Leigh M.D. 36897 G45.9 [facility] G45.3 R00.2 I65.23 I10 E78.00 Q21.1 Office Visit 08/12/2016 11:40a [facility] Internal Medicine - Pamela Uribe, 62296 R00.2 Jean Abdi Office Visit 08/08/2016 4:40p [facility] Internal Medicine - Mathieu Barnett, 12908 R07.9 Viktor Nielsen M.D. Office Visit 07/09/2016 11:45a [facility] [place] Jenise Yañ[place] [address] G47.33 [facility] Office Visit 06/06/2016 2:30p Pul[facility]ology [place] Jenise Yañez [place] [address] G47.9 [facility] Office Visit 05/22/2016 1:00p [facility] Internal Medicine Pamela Uribe, 58644 G47.9 Jean Abdi Office Visit 03/21/2016 2:15p [facility] Cinda Leigh M.D. 33275 R00.2 [facility] G45.9 Q21.1 G47.33 E78.00 Office Visit 01/08/2016 2:45p Pul[facility]ology [facility] [place] Jenise Yañ[place] [address] G47.9 [facility] Office Visit 12/20/2015 10:00a [facility] Internal Medicine Pamela Uribe, 53146 I10 Lázaro Abdi F17.201 Office Visit 11/09/2015 4:00p [facility] Internal Medicine Pamela Uribe, 99321 R07.0 Lázaro Abdi Office Visit 09/18/2015 3:00p [facility] Of Cinda Leigh M.D. 45340 R00.2 Margarita G45.9 Q21.1 G47.33 Office Visit 08/31/2015 2:30p [facility] Viv Morel, 99297 R00.2 [facility] Jin I67.9 G47.61 Office Visit 08/08/2015 10:00a [facility] Internal Medicine - Pamela Uribe, 53150 R00.2 Lázaro Abdi Office Visit 06/15/2015 2:45p [facility] Viv MMaddison Morel, 09538 R00.2 Services Of Margarita Abdi G47.61 I67.9 Office Visit 04/24/2015 3:40p [facility] Internal Medicine Pamela Uribe, 74202 R09.82 - Lázaro Abdi Office Visit 03/27/2015 2:00p [facility] Cinda Leigh M.D. 07417 R00.2 [facility] Q21.8 G45.9 R07.89 I10 E78.5 Office Visit 02/24/2015 1:45p [facility] Cinda Leigh M.D. 45268 Q21.8 [facility] G45.9 R07.89 R61 G47.33 K92.1 R00.2 Q21.1 Office Visit 02/09/2015 2:00p [facility] Internal Medicine Pamela Uribe, 61191 Q21.1 Lázaro Abdi Office Visit 12/27/2014 9:40a [facility] Internal Medicine Pamela Uribe, 17814 745.5 Lázaro Abdi Office Visit 12/19/2014 2:00p [facility] Cinda Leigh M.D. 18429 435.9 [facility] 745.5 401.1 272.4 785.1 Office Visit 12/14/2014 9:40a [facility] Internal Medicine Pamela Uribe, 89360 796.2 - Lázaro Abdi Office Visit 11/28/2014 11:00a [facility] Pamela Uribe, 13221 435.9 - Lázaro Abdi 796.2 Office Visit 11/24/2014 3:40p [facility] Kallie London, 30920 362.34 M.DMaddison 401.9 272.4 Office Visit 11/24/2014 10:38a [facility], Lilibeth Puckett, N.P. 65802 796.2 Hospitalists 530.81 272.4 362.34 Office Visit 11/23/2014 10:37a [place] [address] 530.81 Assoc, Hospitalists M.DMaddison 362.34 796.2 272.4 Office Visit 09/22/2014 11:20a [facility] Kaleigh Soto 78411 780.57 Lázaro Uribe M.D. Office Visit 09/15/2014 9:30a [facility] Jenise Yañez 17588 780.54 [facility] Office Visit 06/23/2014 9:45a [facility] Viv Mancera 87385 780.59 Jin Morel 781.0 Office Visit 06/02/2014 1:30p [facility] [place] Jenise Yañ[place] [address] 780.59 [facility] 530.81 Office Visit 05/31/2014 10:00a [facility] Pamela Uribe, 92487 785.1 - Lázaro Abdi 272.0 790.21 285.9 Office Visit 05/03/2014 10:00a [facility] Pamela Uribe, 89610 465.9 - Lázaro Abdi 785.1 Office Visit 03/15/2014 9:40a [facility] Kaleigh Uribe, 05641 780.57 Lázaro Abdi Office Visit 01/03/2014 10:20a [facility] Kaleigh Uribe, 07152 785.1 Lázaro Abdi Office Visit 12/02/2013 9:00a [facility] Kaleigh Uribe, 44721 780.57 Lázaro Abdi Office Visit 08/12/2013 11:20a [facility] Kaleigh Uribe, 19760 272.0 Lázaro Abdi Office Visit 03/11/2013 10:40a [facility] Kaleigh Uribe, 76934 719.46 Lázaro Abdi Office Visit 07/07/2012 11:00a [facility] Kaleigh Uribe, 98098 785.1 Lázaro Abdi Office Visit 06/07/2012 11:16a [facility], Lilibeth Puckett, N.P. 31962 786.51 Hospitalists 401.9 272.2 Office Visit 01/01/2012 11:28a Jazlyn Hobson, 70272 327.23 [facility] M.DMaddison Office Visit 12/04/2011 1:20p [facility] Pamela Uribe, 05571 401.1 - Nashuatelly Abdi 272.0 780.57 Office Visit 06/05/2011 1:20p [facility] Pamela Uribe, 14215 V70.0 - Lázaro Abdi 401.1 272.0 790.21 787.3 785.1 Office Visit 05/22/2011 10:40a [facility] Pamela Uribe, 75341 785.1 - Lázaro Abdi 787.3 796.2 Office Visit 01/02/2011 2:00p DO Not Use Legal Research Analyst AT Pamela Brittany Uribe, 38734 796.2 [place] Panda.Rosy 272.0 790.21 Office Visit 09/25/2010 10:30a DO Not Use Legal Research Analyst AT Naomy Royce, N.P. [address] [facility] Office Visit 07/05/2010 10:40a DO Not Use Legal Research Analyst AT Pamela Brittany Jojo, 24373 796.2 [place] Panda.DMaddison Office Visit 06/06/2010 11:00a DO Not Use Legal Research Analyst AT Pamela Brittany Uribe, 99111 V70.0 [place] Panda.Rosy 530.11 272.0 790.21 796.2 Office Visit 04/25/2010 1:00p DO Not Use Legal Research Analyst AT Pamela Brittany Jojo, 08625 785.1 [place] Panda.DMaddison 272.0 796.2 Office Visit 01/26/2010 11:00a DO Not Use Legal Research Analyst AT Pamela Brittany Jojo, 99395 709.9 [place] M.DMaddison Office Visit 11/23/2009 2:40p DO Not Use Legal Research Analyst AT [place], 13129 845.19 [place] M.Rosy 844.9 Office Visit 05/17/2009 9:00a DO Not Use Legal Research Analyst AT [place], 02610 V70.0 [facility] 06/07/2008 9:30a [facility] [place], 02123 272.0 [facility] Visit 02/10/2008 11:15a [facility] AT [place], 74914 719.41 [facility] V04.81 Office Visit 06/08/2007 9:30a [facility] AT [place], 73555 V70.0 [facility] Future Appointment(s):06/22/2018 2:20 pm - Pamela Uribe M.D. at [facility] - Bkaxjibfv48/08/2018 - Pamela Uribe M.D.I10 Essential ( primary) hypertensionComments:BPs good; continue Rx, home BP checksFollow up: wellness exam in 6 months or prnF17.201 Nicotine dependence, unspecified, in remissionNew Xrays:CT Lung Screening-Low DoseComments:Repeat screening CT due in FebruaryDiscussed lung cancer screening with patient, including:False positives, which may lead to further imaging studies and additional testing.Low radiation dosing.Adherence to follow-ups.Impact of comorbidities and ability or willingness to undergo diagnosis and treatment.Importance of maintaining cigarette smoking abstinence if former smoker OR Importance of smoking cessation if current smoker.Z68.30 Body mass index (BMI) 30.0-30.9, adultComments:Weights fairly stable, but high for pt; diet, exercise, and greater weight loss efforts again advised
--- NOTE | 2018-01-14 20:29 | ED ---
Headache - HPI Summary HPI Summary: This is Romero bo, documenting for attending David Welsh MD. Patient is a 77 y/o M c/o intermittent headaches, lasting for 4 minutes at most , onset ~1 day ago. Pain is described as sharp, sudden and localized in the left temporal region of his head. He states that he has had 3 episodes since 1200 today; last episode at 1830, this evening. He denies any associated symptoms along with the headaches. Nothing makes the pain better or worse. Patient states that he had a TIA 2 years ago in the right temporal region of his head which this reminds him of. - History Of Current Complaint Chief Complaint: EDHeadache Stated Complaint: RECURRING HEADACHES Time Seen by Provider: 01/14/18 20:19 Hx Obtained From: Patient Onset/Duration: Sudden Onset, Resolved Timing: Intermittent, Lasting:, Minutes - 4 mins at most Character: Sharp Location of Headache: Temporal - L temporal region Aggravating Factor: Nothing Allevating Factors: Nothing - Allergies/Home Medications Allergies/Adverse Reactions: Allergies Allergy/AdvReac Type Severity Reaction Status Date / Time No Known Allergies Allergy Verified 01/14/18 17:54 Home Medications: Home Medications Apixaban* [Eliquis*] 1 tab PO DAILY 01/14/18 [History Confirmed 01/14/18] PMH/Surg Hx/FS Hx/Imm Hx Endocrine/Hematology History: Reports: Hx Anemia Denies: Hx Diabetes Cardiovascular History: Reports: Hx Angina - heaviness, Hx Hypercholesterolemia , Hx Hypertension, Other Cardiovascular Problems/Disorders - Atrial septal defect Denies: Hx Congestive Heart Failure, Hx Pacemaker/ICD Respiratory History: Reports: Hx Sleep Apnea, Other Respiratory Problems/ Disorders - recent pneumonia diagnosis november 2016, finished all tx Denies: Hx Asthma GI History: Reports: Hx Gastroesophageal Reflux Disease, Hx Hiatal Hernia History: Reports: Hx Benign Prostatic Hyperplasia, Other Problems/ Disorders - BPH, bladder lesions Denies: Hx Dialysis, Hx Renal Disease Musculoskeletal History: Reports: Hx Arthritis, Hx Bursitis, Hx Gout, Hx Orthopedic Injury - left elbow fracture as teen., Hx Tendonitis, Other Musculoskeletal History - reports occas gout, no med Sensory History: Reports: Hx Contacts or Glasses - reading, Hx Hearing Aid - x2 , Hx Hearing Problem Opthamlomology History: Reports: Hx Contacts or Glasses - reading Neurological History: Reports: Hx Migraine, Other Neuro Impairments/Disorders - 2015 - reports TIA, many tests, found atrial septal defect at this time Psychiatric History: Reports: Hx Anxiety - hx of, no meds, Hx Depression - hx of , no meds Denies: Hx Panic Disorder - Surgical History Surgery Procedure, Year, and Place: Tonsils, appendectomy Hx Anesthesia Reactions: No Infectious Disease History: No Infectious Disease History: Denies: History Other Infectious Disease, Traveled Outside the [place] in Last 30 Days - Family History Known Family History: Positive: Cardiac Disease - Social History Occupation: Retired Lives: With Family Alcohol Use: None Alcohol Amount: 1 glass wine /day Substance Use Type: Reports: None Smoking Status (MU): Former Smoker Type: Cigarettes, Pipe Amount Used/How Often: 2/3 ppd - for 25 yrs, also used a pipe Length of Time of Smoking/Using Tobacco: pipe for 25 years25 year cigarettes (10 -20) per day Have You Smoked in the Last Year: No Review of Systems Negative: Fever, Chills, Fatigue, Skin Diaphoresis Negative: Photophobia, Blurred Vision, Diplopia, Drainage, Erythema Negative: Epistaxis, Dental Pain, Sore Throat, Ear Ache, Nasal Discharge Negative: Palpitations, Chest Pain Negative: Shortness Of Breath, Cough Negative: Abdominal Pain, Vomiting, Diarrhea, Nausea Negative: burning, dysuria, discharge, frequency, flank pain, hematuria, incontinence, pain, urgency Negative: Arthralgia, Myalgia, Decreased ROM, Edema Negative: Rash, Bruising Positive: Headache. Negative: Weakness, Paresthesia, Numbness, Syncope, Slurred Speech Negative: Anxious, Depressed All Other Systems Reviewed And Are Negative: Yes Physical Exam - Summary Physical Exam Summary: VITAL SIGNS: Reviewed. GENERAL: Patient is a well-developed and nourished male who is lying comfortable in the stretcher. Patient is not in any acute respiratory distress. HEAD AND FACE: No signs of trauma. No ecchymosis, hematomas or skull depressions. No sinus tenderness. EYES: PERRLA, EOMI x 2, No injected conjunctiva, no nystagmus. EARS: Hearing grossly intact. Ear canals and tympanic membranes are within normal limits. MOUTH: Oropharynx within normal limits. NECK: Supple, trachea is midline, no adenopathy, no JVD, no carotid bruit, no c- spine tenderness, neck with full ROM. CHEST: Symmetric, no tenderness at palpation LUNGS: Clear to auscultation bilaterally. No wheezing or crackles. CVS: Regular rate and rhythm, S1 and S2 present, no murmurs or gallops appreciated. ABDOMEN: Soft, non-tender. No signs of distention. No rebound no guarding, and no masses palpated. Bowel sounds are normal. EXTREMITIES: FROM in all major joints, no edema, no cyanosis or clubbing. NEURO: Alert and oriented x 3. No acute neurological deficits. Speech is normal and follows commands. SKIN: Dry and warm Triage Information Reviewed: Yes Vital Signs On Initial Exam: Initial Vitals Temp Pulse Resp BP Pulse Ox 97.7 F 66 16 134/93 97 01/14/18 17:49 01/14/18 17:49 01/14/18 17:49 01/14/18 17:49 01/14/18 17:49 Vital Signs Reviewed: Yes Diagnostics - Vital Signs Vital Signs Temp Pulse Resp BP Pulse Ox 01/14/18 17:49 97.7 F 66 16 134/93 97 - Laboratory Result Diagrams: 01/14/18 21:36 01/14/18 21:36 Lab Statement: Any lab studies that have been ordered have been reviewed, and results considered in the medical decision making process. - CT Brain CT CT Interpretation: No Acute Changes - IMPRESSION: No acute intracranial pathology CT Interpretation Completed By: ED Physician - ED physician reviewed this radiology report. Headache Course/Dx - Course Course Of Treatment: Patient was seen by provider. He ordered a brain CT to check on CRUZ's he has been experiencing. Results were negative and pt was D/C home with a Dx of CRUZ. - Diagnoses Provider Diagnoses: Headache Discharge - Sign-Out/Discharge Documenting (check all that apply): Patient Departure - Discharge Plan Condition: Stable Disposition: HOME Patient Education Materials: Acute Headache (ED) Referrals: Ye Uribe MD [Primary Care Provider] - 2 Days Additional Instructions: RETURN TO THE EMERGENCY DEPARTMENT FOR CHANGING OR WORSENING SYMPTOMS. FOLLOW UP WITH PCP IN 1-2 DAYS. - Attestation Statements Document Initiated by Scribe: Yes Documenting Scribe: Romero Toledo Provider For Whom Scribe is Documenting (Include Credential): David Welsh MD Scribe Attestation: Romero Merlos scribed for David Welsh MD on 01/14/18 at 2613.
--- NOTE | 2018-01-14 21:41 | RAD ---
EXAM: CT Head Without Intravenous Contrast CLINICAL HISTORY: 77 years old, male; Pain; Headache; Other: Left temporal region; Additional info: H/a. Sharp sudden pains to left temporal area. Has had x3 episodes since 1200. Denies any other symptoms while these episodes occur. No other lingering symptoms afterwards, HX TIA. end TECHNIQUE: Axial computed tomography images of the head/brain without intravenous contrast. All CT scans at this facility use at least one of these dose optimization techniques: automated exposure control; mA and/or kV adjustment per patient size (includes targeted exams where dose is matched to clinical indication); or iterative reconstruction. COMPARISON: BRAIN WO CT BRAIN WO 07/05/2015 5:58 PM FINDINGS: Brain: Nonspecific hypodensities of the periventricular and deep subcortical white matter, most likely secondary to chronic small vessel ischemic change. No intracranial hemorrhage or extra-axial fluid collection. No evidence of mass effect or midline shift. Rhodes-white matter differentiation is normal. Ventricles: Prominence of the ventricles and sulci, most likely attributed to parenchymal volume loss. Bones/joints: Unremarkable. No acute fracture. Soft tissues: Unremarkable. Sinuses: Unremarkable as visualized. No acute sinusitis. Mastoid air cells: Unremarkable as visualized. No mastoid effusion. IMPRESSION: No acute intracranial pathology.
[2018-01-14 21:43] LABS: Hematocrit 36 % (42-52); Hemoglobin 12.1 g/dl (14.0-18.0); Mean Corpuscular HGB Conc 33 g/dl (31-36); Mean Corpuscular Hemoglobin 28 pg (27-31); Mean Corpuscular Volume 85 fL (80-94); Mean Platelet Volume 10.2 um3 (7.4-10.4); Platelet Count 115 10^3/ul (150-450); Red Blood Count 4.25 10^6/ul (4.00-5.40); Red Cell Distribution Width 15 % (10.5-15); White Blood Count 6.2 10^3/ul (3.5-10.8)
[2018-01-14 22:02] LABS: EGFR Non-African American 62.1 (>60)
[2018-01-14 22:09] LABS: ABS Basophils 0 10^3/ul (0-0.2); ABS Eosinophils 0.3 10^3/ul (0-0.6); ABS Lymphocytes 1.8 10^3/ul (1.0-4.8); ABS Monocytes 0.6 10^3/ul (0-0.8); ABS Neutrophils 3.5 10^3/ul (1.5-7.7); ABS Nucleated RBC 0 10^3/ul; Eosinophil % 4.3 % (0-6); Lymphocyte % 28.4 % (25-47); Nucleated Red Blood Cells % 0.1
[2018-01-14 23:11] VITALS: BP 152/91
== END 2018-01-14 23:10 | disposition home or self-care (01) ==
LOC: ED 17:46
DX: R51 Headache (principal); Z87.891 Personal history of nicotine dependence; Z86.79 Personal history of other diseases of the circulatory system
CPT/HCPCS: 36415; 70450; 80053; 85025; 85610; 85652; 85730; 86140; 99282